=== PATIENT | female | born 1960 | race Two or more races ===

== ENCOUNTER 2016-12-15 22:25 | Emergency (ER) | payer MEDICAID ==
[~2016-12-15] VITALS: Ht 167.6 cm; Wt 97.5 kg
[2016-12-15 22:40] VITALS: BP 163/60
[2016-12-15] MEDS ORDERED: LORazepam Inj 2mg/ml 1ml IV ONE (22:45)
[2016-12-15] MEDS ORDERED: Albuterol ud Inhalation HHN ONE (22:45)
--- NOTE | 2016-12-15 22:46 | Emergency Room Report ---
History of Present Illness General Chief Complaint: General Complaint Source: Patient, Family Member Present Illness HPI The patient presents with 2 weeks of illness. It began when she was returning from [facility]. She had an episode of hypoglycemia when her blood sugar was 35. She ate some food that was not tasting proper on the plane. She's not felt well since that episode. Most recently though she has a cough. She denies asthma. She has been wheezing. The cough is not productive. There is no sore throat. She has a headache which she rates 8/10, worsened with coughing , pounding, frontal and top of head. Not worst ETIENNE and not sudden onset. No fevers or chills. Family state she suffers from anemia. She denies chest pain, NVD, dysuria. She complains of dizziness. She has continued to take her diabetes medicine and glucose has been better controlled. Allergies: Coded Allergies: No Known Allergies (Unverified , 12/15/16) Patient History Past Medical History: see triage record Social History: Denies: smoking Social History Narrative from [facility] Now: No Reviewed Nursing Documentation: PMH: Agreed, PSxH: Agreed Nursing Documentation-PMH Hx Hypertension: Yes Hx Diabetes: Yes Review of Systems All Other Systems: negative except mentioned in HPI Physical Exam Vital Signs Date Time Temp Pulse Resp B/P Pulse Ox O2 Delivery O2 Flow Rate FiO2 12/15/16 22:29 99.3 82 36 163/60 98 Room Air Sp02 EP Interpretation: reviewed, normal General Appearance: well appearing, no apparent distress, GCS 15 Head: normocephalic Eyes: bilateral eye EOMI, bilateral eye PERRL, bilateral eye normal inspection ENT: moist mucus membranes Neck: supple Respiratory: chest non-tender, lungs clear, normal breath sounds, wheezing - post tussive Cardiovascular #1: regular rate, rhythm Cardiovascular #2: 2+ radial (R) Gastrointestinal: normal inspection, normal bowel sounds, non tender, no mass, non-distended Musculoskeletal: back normal, gait/station normal, normal range of motion Neurologic: alert, oriented x3, 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, motor strength/tone normal, DTRs symmetric, sensory intact, cerebellar normal, normal gait, speech normal, grossly normal Psychiatric: anxious Skin: normal inspection, warm/dry Medical Decision Making Diagnostic Impression: Primary Impression: Upper respiratory infection Qualified Codes: J06.9 - Acute upper respiratory infection, unspecified; B97.89 - Other viral agents as the cause of diseases classified elsewhere Additional Impressions: Diabetes Qualified Codes: E11.8 - Type 2 diabetes mellitus with unspecified complications Bronchospasm ER Course Patient presents with 2 weeks of illness with cough and headache after return from [facility]. Ddx: pneumonia, viral syndrome, bronchitis, asthma, anxiety amongst others. No red flag sy or findings for the headache. Evidence of bronchospasm. Glucose and renal function needs to be assessed as well as excluding cardiac cause. Labs, CXR and EKG ordered. Breathing treatments ordered. Ativan also ordered as anxiety also significant component. Labs remarkable for normal WBC, minimal anemia. Glucose slightly elevated. ( Potassium felt to be more hemolysis as renal function upper limits of normal.) No peaked T waves on EKG. CXR without infiltrate. Patient improved with treatment. Resting in NAD. Lungs clear. Patient stable for outpatient observation and treatment. Labs Test 12/15/16 23:00 White Blood Count 8.1 K/UL (4.8-10.8) Red Blood Count 4.05 M/UL (4.20-5.40) Hemoglobin 11.6 G/DL (12.0-16.0) Hematocrit 35.6 % (37.0-47.0) Mean Corpuscular Volume 88 FL (80-99) Mean Corpuscular Hemoglobin 28.6 PG (27.0-31.0) Mean Corpuscular Hemoglobin Concent 32.5 G/DL (32.0-36.0) Red Cell Distribution Width 13.3 % (11.6-14.8) Platelet Count 271 K/UL (150-450) Mean Platelet Volume 8.9 FL (6.5-10.1) Neutrophils (%) (Auto) 71.5 % (45.0-75.0) Lymphocytes (%) (Auto) 18.2 % (20.0-45.0) Monocytes (%) (Auto) 6.9 % (1.0-10.0) Eosinophils (%) (Auto) 2.0 % (0.0-3.0) Basophils (%) (Auto) 1.4 % (0.0-2.0) Prothrombin Time 9.4 SEC (9.30-11.50) Prothromb Time International Ratio 0.9 (0.9-1.1) Activated Partial Thromboplast Time 26 SEC (23-33) Urine Color Pale yellow Urine Appearance Clear Urine pH 6 (4.5-8.0) Urine Specific Shepherd 1.005 (1.005-1.035) Urine Protein Negative (NEGATIVE) Urine Glucose (UA) 2+ (NEGATIVE) Urine Ketones Negative (NEGATIVE) Urine Occult Blood Negative (NEGATIVE) Urine Nitrite Negative (NEGATIVE) Urine Bilirubin Negative (NEGATIVE) Urine Urobilinogen Normal MG/DL (0.0-1.0) Urine Leukocyte Esterase 1+ (NEGATIVE) Urine RBC 0-2 /HPF (0 - 2) Urine WBC 0-2 /HPF (0 - 2) Urine Squamous Epithelial Cells Few /LPF (NONE/OCC) Urine Bacteria None /HPF (NONE) Sodium Level 136 mEQ/L (135-145) Potassium Level 5.5 mEQ/L (3.4-4.9) Chloride Level 100 mEQ/L (98-107) Carbon Dioxide Level 23 mEQ/L (20-30) Anion Gap 13 (5-15) Blood Urea Nitrogen 22 mg/dL (7-23) Creatinine 1.0 mg/dL (0.5-0.9) Estimat Glomerular Filtration Rate 56.9 mL/min (>60) Glucose Level 233 mg/dL (74-106) Lactic Acid Level 1.50 mmol/L (0.66-2.22) Calcium Level 9.3 mg/dL (8.6-10.2) Total Bilirubin 0.2 mg/dL (0.0-1.2) Aspartate Amino Transf (AST/SGOT) 34 U/L (5-40) Alanine Aminotransferase (ALT/SGPT) 18 U/L (3-33) Alkaline Phosphatase 70 U/L (35-104) Total Creatine Kinase 112 U/L (26-140) Troponin I < 0.30 ng/mL (<=0.30) Pro-B-Type Natriuretic Peptide 45 pg/mL (0-125) Total Protein 8.0 g/dL (6.6-8.7) Albumin 4.0 g/dL (3.5-5.2) Globulin 4.0 g/dL Albumin/Globulin Ratio 1.0 (1.0-2.7) Thyroid Stimulating Hormone (TSH) 1.690 uIU/mL (0.300-4.500) Salicylates Level < 1 mg/dL (10-30) Urine Opiates Screen Negative (NEGATIVE) Acetaminophen Level < 10 ug/mL (10-30) Urine Barbiturates Screen Negative (NEGATIVE) Phencyclidine (PCP) Screen Negative (NEGATIVE) Urine Amphetamines Screen Negative (NEGATIVE) Urine Benzodiazepines Screen Negative (NEGATIVE) Urine Cocaine Screen Negative (NEGATIVE) Urine Marijuana (THC) Screen Negative (NEGATIVE) Serum Alcohol < 10 mg/dL EKG Diagnostic Results Rate: normal Rhythm: NSR ST Segments: no acute changes Rhythm Strip Diag. Results EP Interpretation: yes Rhythm: NSR, no PVC's, no ectopy Chest X-Ray Diagnostic Results Chest X-Ray Diagnostic Results : Chest X-Ray Ordered: Yes # of Views/Limited/Complete: 1 View Indication: Other EP Interpretation: Yes Interpretation: no consolidation, no effusion, no pneumothorax, no acute cardiopulmonary disease Impression: No acute disease Interpreting ER Provider: Electronically signed by Sudeep Bautista MD Last Vital Signs Date Time Temp Pulse Resp B/P Pulse Ox O2 Delivery O2 Flow Rate FiO2 12/16/16 03:15 99.1 79 19 159/65 98 Room Air Status: improved Disposition: HOME, SELF-CARE Condition: Improved Scripts Acetaminophen (Tylenol) 325 Mg Tablet 650 MG ORAL Q6H Y for Prn Pain/Headache/Temp > 101, #30 TAB 0 Refills Prov: Sudeep Bautista M.D. 12/16/16 Codeine/Promethazine Hcl* (PROMETHAZINE-CODEINE SYRUP*) 118 Ml Syrup 5 ML ORAL Q6H Y for For Cough, #60 ML 0 Refills Prov: Sudeep Bautista M.D. 12/16/16 Albuterol Sulfate* (ALBUTEROL SULFATE MDI*) 8.5 Gm Hfa.aer.ad 2 PUFF INH Q6H, #1 EA 0 Refills Prov: Sudeep Bautista M.D. 12/16/16 Sudeep Bautista M.D. Dec 15, 2016 22:46
[2016-12-15 23:24] LABS: BASOPHILS % (AUTO) 1.4 % (0.0-2.0); LYMPHOCYTES % (AUTO) 18.2 % (20.0-45.0); MEAN CORPUSCULAR HEMOGLOBIN 28.6 PG (27.0-31.0); MEAN CORPUSCULAR HGB CONC 32.5 G/DL (32.0-36.0); MEAN CORPUSCULAR VOLUME 88 FL (80-99); MEAN PLATELET VOLUME 8.9 FL (6.5-10.1); MONOCYTES % (AUTO) 6.9 % (1.0-10.0); NEUTROPHILS % (AUTO) 71.5 % (45.0-75.0); PLATELET COUNT 271 K/UL (150-450); RED BLOOD COUNT 4.05 M/UL (4.20-5.40); RED CELL DISTRIBUTION WIDTH 13.3 % (11.6-14.8); WHITE BLOOD COUNT 8.1 K/UL (4.8-10.8)
[2016-12-15 23:27] LABS: APPEARANCE,URINE CLEAR; KETONES,URINE NEGATIVE (NEGATIVE); LEUKOCYTE ESTERASE ,URINE 1+ (NEGATIVE); NITRITE,URINE NEGATIVE (NEGATIVE); PH,URINE 6 (4.5-8.0); PROTEIN,URINE NEGATIVE (NEGATIVE); UROBILINOGEN,URINE NORMAL MG/DL (0.0-1.0)
[2016-12-15 23:31] LABS: INR 0.9 (0.9-1.1); PROTHROMBIN TIME 9.4 SEC (9.30-11.50); RBC,URINE 0-2 /HPF (0 - 2); SQUAMOUS EPITHELIAL CELL,UR FEW /LPF (NONE/OCC); WBC,URINE 0-2 /HPF (0 - 2)
[2016-12-15 23:35] LABS: TROPONIN I < 0.30 ng/mL (<=0.30)
[2016-12-15 23:38] LABS: ACETAMINOPHEN < 10 ug/mL (10-30); ALANINE AMINOTRANSFERASE 18 U/L (3-33); ALCOHOL < 10 mg/dL; ANION GAP 13 (5-15); ASPARTATE AMINO TRANSFERASE 34 U/L (5-40); CALCIUM 9.3 mg/dL (8.6-10.2); CARBON DIOXIDE 23 mEQ/L (20-30); CHLORIDE 100 mEQ/L (98-107); GLOMERULAR FILTRATION RATE 56.9 mL/min (>60); HEMOLYSIS 170; POTASSIUM 5.5 mEQ/L (3.4-4.9); SODIUM 136 mEQ/L (135-145)
[2016-12-16 00:40] VITALS: BP 155/61
[2016-12-16 02:40] VITALS: BP 149/69
[2016-12-16] MEDS ORDERED: PROMETHAZINE-C118 M1 ORAL (02:51)
[2016-12-16] MEDS ORDERED: TYLENOL325 MG ORAL (02:51)
[2016-12-16] MEDS ORDERED: ALBUTEROL SULF8.5 GM INH (02:51)
[2016-12-16 03:15] VITALS: BP 159/65
--- NOTE | 2016-12-16 09:29 | Diagnostic Imaging Report ---
Indication: Chest pain Technique: XRAY CHEST 1 V Comparison:None Findings: The patient has taken a poor inspiration. The heart is at the upper limits of normal size. Lungs are grossly clear. No pleural fluid. Bones are unremarkable. Study is underpenetrated due to patient body habitus. Impression: Poor inspiration with some underpenetration due to patient body habitus. Heart the upper limits of normal size. No gross acute abnormality.
== END 2016-12-16 03:15 | disposition home or self-care (01) ==
LOC: EMR 22:44
DX: J06.9 Acute upper respiratory infection, unspecified (principal); J98.01 Acute bronchospasm; E11.8 Type 2 diabetes mellitus with unspecified complications; I10 Essential (primary) hypertension; R42 Dizziness and giddiness
CPT/HCPCS: 36415; 71010; 80053; 80300; 80329; 81003; 82550; 82962; 83605; 83880; 84443; 84484; 85025; 85610; 85730; 93005; 94640; 96360; 96374

== ENCOUNTER 2017-05-29 23:09 | Emergency (ER) | payer MEDICAID ==
[~2017-05-29] VITALS: Ht 160 cm; Wt 95.3 kg
[~2017-05-29 23:09] MED LIST: ALBUTEROL SULF8.5 GM INH; PROMETHAZINE-C118 M1 ORAL; TYLENOL325 MG ORAL
[2017-05-29] MEDS ORDERED: DOXYCYCLINE MO100 MG ORAL (23:52)
[2017-05-29] MEDS ORDERED: MUPIROCIN22 GM TOPIC (23:52)
--- NOTE | 2017-05-29 23:52 | Emergency Room Report ---
History of Present Illness General Chief Complaint: Wound Recheck/Suture Removal Source: Patient Present Illness HPI This is a 56-year-old female with a history of diabetes. She presents with chief complaint of pain to her left foot. She said she noticed some pain in the sole of the left foot. She thought it may be a foreign body there. She remove her socks and said that there was a crack in the skin. Is very painful. Pain radiates to her leg. No fever chills no nausea vomiting. No discharge. No redness. Onset for 2-3 days now. Allergies: Coded Allergies: No Known Allergies (Unverified , 12/15/16) Patient History Past Medical History: see triage record, old chart reviewed, DM Past Surgical History: other Pertinent Family History: none Social History: Denies: smoking Now: No Immunizations: other Reviewed Nursing Documentation: PMH: Agreed, PSxH: Agreed Nursing Documentation-PMH Hx Hypertension: Yes Hx Diabetes: Yes Review of Systems Eye: Denies: eye pain, blurred vision ENT: Denies: ear pain, nose congestion, throat swelling Respiratory: Denies: cough, shortness of breath Cardiovascular: Denies: chest pain, palpitations Gastrointestinal: Denies: abdominal pain, diarrhea, nausea, vomiting Musculoskeletal: Denies: back pain, joint pain Skin: Denies: rash Neurological: Denies: headache, numbness Endocrine: Denies: increased thirst, increased urine Hematologic/Lymphatic: Denies: easy bruising All Other Systems: negative except mentioned in HPI Physical Exam Vital Signs Date Time Temp Pulse Resp B/P (MAP) Pulse Ox O2 Delivery O2 Flow Rate FiO2 05/29/17 23:19 97.9 67 16 148/74 96 Room Air vitals normal Sp02 EP Interpretation: reviewed, normal General Appearance: well appearing, no apparent distress, alert, obese Head: normocephalic, atraumatic Eyes: bilateral eye PERRL, bilateral eye EOMI ENT: hearing grossly normal, normal pharynx Neck: full range of motion, supple, no meningismus Respiratory: chest non-tender, lungs clear, normal breath sounds Cardiovascular #1: regular rate, rhythm, no murmur Gastrointestinal: normal bowel sounds, non tender, no mass, no organomegaly, no bruit, non-distended Musculoskeletal: back normal, gait/station normal, normal range of motion, other - Left foot: On the sole of the foot, she has dry skin and calluses. There is a 3 cm crack in the callus with underlying skin exposed. No evidence of infection. No drainage. Psychiatric: mood/affect normal Skin: warm/dry Medical Decision Making Diagnostic Impression: Primary Impression: Diabetic foot ulcer Qualified Codes: E11.621 - Type 2 diabetes mellitus with foot ulcer; L97.511 - Non-pressure chronic ulcer of other part of right foot limited to breakdown of skin ER Course Patient with a break in his skin, or ulcers last callus of her foot. Increased risk for infection. Right now I see no evidence of infection or foreign body. No evidence of abscess or necrotizing fasciitis. We'll discharge home prescription for antibiotics. Last Vital Signs Date Time Temp Pulse Resp B/P (MAP) Pulse Ox O2 Delivery O2 Flow Rate FiO2 05/29/17 23:24 97.9 88 16 148/74 96 Room Air Status: unchanged Disposition: HOME, SELF-CARE Condition: Stable Scripts Mupirocin* (MUPIROCIN*) 22 Gm Oint...g. 1 APPLIC TOPIC THREE TIMES A DAY, #22 GM Prov: BANDAR RAMIREZ M.D. 05/29/17 Doxycycline Monohydrate* (DOXYCYCLINE MONOHYDRATE*) 100 Mg Capsule 100 MG ORAL Q12H, #14 CAP 0 Refills Prov: BANDAR RAMIREZ M.D. 05/29/17 Referrals: [facility],REFERRING (PCP) Additional Instructions: Keep wound clean. Followup with your DrMery in 7 days. Return for evidence of infection. BANDAR RAMIREZ M.D. May 29, 2017 23:52
[2017-05-29 23:53] VITALS: BP 148/74
[2017-05-30] MEDS ORDERED: Bacitracin Oint UD TOPIC ONE
== END 2017-05-30 00:01 | disposition home or self-care (01) ==
LOC: EMR 23:38
DX: E11.621 Type 2 diabetes mellitus with foot ulcer (principal); L97.511 Non-pressure chronic ulcer of other part of right foot limited to breakdown of skin; I10 Essential (primary) hypertension
CPT/HCPCS: 99284

== ENCOUNTER 2018-02-06 04:11 | Emergency (ER) | payer MEDICAID ==
[~2018-02-06] VITALS: Ht 160 cm; Wt 95.3 kg
[~2018-02-06 04:11] MED LIST changes: +DOXYCYCLINE MO100 MG ORAL; +MUPIROCIN22 GM TOPIC
[2018-02-06 04:20] VITALS: BP 151/73
--- NOTE | 2018-02-06 04:41 | Emergency Room Report ---
History of Present Illness General Chief Complaint: Headache Source: Patient, Medical Record Present Illness HPI Is a 57-year-old female with history of high blood pressure and diabetes. She presents with chief complaint of body pain and headache and forgetfulness. Has been ongoing for over a month. Saw yesterday and x-rays ordered for her shoulder. She said that pain usually worse at night. Has nausea but no vomiting. Also complaining of increasing forgetfulness. No focal deficit. No fever chills. Pain is throbbing in nature. Nothing made it better. Nothing made it worse. No incontinence of bowel or urine. Allergies: Coded Allergies: No Known Allergies (Unverified , 12/15/16) Patient History Past Medical History: see triage record, old chart reviewed, DM, HTN Past Surgical History: other Pertinent Family History: none Social History: Denies: smoking Now: No Immunizations: other Reviewed Nursing Documentation: PMH: Agreed; PSxH: Agreed Nursing Documentation-PMH Hx Hypertension: Yes Hx Diabetes: Yes Review of Systems Eye: Denies: eye pain, blurred vision ENT: Denies: ear pain, nose congestion, throat swelling Respiratory: Denies: cough, shortness of breath Cardiovascular: Denies: chest pain, palpitations Gastrointestinal: Denies: abdominal pain, diarrhea, nausea, vomiting Musculoskeletal: Denies: back pain, joint pain Skin: Denies: rash Neurological: Denies: headache, numbness Endocrine: Denies: increased thirst, increased urine Hematologic/Lymphatic: Denies: easy bruising All Other Systems: negative except mentioned in HPI Physical Exam Vital Signs Date Time Temp Pulse Resp B/P (MAP) Pulse Ox O2 Delivery O2 Flow Rate FiO2 02/06/18 04:14 98.5 70 16 151/73 97 Room Air 98.4 vitals with high blood pressure Sp02 EP Interpretation: reviewed, normal General Appearance: well appearing, no apparent distress, alert, obese Head: normocephalic, atraumatic Eyes: bilateral eye PERRL, bilateral eye EOMI ENT: hearing grossly normal, normal pharynx Neck: full range of motion, supple, no meningismus Respiratory: chest non-tender, lungs clear, normal breath sounds Cardiovascular #1: regular rate, rhythm, no murmur Gastrointestinal: normal bowel sounds, non tender, no mass, no organomegaly, no bruit, non-distended Musculoskeletal: back normal, gait/station normal, normal range of motion Psychiatric: mood/affect normal Skin: warm/dry Medical Decision Making Diagnostic Impression: Primary Impression: Headache Qualified Codes: R51 - Headache Additional Impression: Arthralgia Qualified Codes: M25.50 - Pain in unspecified joint ER Course Patient presents with headache, body pain and forgetfulness. Labs unremarkable. No evidence of infection. No evidence of TIA or CVA. No acute process going on. We'll discharge home with outpatient follow-up. Lab Results Impression labs unremarkable CT/MRI/US Diagnostic Results CT/MRI/US Diagnostic Results : Imaging Test Ordered: CT head Impression negative per radiologist Last Vital Signs Date Time Temp Pulse Resp B/P (MAP) Pulse Ox O2 Delivery O2 Flow Rate FiO2 02/06/18 04:14 98.5 70 16 151/73 97 Room Air 98.4 Status: improved Disposition: HOME, SELF-CARE Condition: Stable Scripts Meloxicam* (MOBIC*) 7.5 Mg Tablet 7.5 MG ORAL DAILY, #30 TAB 0 Refills Prov: BANDAR RAMIREZ M.D. 02/06/18 Referrals: NON PHYSICIAN (PCP) Patient Instructions: General Headache Without Cause Additional Instructions: Follow-up with your doctor in 7 days. Return if worse. BANDAR RAMIREZ M.D. Feb 06, 2018 04:40
[2018-02-06] MEDS ORDERED: Ketorolac 30mg Inj IV ONE (04:45)
[2018-02-06 04:52] LABS: APPEARANCE,URINE CLEAR; BILIRUBIN, URINE NEGATIVE (NEGATIVE); COLOR,URINE PALE YELLOW; GLUCOSE, URINE (UA) 1+ (NEGATIVE); KETONES,URINE NEGATIVE (NEGATIVE); LEUKOCYTE ESTERASE ,URINE 1+ (NEGATIVE); NITRITE,URINE NEGATIVE (NEGATIVE); PH,URINE 7 (4.5-8.0); PROTEIN,URINE NEGATIVE (NEGATIVE); UROBILINOGEN,URINE NORMAL MG/DL (0.0-1.0)
[2018-02-06 05:17] LABS: BASOPHILS % (AUTO) 0.7 % (0.0-2.0); HEMATOCRIT 35.6 % (37.0-47.0); HEMOGLOBIN 11.3 G/DL (12.0-16.0); LYMPHOCYTES % (AUTO) 17.2 % (20.0-45.0); MEAN CORPUSCULAR VOLUME 85 FL (80-99); MONOCYTES % (AUTO) 6.2 % (1.0-10.0); NEUTROPHILS % (AUTO) 73.9 % (45.0-75.0); PLATELET COUNT 236 K/UL (150-450); RED CELL DISTRIBUTION WIDTH 12.7 % (11.6-14.8); WHITE BLOOD COUNT 7.6 K/UL (4.8-10.8)
[2018-02-06 05:25] LABS: ANION GAP 8 mmol/L (5-15); BLOOD UREA NITROGEN 26 mg/dL (7-18); CALCIUM 8.9 MG/DL (8.5-10.1); CARBON DIOXIDE 27 MMOL/L (21-32); CHLORIDE 106 MMOL/L (98-107); SODIUM 141 MMOL/L (136-145)
[2018-02-06 05:36] VITALS: BP 138/50
--- NOTE | 2018-02-06 05:46 | Diagnostic Imaging Report ---
EXAM: CT Head Without Intravenous Contrast CLINICAL HISTORY: AMS TECHNIQUE: Axial computed tomography images of the head/brain without intravenous contrast. CTDI is 70.43 mGy and DLP is 1397 mGy-cm. One or more of the following dose reduction techniques were used: automated exposure control, adjustment of the mA and/or kV according to patient size, use of iterative reconstruction technique. COMPARISON: No relevant prior studies available. FINDINGS: Artifacts: Motion artifact degrade image quality. Brain: Unremarkable. No hemorrhage. No significant white matter disease. No edema. Ventricles: Unremarkable. No ventriculomegaly. Bones/joints: Unremarkable. No acute fracture. Soft tissues: Unremarkable. Sinuses: Mild mucosal thickening in the ethmoid sinuses. Mastoid air cells: Unremarkable as visualized. No mastoid effusion. IMPRESSION: Motion artifact. No acute intracranial abnormality. As indicated, consider further evaluation with MR to exclude hyperacute infarct
[2018-02-06] MEDS ORDERED: MOBIC7.5 MG ORAL (06:02)
[2018-02-06 06:07] VITALS: BP 138/50
== END 2018-02-06 06:19 | disposition home or self-care (01) ==
LOC: EMR 04:32
DX: R51 Headache (principal); M25.50 Pain in unspecified joint; E11.9 Type 2 diabetes mellitus without complications; I10 Essential (primary) hypertension; R11.0 Nausea
CPT/HCPCS: 36415; 70450; 80048; 81001; 85025; 96361; 96374; 99284; J1885

== ENCOUNTER 2018-09-11 20:42 | Inpatient (IN) | payer MEDICAID ==
[~2018-09-11] VITALS: Ht 157.5 cm; Wt 97.5 kg
[~2018-09-11 20:42] MED LIST changes: +MOBIC7.5 MG ORAL
[2018-09-11] MEDS ORDERED: GLUCOTROL XL10 MG ORAL (21:08)
[2018-09-11] MEDS ORDERED: ASPIR 8181 MG ORAL (21:08)
[2018-09-11] MEDS ORDERED: BENAZEPRIL HCL20 MG ORAL (21:08)
[2018-09-11] MEDS ORDERED: METFORMIN HCL1000 M1 ORAL (21:08)
[2018-09-11 21:10] VITALS: BP 110/54
--- NOTE | 2018-09-11 21:10 | NUR ---
ED Nurse Note: pt walked in c/o abd pain, ETIENNE, and dizziness x 1 day, pt denies n/v/d, denies fever. pt AA&ox4, gcs=15, skin warm and dry, afebrile, resp even and unlabored on RA, +tenderness on abd, -n/v/d at this time, active BS, ambulates w/ steady gait, will cont monitor. VSS.
[2018-09-11] MEDS ORDERED: Isovue-300 100ml vial INJ PRN (21:30)
[2018-09-11] MEDS ORDERED: Morphine Sulfate 4mg/ml Inj (IV USE ONLY) IVP ONE (21:30)
[2018-09-11] MEDS ORDERED: Metoclopramide 10mg/2ml Inj IVP ONE (21:30)
[2018-09-11 22:02] LABS: APPEARANCE,URINE SLIGHTLY CLOUDY; BILIRUBIN, URINE NEGATIVE (NEGATIVE); COLOR,URINE YELLOW; GLUCOSE, URINE (UA) NEGATIVE (NEGATIVE); KETONES,URINE 1+ (NEGATIVE); LEUKOCYTE ESTERASE ,URINE 2+ (NEGATIVE); NITRITE,URINE NEGATIVE (NEGATIVE); PH,URINE 5 (4.5-8.0); PROTEIN,URINE 3+ (NEGATIVE); UROBILINOGEN,URINE 1 MG/DL (0.0-1.0)
[2018-09-11 22:03] LABS: HEMATOCRIT 33.9 % (37.0-47.0); HEMOGLOBIN 10.8 G/DL (12.0-16.0); MEAN CORPUSCULAR VOLUME 83 FL (80-99); PLATELET COUNT 231 K/UL (150-450); RED BLOOD COUNT 4.09 M/UL (4.20-5.40); RED CELL DISTRIBUTION WIDTH 13.9 % (11.6-14.8); WHITE BLOOD COUNT 13.3 K/UL (4.8-10.8)
[2018-09-11 22:10] VITALS: BP 112/51
[2018-09-11 22:19] LABS: ANION GAP 12 mmol/L (5-15); BLOOD UREA NITROGEN 24 mg/dL (7-18); CALCIUM 9.1 MG/DL (8.5-10.1); CARBON DIOXIDE 25 MMOL/L (21-32); CHLORIDE 102 MMOL/L (98-107); CREATININE 1.2 MG/DL (0.55-1.30); POTASSIUM 4.3 MMOL/L (3.5-5.1); SODIUM 139 MMOL/L (136-145)
[2018-09-11 22:25] LABS: ALANINE AMINOTRANSFERASE 32 U/L (12-78); ALBUMIN 3.8 G/DL (3.4-5.0); ALBUMIN/GLOBULIN RATIO 0.8 (1.0-2.7); ALKALINE PHOSPHATASE 76 U/L (46-116); ASPARTATE AMINO TRANSFERASE 15 U/L (15-37); BILIRUBIN,TOTAL 0.3 MG/DL (0.2-1.0)
--- NOTE | 2018-09-11 22:30 | NUR ---
ED Nurse Note: pt provided with warm blanket for comfort. VSS. will cont monitor.
--- NOTE | 2018-09-11 22:36 | NUR ---
ED Nurse Note: pt off to CT.
[2018-09-11 23:10] VITALS: BP 108/54
--- NOTE | 2018-09-11 23:15 | Diagnostic Imaging Report ---
EXAM: CT Abdomen and Pelvis With Intravenous Contrast CLINICAL HISTORY: ABD PAIN TECHNIQUE: Axial computed tomography images of the abdomen and pelvis with intravenous contrast. CTDI is 19.66 mGy and DLP is 1035 mGy-cm. One or more of the following dose reduction techniques were used: automated exposure control, adjustment of the mA and/or kV according to patient size, use of iterative reconstruction technique. COMPARISON: none FINDINGS: Lung bases: Unremarkable. No mass. No consolidation. ABDOMEN: Liver: Unremarkable. No mass. Gallbladder and bile ducts: Unremarkable. No calcified stones. No ductal dilation. Pancreas: Unremarkable. No mass. No ductal dilation. Spleen: Unremarkable. No splenomegaly. Adrenals: Unremarkable. No mass. Kidneys and ureters: Unremarkable. No solid mass. No hydronephrosis. Stomach and bowel: Unremarkable. No obstruction. No mucosal thickening. PELVIS: Appendix: An appendicolith is present at the appendiceal orifice and the appendix is mildly dilated to 9 mm diameter no significant periappendiceal inflammatory stranding is present. Bladder: Unremarkable. No mass. Reproductive: Hysterectomy. ABDOMEN and PELVIS: Intraperitoneal space: Unremarkable. No free air. No significant fluid collection. Bones/joints: No acute fracture. No dislocation. Soft tissues: Unremarkable. Vasculature: Unremarkable. No abdominal aortic aneurysm. Lymph nodes: Unremarkable. No enlarged lymph nodes. IMPRESSION: No definite acute pathology in the abdomen or pelvis. Note that patient has an appendicolith in the proximal appendix and the more distal appendix is slightly distended. Correlate for any clinical findings of inflammation as early acute appendicitis can appear similar.
[2018-09-12] VITALS (11 sets, daily range): BP systolic 116–148; BP diastolic 48–82
--- NOTE | 2018-09-12 00:52 | Consultation ---
History of Present Illness General Date patient seen: Sep 12, 2018 Reason for Hospitalization: Abdominal Pain Present Illness HPI 58F hx of DM, HTN, prior c section presented to ED with complaints of abdominal pain which is generalized mid abdominal cramping with radiation to RLQ. states pain started last night / this morning. No associated nausea or emesis. BM today which was a bit more loose than usual. Pain cramping 8/10 worse with movement and palpation. CT with appendicolith and dilated appendix. leukocytosis. surgery called to evaluate. patient seen, chart reviewed, patient examined. Allergies: Coded Allergies: No Known Allergies (Unverified , 12/15/16) Medication History Scheduled Aspirin* (Aspir 81*), 81 MG ORAL DAILY, (Reported) Benazepril Hcl* (Benazepril Hcl*), 20 MG ORAL EVERY 12 HOURS, (Reported) Glipizide* (Glucotrol Xl*), 10 MG ORAL ACBREAKFAST, (Reported) Meloxicam* (Mobic*), 7.5 MG ORAL DAILY Metformin Hcl* (Metformin Hcl*), 1,000 MG ORAL DAILY, (Reported) Patient History History Provided By: Patient, Medical Record, PMD Healthcare decision maker Resuscitation status Advanced Directive on File Review of Systems Review of Symptoms General ROS: no weight loss or fever Psychological ROS: no depression or mood changes, no memory loss Ophthalmic ROS: no visual changes or eye irritation ENT ROS: no nasal congestion, hearing loss, dizziness Allergy and Immunology ROS: no allergic symptoms or urticaria Hematological and Lymphatic ROS: no swollen glands, unusual bleeding or bruising Endocrine ROS: no polyuria, polydipsia, weight changes, temperature intolerance Respiratory ROS: no cough, shortness of breath, or wheezing Cardiovascular ROS: no chest pain or dyspnea on exertion Gastrointestinal ROS: abdominal pain, no bright red blood in stool. Musculoskeletal ROS: no myalgias or arthralgias Neurological ROS: no TIA or stroke symptoms Dermatological ROS: no new or changing skin lesions, rashes or pruritis Physical Exam Physical Exam General appearance: alert, cooperative, no distress, appears stated age Head: Normocephalic, without obvious abnormality, atraumatic Eyes: conjunctivae/corneas clear. PERRL, EOM's intact. Fundi benign Throat: Lips, mucosa, and tongue normal. Teeth and gums normal Neck: supple, symmetrical, trachea midline, no adenopathy, thyroid: not enlarged, symmetric, no tenderness/mass/nodules, no carotid bruit and no JVD Lungs: clear to auscultation bilaterally Heart: regular rate and rhythm, S1, S2 normal, no murmur, click, rub or gallop Abdomen: soft, tender on right side and mid abdomen. Bowel sounds normal. No masses, no organomegaly Extremities: extremities normal, atraumatic, no cyanosis or edema Pulses: 2+ and symmetric Skin: Skin color, texture, turgor normal. No rashes or lesions Neurologic: Grossly normal Last 24 Hour Vital Signs Date Time Temp Pulse Resp B/P (MAP) Pulse Ox O2 Delivery O2 Flow Rate FiO2 09/11/18 23:10 97.7 71 18 108/54 100 Room Air 09/11/18 22:10 97.7 73 18 112/51 100 Room Air 09/11/18 21:10 98.8 84 16 110/54 96 Room Air 09/11/18 21:10 84 16 Room Air 09/11/18 21:03 98.8 84 26 117/60 96 Room Air Laboratory Tests Test 09/11/18 21:40 09/11/18 21:42 Urine Color Yellow Urine Appearance Slightly cloudy Urine pH 5 (4.5-8.0) Urine Specific [place] 1.020 (1.005-1.035) Urine Protein 3+ (NEGATIVE) H Urine Glucose (UA) Negative (NEGATIVE) Urine Ketones 1+ (NEGATIVE) H Urine Blood Negative (NEGATIVE) Urine Nitrite Negative (NEGATIVE) Urine Bilirubin Negative (NEGATIVE) Urine Urobilinogen 1 MG/DL (0.0-1.0) H Urine Leukocyte Esterase 2+ (NEGATIVE) H Urine RBC 0-2 /HPF (0 - 2) Urine WBC 5-10 /HPF (0 - 2) H Urine Squamous Epithelial Cells Moderate /LPF (NONE/OCC) H Urine Bacteria Few /HPF (NONE) Urine Mucus Many /LPF (NONE/OCC) H White Blood Count 13.3 K/UL (4.8-10.8) H Red Blood Count 4.09 M/UL (4.20-5.40) L Hemoglobin 10.8 G/DL (12.0-16.0) L Hematocrit 33.9 % (37.0-47.0) L Mean Corpuscular Volume 83 FL (80-99) Mean Corpuscular Hemoglobin 26.3 PG (27.0-31.0) L Mean Corpuscular Hemoglobin Concent 31.7 G/DL (32.0-36.0) L Red Cell Distribution Width 13.9 % (11.6-14.8) Platelet Count 231 K/UL (150-450) Mean Platelet Volume 7.1 FL (6.5-10.1) Neutrophils (%) (Auto) % (45.0-75.0) Lymphocytes (%) (Auto) % (20.0-45.0) Monocytes (%) (Auto) % (1.0-10.0) Eosinophils (%) (Auto) % (0.0-3.0) Basophils (%) (Auto) % (0.0-2.0) Sodium Level 139 MMOL/L (136-145) Potassium Level 4.3 MMOL/L (3.5-5.1) Chloride Level 102 MMOL/L (98-107) Carbon Dioxide Level 25 MMOL/L (21-32) Anion Gap 12 mmol/L (5-15) Blood Urea Nitrogen 24 mg/dL (7-18) H Creatinine 1.2 MG/DL (0.55-1.30) Estimat Glomerular Filtration Rate 45.9 mL/min (>60) Glucose Level 116 MG/DL (74-106) H Calcium Level 9.1 MG/DL (8.5-10.1) Total Bilirubin 0.3 MG/DL (0.2-1.0) Aspartate Amino Transf (AST/SGOT) 15 U/L (15-37) Alanine Aminotransferase (ALT/SGPT) 32 U/L (12-78) Alkaline Phosphatase 76 U/L (46-116) Total Protein 8.4 G/DL (6.4-8.2) H Albumin 3.8 G/DL (3.4-5.0) Globulin 4.6 g/dL Albumin/Globulin Ratio 0.8 (1.0-2.7) L Lipase 132 U/L (73-393) Height (Feet): 5 Height (Inches): 3.00 Weight (Pounds): 215 Medications Current Medications Medications (Trade) Dose Ordered Sig/Nguyen Route PRN Reason Start Time Stop Time Status Last Admin Dose Admin Iopamidol (Isovue-300 100ml) 100 ml NOW PRN INJ Radiology Procedure 09/11/18 21:30 Assessment/Plan Problem List: (1) Abdominal pain Assessment & Plan: Abdominal pain x 1 day. no n/v/f/c. leukocytosis. CT with appendicolith and dilated appendix. exam as above possible appendicitis but exam and CT not completely consistent with appy. possible early appy given duration. discussed findings with patient. discussed surgery and care plan patient expressed [facility] and Narcotics for now. AM labs if pain worsening, start IV Abx and given narcotics. will then plan for appendectomy if pain improved without intervention will plan for d/c tomorrow after trial diet. will examine in AM thank you ICD Codes: R10.9 - Unspecified abdominal pain SNOMED: [id number] [facility] Hospital declaration INPATIENT level of care is warranted for this patient because patient is a 89 year old with who presents with suspicion of . I have a high level of concern because . Patient is at high risk for . Plan of care/treatment include . Patient care is expected to be greater than 2 midnights. OBSERVATION level of care is warranted for this patient. Patient is a 89 year old with who presents with . Patient will be admitted for 1 midnight, but if additional night(s) is/are necessary, patient will be converted to inpatient status for the entire hospitalization Disposition: Once the patient is stable to leave the hospital, I anticipate the patient will likely be discharged to the following environment: Estimated discharge date: I spent 70 minutes on this patient's case, and minutes was dedicated to counseling and/or care coordination. MIPS (Merit-based Incentive Payment System) Applicable CPT: 79430, 35342 CHECK ALL THAT ARE MET: Measure #5 (CHF): All ages. Prescribe CALVIN/ARB upon discharge for patients with left ventricular systolic dysfunction. If not, the reason is clearly documented in the medical chart. Measure #8 (CHF): All ages. Prescribe a beta luly upon discharge for patients with left ventricular systolic dysfunction. If not, the reason is clearly documented in the medical chart. Measure #47 Advance care plan or surrogate decision maker documented in the medical record. Measure #130 The provider has documented, updated, or reviewed the patients current medication list and has documented it in the patients note. Measure #374 (All): Send report to referring provider. Measure #407(Sepsis due to MSSA bacteremia): Age 18+ Patient treated with a beta-lactam antibiotic (Nafcillin, Oxacillin or Cefazolin) as definitive therapy. MEDICAL COMPLEXITY High complexity medical decision making (need 2/3 categories) Problem - need 4 points Acute/new problem with new plan for workup (4 points, 1 max) Acute/new problem without additional workup (3 points, 1 max) Unstable chronic problem actively being managed (2 point each, 2 max) Stable chronic problem actively being managed (1 point each, 2 max) Self-limited/transient process (constipation, muscle ache, etc) (1 point each , 2 max) Data - need 4 points Reviewed labs/imaging studies (1 points, 2 max) Independent review of imaging (EKG, xrays, etc) (2 points, 2 max) Discussed case with consult/other MD/RN (2 points, 2 max) High Risk - qualify if have one of the following: Severe exacerbation of acute problem, acute mental status change, IV narcotics , monitoring drug levels (vancomycin, INR, tacrolimus etc) Primitivo Hart Sep 12, 2018 00:52
--- NOTE | 2018-09-12 01:14 | Emergency Room Report ---
History of Present Illness General Chief Complaint: Abdominal Pain Source: Patient, Medical Record, PMD Present Illness HPI 58-year-old female presents ED for evaluation. Patient brought in by family complaining of dizziness, abdominal pain, vomiting 1 day. Pain is sharp, 10 out of 10, nonradiating. Denies fevers chills. Denies chest pain or shortness of breath. Denies any diarrhea. Denies any headache or blurry vision. No other aggravating relieving factors. Denies any other associated symptoms Allergies: Coded Allergies: No Known Allergies (Unverified , 12/15/16) Patient History Past Medical History: DM, HTN Past Surgical History: none Pertinent Family History: none Social History: Denies: smoking, alcohol use, drug use Now: No Immunizations: UTD Reviewed Nursing Documentation: PMH: Agreed; PSxH: Agreed Nursing Documentation-PMH Past Medical History: No History, Except For Hx Hypertension: Yes Hx Diabetes: Yes Review of Systems All Other Systems: negative except mentioned in HPI Physical Exam Vital Signs Date Time Temp Pulse Resp B/P (MAP) Pulse Ox O2 Delivery O2 Flow Rate FiO2 09/11/18 21:03 98.8 84 26 117/60 96 Room Air Sp02 EP Interpretation: reviewed, normal General Appearance: no apparent distress, alert, GCS 15, non-toxic, obese Head: normocephalic, atraumatic Eyes: bilateral eye normal inspection, bilateral eye PERRL ENT: hearing grossly normal, normal pharynx, no angioedema, normal voice Neck: full range of motion, supple/symm/no masses Respiratory: chest non-tender, lungs clear, normal breath sounds, speaking full sentences Cardiovascular #1: regular rate, rhythm, no edema Cardiovascular #2: 2+ carotid (R), 2+ carotid (L), 2+ radial (R), 2+ radial (L) , 2+ dorsalis pedis (R), 2+ dorsalis pedis (L) Gastrointestinal: normal bowel sounds, soft, non-distended, no guarding, no rebound, tenderness Rectal: deferred Genitourinary: normal inspection, no CVA tenderness Musculoskeletal: back normal, gait/station normal, normal range of motion, non- tender Neurologic: alert, oriented x3, responsive, motor strength/tone normal, sensory intact, speech normal Psychiatric: judgement/insight normal, memory normal, mood/affect normal, no suicidal/homicidal ideation Reflexes: 3+ bicep (R), 3+ bicep (L), 3+ tricep (R), 3+ tricep (L), 3+ knee (R) , 3+ knee (L) Skin: normal color, no rash, warm/dry, well hydrated Lymphatic: no adenopathy Medical Decision Making Diagnostic Impression: Primary Impression: Abdominal pain Qualified Codes: R10.31 - Right lower quadrant pain Additional Impression: Appendicitis Qualified Codes: K37 - Unspecified appendicitis ER Course Hospital Course 58-year-old F presents to ED with abd pain with vomiting Differential diagnoses include: Appendicitis, cholecystitis, small bowel obstruction Clinical course Patient placed on stretcher. playground monitor. After initial history and physical I ordered labs, IV fluids, UA, pain medication and CT scan Labs - leukocytosis noted, Hb/Hct stable. electrolytes ok. UA unremarkable CT abdomen and pelvis - enlarged appendix, ? appendicitis Dr Hart (surgery) at bedside to evaluate patient. Agrees that appendicitis is a possibility. Recommends no antibiotics and serial abdominal exams Case discussed with Dr. Nguyen and he agreed to accept the patient to his service for further care and support I feel this is a highly complex case requiring extensive working including EKG/ Rhythm strip, Xray/CT/US, Blood/urine lab work, repeat exams while in ED, and administration of strong opiates/narcotics for pain control, admission to hospital or close patient follow up. Diagnosis - abdominal pain, appendicitis Patient admitted to floor in serious condition Labs Test 09/11/18 21:40 09/11/18 21:42 Urine Color Yellow Urine Appearance Slightly cloudy Urine pH 5 (4.5-8.0) Urine Specific [place] 1.020 (1.005-1.035) Urine Protein 3+ (NEGATIVE) Urine Glucose (UA) Negative (NEGATIVE) Urine Ketones 1+ (NEGATIVE) Urine Blood Negative (NEGATIVE) Urine Nitrite Negative (NEGATIVE) Urine Bilirubin Negative (NEGATIVE) Urine Urobilinogen 1 MG/DL (0.0-1.0) Urine Leukocyte Esterase 2+ (NEGATIVE) Urine RBC 0-2 /HPF (0 - 2) Urine WBC 5-10 /HPF (0 - 2) Urine Squamous Epithelial Cells Moderate /LPF (NONE/OCC) Urine Bacteria Few /HPF (NONE) Urine Mucus Many /LPF (NONE/OCC) White Blood Count 13.3 K/UL (4.8-10.8) Red Blood Count 4.09 M/UL (4.20-5.40) Hemoglobin 10.8 G/DL (12.0-16.0) Hematocrit 33.9 % (37.0-47.0) Mean Corpuscular Volume 83 FL (80-99) Mean Corpuscular Hemoglobin 26.3 PG (27.0-31.0) Mean Corpuscular Hemoglobin Concent 31.7 G/DL (32.0-36.0) Red Cell Distribution Width 13.9 % (11.6-14.8) Platelet Count 231 K/UL (150-450) Mean Platelet Volume 7.1 FL (6.5-10.1) Neutrophils (%) (Auto) % (45.0-75.0) Lymphocytes (%) (Auto) % (20.0-45.0) Monocytes (%) (Auto) % (1.0-10.0) Eosinophils (%) (Auto) % (0.0-3.0) Basophils (%) (Auto) % (0.0-2.0) Sodium Level 139 MMOL/L (136-145) Potassium Level 4.3 MMOL/L (3.5-5.1) Chloride Level 102 MMOL/L (98-107) Carbon Dioxide Level 25 MMOL/L (21-32) Anion Gap 12 mmol/L (5-15) Blood Urea Nitrogen 24 mg/dL (7-18) Creatinine 1.2 MG/DL (0.55-1.30) Estimat Glomerular Filtration Rate 45.9 mL/min (>60) Glucose Level 116 MG/DL (74-106) Calcium Level 9.1 MG/DL (8.5-10.1) Total Bilirubin 0.3 MG/DL (0.2-1.0) Aspartate Amino Transf (AST/SGOT) 15 U/L (15-37) Alanine Aminotransferase (ALT/SGPT) 32 U/L (12-78) Alkaline Phosphatase 76 U/L (46-116) Total Protein 8.4 G/DL (6.4-8.2) Albumin 3.8 G/DL (3.4-5.0) Globulin 4.6 g/dL Albumin/Globulin Ratio 0.8 (1.0-2.7) Lipase 132 U/L (73-393) CT/MRI/US Diagnostic Results CT/MRI/US Diagnostic Results : Imaging Test Ordered: CT A/P Impression No definite acute pathology in the abdomen or pelvis. Note that patient has an appendicolith in the proximal appendix and the more distal appendix is slightly distended. Correlate for any clinical findings of inflammation as early acute appendicitis can appear similar. Last Vital Signs Date Time Temp Pulse Resp B/P (MAP) Pulse Ox O2 Delivery O2 Flow Rate FiO2 09/11/18 23:10 97.7 71 18 108/54 100 Room Air Status: improved Disposition: ADMITTED INPATIENT Condition: Serious Referrals: [facility],REFERRING (PCP) Arnav Tay MD Sep 12, 2018 01:14
--- NOTE | 2018-09-12 01:58 | NUR ---
ED Nurse Note: Pt report given to Niles SEBASTIAN from [facility].
--- NOTE | 2018-09-12 02:17 | NUR ---
ED Nurse Note: pt transferred to [facility], all belongings sent w/ pt, vss, resp even and unlabored on RA, reports pain but states she doesn't need pain medication, pt advised to notify receiving RN Niles if pt has pain. pt verbalized understanding and agrees with plan.
--- NOTE | 2018-09-12 02:20 | NUR ---
NURSE NOTES: Received patient awake,alert,verbal,ambulatory,with stable vital signs.
[2018-09-12] MEDS: D5 1/2NS 1,000 ML IV SCH ×3 (02:30→18:35)
--- NOTE | 2018-09-12 07:07 | NUR ---
HAND-OFF: Report given to Gagandeep Stauffer RN.Endorsed also the standing order of Dr Hart. Patient slept comfortably without complaints until this time.
--- NOTE | 2018-09-12 07:25 | NUR ---
NURSE NOTES: Received patient in bed, asleep @ this time. Breathing is even and unlabored. IVF running. Call light iwthin reach, bed is in low position and locked. Will continue to monitor.
--- NOTE | 2018-09-12 08:10 | NUR ---
NURSE NOTES: Patient is awake, alert and oriented x4. Not in respiratory/cardiac distress. Patient is able to ambulate to restroom without pain @ this time. Will continue to monitor. Denies nausea/vomiting.Will continue to monitor.
--- NOTE | 2018-09-12 11:53 | Pre-Procedure Note/Attestation ---
Pre-Procedure Note/Attestation Complete Prior to Procedure Planned Procedure: not applicable Procedure Narrative: laparoscopic appendectomy possible open Indications for Procedure Pre-Operative Diagnosis: acute appendicitis Attestation I attest that I discussed the nature of the procedure; its benefits; risks and complications; and alternatives (and the risks and benefits of such alternatives ), prior to the procedure, with the patient (or the patient's legal jewelry sales representative). I attest that, if there was a reasonable possibility of needing a blood transfusion, the patient (or the patient's legal jewelry sales representative) was given the [facility] standardized written summary, pursuant to the [facility] Blood Safety Act ([place] Health and Safety Code # 1645, as amended). I attest that I re-evaluated the patient just prior to the surgery and that there has been no change in the patient's H&P, except as documented below: Primitivo Hart Sep 12, 2018 11:53
[2018-09-12 12:00] LABS: BASOPHILS % (AUTO) 0.4 % (0.0-2.0); HEMATOCRIT 33.7 % (37.0-47.0); LYMPHOCYTES % (AUTO) 18.3 % (20.0-45.0); MEAN CORPUSCULAR VOLUME 81 FL (80-99); MONOCYTES % (AUTO) 5.8 % (1.0-10.0); NEUTROPHILS % (AUTO) 74.5 % (45.0-75.0); PLATELET COUNT 209 K/UL (150-450); RED BLOOD COUNT 4.15 M/UL (4.20-5.40); RED CELL DISTRIBUTION WIDTH 14.2 % (11.6-14.8); WHITE BLOOD COUNT 8.8 K/UL (4.8-10.8)
--- NOTE | 2018-09-12 12:00 | History & Physical ---
History and Physical History & Physicial HP dictated # [id number] Mark Nguyen MD Sep 12, 2018 12:00
[2018-09-12] MEDS ORDERED: Bacitracin 50000 Units Vial ONE (12:28)
[2018-09-12] MEDS ORDERED: Bupivacaine w/Epi 0.5% 30ml Vial INJ ONE (12:28)
[2018-09-12] MEDS ORDERED: Zemuron 50mg/5ml Inj IV ONE (12:52)
[2018-09-12] MEDS: Piperacillin/Tazobactam 3.375 GM in D5W 110 ML IVPB SCH ×2 (12:54→21:52)
[2018-09-12] MEDS ORDERED: LR 1000ml ONE (13:00)
[2018-09-12] MEDS ORDERED: NS Irrig 1000ml ONE (13:00)
[2018-09-12] MEDS ORDERED: Sterile Water Irrig 1000ml IRRIG ONE (13:00)
[2018-09-12] MEDS ORDERED: fentaNYL 100 mcg/2 mL IV ONE (13:07)
--- NOTE | 2018-09-12 13:15 | NUR ---
NURSE NOTES: Patient is off the unit for the surgery in stable condition. V/S stable. Not in respiratory/cardiac distress. Patient took out her earrings and kept them in her bag and left her phone in the room. Patient refused to keep them in a safe. IV intact, no s/s of infiltration, pre-op check list done.
[2018-09-12] MEDS ORDERED: Cefepime HCl 2 GM in D5W 55 ML IV SCH (13:30)
[2018-09-12] MEDS ORDERED: NS Irrig 1000ml IRRIG ONE (13:40)
[2018-09-12] MEDS ORDERED: ePHEDrine 50mg/ml Inj ONE (14:01)
[2018-09-12] MEDS ORDERED: Neostigmine 1mg/ml 10ml Inj ONE (14:01)
[2018-09-12] MEDS ORDERED: Lidocaine 1% MPF 10mg/ml 5ml ONE (14:01)
[2018-09-12] MEDS ORDERED: Metoclopramide 10mg/2ml Inj ONE (14:01)
[2018-09-12] MEDS ORDERED: Glycopyrrolate 0.2mg/ml 1ml Vial ONE (14:01)
[2018-09-12] MEDS ORDERED: Propofol 200mg/20ml IV ONE (14:01)
--- NOTE | 2018-09-12 14:25 | Brief Operative Note ---
Immediate Post Operative Note Operative Note Pre-op Diagnosis: acute appendicitis Procedure: lap appy Post-op Diagnosis: same as pre-op Surgeon: gabriela Anesthesiologist: angelica Anesthesia: general Specimen: yes Complications: none Condition: stable Fluids: see records Estimated Blood Loss: minimal Drains: none Implant(s) used?: No Primitivo Hart Sep 12, 2018 14:25
[2018-09-12] MEDS ORDERED: Morphine Sulfate 2mg/ml Inj(IV/IM USE ONLY) IVP PRN ×2 (14:30)
[2018-09-12] MEDS ORDERED: Morphine Sulfate 4mg/ml Inj (IV USE ONLY) IVP PRN (14:30)
[2018-09-12] MEDS ORDERED: HYDROcodone/Acetamin 5/325 tab ORAL PRN (14:30)
[2018-09-12] MEDS ORDERED: Milk of Magnesia 30ml Ud ORAL PRN (14:30)
--- NOTE | 2018-09-12 14:32 | Immediate Post-Op Evaluation ---
Immediate Post-Op Evalulation Immediate Post-Op Evalulation Procedure: lap appy Date of Evaluation: Sep 12, 2018 Time of Evaluation: 14:32 IV Fluids: 500 Blood Products: 0 Blood Pressure Systolic: 130 Blood Pressure Diastolic: 53 Pulse Rate: 63 Respiratory Rate: 14 O2 Sat by Pulse Oximetry: 97 Temperature (Fahrenheit): 97.0 Pain Score (1-10): 0 Nausea: No Vomiting: No Complications none Patient Status: awake, reacts, patent Hydration Status: adequate Drug: zosyn Given Within 1 Hr of Incision: Yes Time Given: 13:00 Carole Cummins CRNA Sep 12, 2018 14:32
--- NOTE | 2018-09-12 14:32 | Anethesia Preoperative Eval ---
Anesthesia Pre-op PMH/ROS General Date of Evaluation: Sep 12, 2018 Time of Evaluation: 13:00 Anesthesiologist: ange ASA Score: ASA 2 Mallampati Score Class I : Soft palate, uvula, fauces, pillars visible Class II: Soft palate, uvula, fauces visible Class III: Soft palate, base of uvula visible Class IV: Only hard plate visible Mallampati Classification: Class II Surgeon: gabriela Diagnosis: appendicitis Surgical Procedure: lap appy Anesthesia History: none Family History: no anesthesia problems Allergies: Coded Allergies: No Known Allergies (Unverified , 12/15/16) Patient NPO?: Yes NPO Date: Sep 12, 2018 NPO Time: 0000 Past Medical History Cardiovascular: Reports: HTN, CAD Pulmonary: Denies: asthma, COPD, DAYAMI, other Gastrointestinal/Genitourinary: Reports: GERD; Denies: CRI, ESRD, other Neurologic/Psychiatric: Denies: dementia, CVA, depression/anxiety, TIA, other Endocrine: Reports: DM; Denies: hypothyroidism, steroids, other HEENT: Denies: cataract (L), cataract (R), glaucoma, KARUK (L), KARUK (R), other Hematology/Immune: Denies: anemia, DVT, bleeding disorder, other Musculoskeletal/Integumentary: Denies: OA, RA, DJD, DDD, edema, other Other: obesity PSxH Narrative: denies Anesthesia Pre-op Phys. Exam Physician Exam Last Vital Signs Date Time Temp Pulse Resp B/P (MAP) Pulse Ox O2 Delivery O2 Flow Rate FiO2 09/12/18 12:00 98.2 82 18 148/82 (104) 96 09/12/18 09:00 Room Air Constitutional: NAD Neurologic: CN 2-12 intact Cardiovascular: RRR Respiratory: CTA Gastrointestinal: S/NT/ND Airway Exam Mallampati Classification 2 Mallampati Score: Class II MO: full ROM: full Teeth: missing Dentures: no upper, no lower Anesthesia Pre-op A/P Labs Hematology Test 09/11/18 21:42 09/12/18 11:54 White Blood Count 13.3 K/UL (4.8-10.8) H 8.8 K/UL (4.8-10.8) Red Blood Count 4.09 M/UL (4.20-5.40) L 4.15 M/UL (4.20-5.40) L Hemoglobin 10.8 G/DL (12.0-16.0) L 11.0 G/DL (12.0-16.0) L Hematocrit 33.9 % (37.0-47.0) L 33.7 % (37.0-47.0) L Mean Corpuscular Volume 83 FL (80-99) 81 FL (80-99) Mean Corpuscular Hemoglobin 26.3 PG (27.0-31.0) L 26.5 PG (27.0-31.0) L Mean Corpuscular Hemoglobin Concent 31.7 G/DL (32.0-36.0) L 32.6 G/DL (32.0-36.0) Red Cell Distribution Width 13.9 % (11.6-14.8) 14.2 % (11.6-14.8) Platelet Count 231 K/UL (150-450) 209 K/UL (150-450) Mean Platelet Volume 7.1 FL (6.5-10.1) 6.8 FL (6.5-10.1) Neutrophils (%) (Auto) % (45.0-75.0) 74.5 % (45.0-75.0) Lymphocytes (%) (Auto) % (20.0-45.0) 18.3 % (20.0-45.0) L Monocytes (%) (Auto) % (1.0-10.0) 5.8 % (1.0-10.0) Eosinophils (%) (Auto) % (0.0-3.0) 1.0 % (0.0-3.0) Basophils (%) (Auto) % (0.0-2.0) 0.4 % (0.0-2.0) Chemistry Test 09/11/18 21:42 Sodium Level 139 MMOL/L (136-145) Potassium Level 4.3 MMOL/L (3.5-5.1) Chloride Level 102 MMOL/L (98-107) Carbon Dioxide Level 25 MMOL/L (21-32) Anion Gap 12 mmol/L (5-15) Blood Urea Nitrogen 24 mg/dL (7-18) H Creatinine 1.2 MG/DL (0.55-1.30) Estimat Glomerular Filtration Rate 45.9 mL/min (>60) Glucose Level 116 MG/DL (74-106) H Calcium Level 9.1 MG/DL (8.5-10.1) Total Bilirubin 0.3 MG/DL (0.2-1.0) Aspartate Amino Transf (AST/SGOT) 15 U/L (15-37) Alanine Aminotransferase (ALT/SGPT) 32 U/L (12-78) Alkaline Phosphatase 76 U/L (46-116) Total Protein 8.4 G/DL (6.4-8.2) H Albumin 3.8 G/DL (3.4-5.0) Globulin 4.6 g/dL Albumin/Globulin Ratio 0.8 (1.0-2.7) L Lipase 132 U/L (73-393) Studies Pre-op Studies: EKG - sr Risk Assessment & Plan Assessment: denies angina Plan: general Status Change Before Surgery: No Pre-Antibiotics Drug: zosyn Given Within 1 Hr of Incision: Yes Time Given: 13:00 Carloe Cummins CRNA Sep 12, 2018 14:32
--- NOTE | 2018-09-12 15:45 | NUR ---
NURSE NOTES: Report given to Swapna in 3E. Dr. Hart agreed to transfer patient to 3E. All belongings accounted for. 2 RN's and patient checked the belongings bedside. Patient gave $85.00 to her grand children who visited her today. Patient's cell phone and [employer] mill with her and 1 pair of earrings were sent home.
[2018-09-12] MEDS: NovoLOG Insulin Flexpen SUBQ SCH ×2 (16:30→21:53)
--- NOTE | 2018-09-12 17:30 | History and Physical Report ---
DATE OF ADMISSION: 09/12/2018 CHIEF COMPLAINT: Abdominal pain. HISTORY OF PRESENT ILLNESS: This is a pleasant 58-year-old female, who started having abdominal pain in the right lower quadrant the day prior to presentation. There was no nausea or vomiting. There are no fevers. The patient was seen in the emergency room. A CT scan showed appendicolith and dilated appendix, however, there is a question if the patient has true appendicitis. The patient was seen by Dr. Hart. Overnight, he wanted to observe the patient off antibiotics and also pain medications to see if the patient improves on her own. This morning, when I saw the patient, she still has some tenderness. PAST MEDICAL HISTORY: Includes history of diabetes and hypertension and history of hyperlipidemia. MEDICATIONS: Reviewed in the EMR. SOCIAL HISTORY: No history of smoking or alcohol abuse. The patient lives at home with her . She works as a product management internship. ALLERGIES: No known drug allergies. REVIEW OF SYSTEMS: As above. PHYSICAL EXAMINATION: GENERAL: The patient is a 58-year-old female, in no acute distress. VITAL SIGNS: Blood pressure is 116/62, pulse 92, respirations 20, and temperature 97.7 HEENT: [place] conjunctivae. Anicteric sclerae. NECK: Supple. LUNGS: Clear to auscultation. HEART: S1, S2 without murmurs or rubs. ABDOMEN: Soft. There is tenderness in left lower quadrant. LABORATORY FINDINGS: [place] [address], hematocrit is 33.9, hemoglobin is 10.8, platelets 231,000. Chemistry panel shows serum sodium 139, potassium 4.3, chloride 102, BUN is 24, creatinine 1.2, and glucose is 116. Albumin is 3.8 AND lipase is 132. UA shows 3+ protein and 5 to 10 wbc's per high-power field. ASSESSMENT: This is a 58-year-old female with history of diabetes, hypertension, and hyperlipidemia who presents with right lower quadrant abdominal pain and possibility of appendicitis. She has also urinary tract infection. PLAN: The patient will be hydrated. She will be on antibiotics at this time. I discussed the case with Dr. Hart who will take the patient to OR today since the patient continues to have abdominal tenderness. Pain medication will be prescribed. The patient will be on sliding scale insulin for diabetes. Mark Nguyen M.D. DR: EMILY JOB#: [id number] CC:
--- NOTE | 2018-09-12 17:54 | NUR ---
NURSE NOTES: Patient is sitting in bed, aaox4. [place] 10 given for pain of 8/10 anterior abdomen. Surgical dressing c/d/i. No n/v. Bed low, call light within reach. Addendum: 09/12/18 at 2305 by RUSSELL ANDERSON RN room air
--- NOTE | 2018-09-12 18:02 | NUR ---
CASE MANAGEMENT: INITIAL REVIEW 58 YO F PRESENTED TO OUR ED FROM HOME CC: ABD PAIN PMHx: DM. HTN. SI:APPENDICITIS. T 98.8 HR 84 RR 26 B/P 117/60 SATS 96% ON RA WBC 13.3 BUN 24 GLU 116 IS: ZOFRAN IV X1 PEPCID IV X1 MORPHINE IV X1 NS BOLUS X1 REGLAN IV X1 PATIENT ADMITTED TO MED/SURG 09/12/2018 @ 0011 DCP: PATIENT TO BE DISCHARGED TO HOME ONCE MEDICALLY CLEARED. PLAN OF CARE: SURGICAL CONSULT >>> LAP APPY
[2018-09-12] MEDS: Docusate 100mg cap ORAL SCH (18:32)
--- NOTE | 2018-09-12 19:19 | NUR ---
HAND-OFF: Report given to JAZ Cantor.
--- NOTE | 2018-09-12 19:31 | NUR ---
NURSE NOTES: Received report from Alden Barcenas.
[2018-09-12] MEDS: HYDROcodone/Acetamin 10/325 tab ORAL PRN (20:08)
--- NOTE | 2018-09-12 20:15 | Operative Note - Dictated ---
DATE OF OPERATION: 09/12/2018 PREOPERATIVE DIAGNOSIS: Acute appendicitis. POSTOPERATIVE DIAGNOSIS: Acute appendicitis. OPERATION PERFORMED: 1. Laparoscopic appendectomy. 2. Extensive intra-abdominal lysis of adhesions. 3. Modifier 22 difficult procedure. ATTENDING SURGEON: Primitivo Hart M.D. POLYSOMNOGRAPHY TECHNICIAN: None. ANESTHESIOLOGIST: Carole Cummins CRNA. ANESTHESIA: General FLIGHT ATTENDANT. ESTIMATED BLOOD LOSS: Minimal. IV FLUIDS: Please see anesthesia records. COMPLICATIONS: None. DRAINS: None. SPECIMENS: Appendix sent to pathology for review. WOUND CLASSIFICATION: Class 3. ANTIBIOTICS: The patient was given IV Zosyn one hour prior to cut time. INDICATIONS FOR PROCEDURE: This is a 58-year-old female who presented to the emergency room at [facility] complaining of acutely worsening abdominal pain with radiation to right lower quadrant over the past 24 hours. As pain progressed, she came for evaluation at which time was noted to have a leukocytosis of 13,000. A CT scan with appendicolith and dilatation at the tip of the appendix. On examination, she had right lower quadrant abdominal tenderness and umbilical tenderness. There was question of equivocal appendicitis and she was admitted for evaluation at which time the pain did not improve and her symptoms became more localized to the right lower quadrant. Therefore, surgery was indicated and recommended. Risks, benefits, and alternatives discussed with the patient and her family in detail who expressed understanding and consented for laparoscopic, possible open appendectomy. OPERATIVE NOTE: The patient was taken to the operating room and placed on the operating table in supine position with left arm tucked. All bony prominences well padded. SCDs were placed. Preoperative time-out was taken, identifying the patient, procedure, operative staff, and surgical staff. No Love catheter was inserted given the patient voided prior to entering the operating room. General anesthesia was induced and the patient was intubated. A local anesthetic was infiltrated throughout the procedure for the patient's comfort, all port sites, and skin incisions. An infraumbilical incision was made using a fresh #11 scalpel and carried down to the fascia, which was elevated and incised. Entry to the abdomen was obtained using open Quincy technique. When manual palpation was performed, there was significant adhesions noted around the area of the umbilicus. These adhesions were slowly slipped away and once there was a opening, the Quincy trocar was inserted and the abdomen insufflated to 12 to 15 mmHg. The patient tolerated the insufflation well. Laparoscope was inserted and the abdomen was inspected. Within the pelvis, right lower quadrant, and left lower quadrant, there was a significant amount of omental adhesions to the anterior abdominal wall from the patient's prior surgery. The right upper quadrant and left upper quadrant otherwise normal without adhesions. The liver had blunt edges, but did not look significantly diseased. Portion of the stomach and small bowel could be identified and were otherwise healthy. In evaluating how to proceed with the remainder of the procedure, it was not possible for me to place my standard left lower quadrant 12 mm port and my 5 mm suprapubic port and therefore I had to begin with placing a 12 mm right upper quadrant port. Once this port was placed, the next half-hour was spent with laparoscopic zane performing lysis adhesions around the right lower quadrant, so the cecum could be identified. Once this was completed, the right pubic region was cleared as well and a secondary 5 mm trocar was placed in the right suprapubic region under direct visualization without complication. Laparoscopic graspers were used and the cecum was identified. Adhesions around the cecum and the small bowel, terminal ileum, and appendix were gently dissected out over the adhesions until the appendix was finally identified in the right lower quadrant underneath multiple adhesions. The tip of the appendix was noted. The appendix was grasped and elevated and the surrounding inflammatory tissues were dissected through until the entirety of the appendix and the base were identified. The base of the appendix was identified and a window was made at the base of the appendix. Following this, a laparoscopic linear stapler was used and healthy base of the appendix was divided. The remaining mesoappendix was slowly dissected out and the mesoappendix was divided using a laparoscopic linear stapler for vascular load. Once this was complete, the appendix was placed in endoscopic retrieval bag and removed from the abdomen using the umbilical port site under direct visualization to ensure no trauma. The abdomen was inspected and hemostasis was identified. The mesoappendix and appendiceal base staple line were inspected and noted to be hemostatic and viable. At this time, we began the conclusion of our procedure. Secondary trocars removed under direct visualization. The umbilical trocar site removed and the abdomen desufflated. The umbilical trocar site fascia was closed using a [id number] #0 Vicryl suture followed by reapproximated all skin incisions using 4-0 Monocryl subcuticular interrupted sutures. Steri-Strips were applied. The patient tolerated procedure well, was extubated and taken to postanesthetic care unit in stable condition. Please note, modifier 22 for difficult procedure requiring extensive lysis of adhesions and significant more time than a standard appendectomy. Primitivo Hart M.D. DR: Mary JOB#: [id number] CC: JES
--- NOTE | 2018-09-12 21:54 | NUR ---
NURSE NOTES: Patient tolerated full liquid diet. Says she is hungry and wants to eat a salad. Diet advanced.
[2018-09-13] VITALS: BP 138/61
[2018-09-13] MEDS: HYDROcodone/Acetamin 10/325 tab ORAL PRN ×2 (00:41→08:09)
[2018-09-13 04:00] VITALS: BP 124/61
[2018-09-13 06:33] LABS: BASOPHILS % (AUTO) 0.4 % (0.0-2.0); EOSINOPHILS % (AUTO) 1.5 % (0.0-3.0); HEMATOCRIT 28.5 % (37.0-47.0); HEMOGLOBIN 9.3 G/DL (12.0-16.0); LYMPHOCYTES % (AUTO) 18.8 % (20.0-45.0); MEAN CORPUSCULAR VOLUME 82 FL (80-99); MONOCYTES % (AUTO) 6.8 % (1.0-10.0); NEUTROPHILS % (AUTO) 72.7 % (45.0-75.0); PLATELET COUNT 188 K/UL (150-450); RED BLOOD COUNT 3.47 M/UL (4.20-5.40); RED CELL DISTRIBUTION WIDTH 14.3 % (11.6-14.8); WHITE BLOOD COUNT 8.7 K/UL (4.8-10.8)
[2018-09-13] MEDS: Piperacillin/Tazobactam 3.375 GM in D5W 110 ML IVPB SCH ×2 (06:37→14:00)
[2018-09-13] MEDS: NovoLOG Insulin Flexpen SUBQ SCH ×2 (06:40→12:25)
[2018-09-13] MEDS: D5 1/2NS 1,000 ML IV SCH (06:42)
[2018-09-13 06:58] LABS: ANION GAP 9 mmol/L (5-15); BLOOD UREA NITROGEN 14 mg/dL (7-18); CALCIUM 8.4 MG/DL (8.5-10.1); CARBON DIOXIDE 26 MMOL/L (21-32); CHLORIDE 105 MMOL/L (98-107); CHOLESTEROL 97 MG/DL (< 200); HDL CHOLESTEROL 52 MG/DL (40-60); POTASSIUM 3.8 MMOL/L (3.5-5.1); SODIUM 140 MMOL/L (136-145); TRIGLYCERIDES 55 MG/DL (30-150)
--- NOTE | 2018-09-13 07:15 | 48 Hour Post Anesthesia Eval ---
Post Anesthesia Evaluation Procedure: lap appy Date of Evaluation: Sep 13, 2018 Time of Evaluation: 07:14 Blood Pressure Systolic: 124 0: 61 Pulse Rate: 71 Respiratory Rate: 14 O2 Sat by Pulse Oximetry: 98 Airway: patent Nausea: No Vomiting: No Hydration Status: adequate Cardiopulmonary Status: stable Mental Status/LOC: patient returned to baseline Post-Anesthesia Complications: none Follow-up care needed: N/A Carole Cummins CRNA Sep 13, 2018 07:15
--- NOTE | 2018-09-13 07:56 | NUR ---
HAND-OFF: Report given to JAZ Ballard. Patient stable.
[2018-09-13 08:00] VITALS: BP 137/62
[2018-09-13] MEDS: Docusate 100mg cap ORAL SCH (08:08)
--- NOTE | 2018-09-13 08:19 | NUR ---
NURSE NOTES: Received report from Juanita SEBASTIAN. Patient is awake alert and oriented x4, reporting pain rated 10/10 in surgical site. Medicated per order and will reassess. IV antibiotic running per order, IV intact and asymptomatic. Patient is sitting at bedside. Call light in reach. Will continue to monitor.
--- NOTE | 2018-09-13 11:09 | NUR ---
CASE MANAGEMENT:REVIEW 09/13/18 SI:POD #1 S/P LAPAROSCOPIC APPENDECTOMY 98.2 81 17 137/62 93% ON RA H/H-9.3/28.5 IS: IV ZOSYN Q8HRS IV MORPHINE Q4HRS PRN : MED/SURG STATUS 3 EAST DCP: HOME PLAN: ADVANCE DIET
[2018-09-13 12:00] VITALS: BP 138/73
--- NOTE | 2018-09-13 13:16 | General Progress Note ---
Assessment/Plan Problem List: (1) Appendicitis ICD Codes: K37 - Unspecified appendicitis SNOMED: 65047703 Qualifiers: Qualified Codes: K37 - Unspecified appendicitis (2) Abdominal pain ICD Codes: R10.9 - Unspecified abdominal pain SNOMED: 99549797 Qualifiers: Qualified Codes: R10.31 - Right lower quadrant pain (3) Diabetes ICD Codes: E11.9 - Type 2 diabetes mellitus without complications SNOMED: 08422870 Assessment/Plan Discussed the case with Dr. Hailey pressley To DC patient Subjective Allergies: Coded Allergies: No Known Allergies (Unverified , 12/15/16) Subjective Patient feels better Objective Last 24 Hour Vital Signs Date Time Temp Pulse Resp B/P (MAP) Pulse Ox O2 Delivery O2 Flow Rate FiO2 09/13/18 09:00 Room Air 09/13/18 08:39 98.2 09/13/18 08:00 98.2 81 17 137/62 (87) 93 09/13/18 07:15 71 14 98 09/13/18 04:00 98.6 71 18 124/61 (82) 96 09/13/18 00:00 97.7 74 20 138/61 (86) 93 09/12/18 21:00 Room Air 09/12/18 20:00 99.1 88 20 120/64 (82) 95 09/12/18 15:10 97.2 75 16 139/48 97 Nasal Cannula 3 09/12/18 15:00 70 16 129/51 97 Nasal Cannula 3 09/12/18 14:45 69 16 138/53 97 Nasal Cannula 3 09/12/18 14:32 63 14 97 09/12/18 14:30 63 16 131/64 97 Simple Mask 8 09/12/18 14:25 65 16 130/53 97 Simple Mask 8 09/12/18 14:20 97.0 56 16 138/54 97 Simple Mask 8 Intake and Output 09/12/18 09/13/18 19:00 07:00 Intake Total 1580 ml Balance 1580 ml Intake Oral 480 ml IV Total 1100 ml # Voids 2 2 Laboratory Tests 09/13/18 05:00: White Blood Count 8.7, Red Blood Count 3.47L, Hemoglobin 9.3L, Hematocrit 28.5L , Mean Corpuscular Volume 82, Mean Corpuscular Hemoglobin 26.8L, Mean Corpuscular Hemoglobin Concent 32.8, Red Cell Distribution Width 14.3, Platelet Count 188, Mean Platelet Volume 8.1, Neutrophils (%) (Auto) 72.7, Lymphocytes (% ) (Auto) 18.8L, Monocytes (%) (Auto) 6.8, Eosinophils (%) (Auto) 1.5, Basophils (%) (Auto) 0.4, Differential Total Cells Counted 100, Neutrophils % (Manual) 78H , Lymphocytes % (Manual) 17L, Monocytes % (Manual) 5, Eosinophils % (Manual) 0, Basophils % (Manual) 0, Band Neutrophils 0, Platelet Estimate Adequate, Platelet Morphology Normal, Microcytosis 1+, Erythrocyte Sedimentation Rate 76H , Prothrombin Time 10.6, Prothromb Time International Ratio 1.0, Activated Partial Thromboplast Time 30, Sodium Level 140, Potassium Level 3.8, Chloride Level 105, Carbon Dioxide Level 26, Anion Gap 9, Blood Urea Nitrogen 14, Creatinine 1.0, Estimat Glomerular Filtration Rate 56.5, Glucose Level 121H, Hemoglobin A1c 8.4H, Calcium Level 8.4L, C-Reactive Protein, Quantitative 11.6H , Triglycerides Level 55, Cholesterol Level 97, LDL Cholesterol 40, HDL Cholesterol 52, Cholesterol/HDL Ratio 1.9L Height (Feet): 5 Height (Inches): 2.00 Weight (Pounds): 215 Cardiovascular: normal rate Respiratory/Chest: lungs clear Abdomen: tender Mark Nguyen MD Sep 13, 2018 13:16
[2018-09-13] MEDS ORDERED: COLACE100 MG ORAL (13:38)
[2018-09-13] MEDS ORDERED: ACETAMINOPHEN-1 EAC1 ORAL (13:39)
--- NOTE | 2018-09-13 13:59 | General Progress Note ---
Progress Note Progress Note surgery doing great post op pain controlled tolerating diet no complaints wounds c/d/i d/c home rx written f/u given care instructions given Primitivo Hart Sep 13, 2018 13:59
--- NOTE | 2018-09-13 15:13 | NUR ---
NURSE NOTES: Patient discharged. No acute distress on discharge. Patient given discharge instructions, reviewed discharge education handouts with patient, patient reports understanding of all provided education. Patient given Rx and medication education, patient reports understanding of Rx education. All belongings reviewed and given to patient. IV removed intact. Patient escorted off unit via wheelchair by ACID PAINTER, accompanied by patient's nephew who will drive patient home.
--- NOTE | 2018-09-15 10:21 | Discharge Summary ---
Discharge Summary Discharge Summary _ DATE OF ADMISSION: 09/12/2018 DATE OF DISCHARGE: 09/13/2018 DISCHARGED BY: Dr. Nguyen REASON FOR ADMISSION: 58 years old female with past medical history of hypertension, hyperlipidemia, diabetes mellitus, presented to emergency room for evaluation due to abdominal pain in the right lower quadrant for 1 day. She denied nausea and vomiting. She denied fever and chills. Patient was seen and examined in the emergency department CT scan of abdomen and pelvis revealed no definite acute pathology in the abdomen and pelvis. Appendicolith in the proximal appendix and the more distal appendix but slightly distended. Laboratory workup revealed leukocytosis 13.3 WBC 13.3, hemoglobin 10.8, hematocrit 33.9. BUN 24 creatinine 1.2 otherwise stable electrolytes albumin 3.8 urinalysis revealed pyuria and few bacteria. Vital signs were stable. Patient admitted with the appendicitis and possible UTI. CONSULTANTS: surgery Dr. Hart Follow up with primary care provider in one week. After trial of diet. Bowel regimen instituted. Blood sugar was managed with sliding scale of insulin remained stable. Patient clinically stabilized and was ready for discharge home HOSPITAL COURSE: Patient admitted to medical surgical floor. Patient started on the IV fluids and empiric antibiotic. Surgeon seen and evaluated patient. CT results were not completely consistent with appendicitis, possible early appendicitis , given duration. Findings were discussed with the patient. Patient continued to have abdominal pain and tenderness on examination. Patient subsequently undergone laparoscopic appendectomy with extensive intra- abdominal lysis of adhesions. Patient received preoperative antibiotic. Course of recovery was uneventful. Pain management was addressed. Bowel regimen instituted. Patient slowly started on liquid diet and was advanced as tolerated. Patient was able to tolerate diet. Blood sugar was managed with sliding scale of insulin as needed, remained stable. Blood pressure was closely monitored, remained stable. Laparoscopic incisions clean, dry and intact. Patient ambulated in the hallway. Patient voided freely. Pain was controlled. Surgeon cleared patient for discharge. Prescription provided. Follow-up with surgeon as outpatient as instructed by surgeon. Due to rapid and unexpected improvement in patient condition, patient was discharged in 1 day. FINAL DIAGNOSES: Appendicitis Status post laparoscopic appendectomy Diabetes mellitus Abdominal pain likely due to appendicitis DISCHARGE MEDICATIONS: See Medication Reconciliation list. DISCHARGE INSTRUCTIONS: Patient was discharged home . Follow-up as outpatient with surgeon as advised by surgeon. I have been assigned to dictate discharge summary for this account. I was not involved in the patient's management. Mariah James FOSTER WINDER Sep 15, 2018 10:21
--- NOTE | 2018-09-15 12:03 | NUR ---
*-* INSURANCE *-* ALL CLINICALS HAVE BEEN FAXED TO: ANT Riddle:[phone]
== END 2018-09-13 15:07 | disposition home or self-care (01) | DRG 224 ==
LOC: EMR 21:45 → 4E 09-12 00:11 → EDBEDREQ 09-12 01:44 → 3E 09-12 15:14
PROC: 0DNW4ZZ Release Peritoneum, Percutaneous Endoscopic Approach (ICD-10-PCS; 2018-09-12)
PROC: 0DTJ4ZZ Resection of Appendix, Percutaneous Endoscopic Approach (ICD-10-PCS; principal; 2018-09-12 13:00)
DX: K35.80 Unspecified acute appendicitis (principal); E11.9 Type 2 diabetes mellitus without complications; I10 Essential (primary) hypertension; E78.5 Hyperlipidemia, unspecified; N39.0 Urinary tract infection, site not specified; K66.0 Peritoneal adhesions (postprocedural) (postinfection)
CPT/HCPCS: 36415; 74177; 80048; 80053; 80061; 81003; 82962; 83036; 83690; 85007; 85025; 85610; 85651; 85730; 86140; 94003; 94150; 96361; 96374; 96375; 99285; J1815; J2405; J2710; J2765

== ENCOUNTER 2018-09-20 02:26 | Inpatient (IN) | payer MEDICAID ==
[~2018-09-20] VITALS: Ht 160 cm; Wt 95.3 kg
[~2018-09-20 02:26] MED LIST changes: +ACETAMINOPHEN-1 EAC1 ORAL; +ASPIR 8181 MG ORAL; +BENAZEPRIL HCL20 MG ORAL; +COLACE100 MG ORAL; +GLUCOTROL XL10 MG ORAL; +METFORMIN HCL1000 M1 ORAL
[2018-09-20] MEDS ORDERED: Morphine Sulfate 4mg/ml Inj (IV USE ONLY) IVP ONE (02:45)
[2018-09-20] MEDS ORDERED: Isovue-300 100ml vial INJ PRN (02:45)
[2018-09-20 02:50] VITALS: BP 155/79
--- NOTE | 2018-09-20 02:50 | NUR ---
ER Nurse Note: Pt came from home c/o abd pain 10/10 throbbing and "contraction like" pain that radiates to back. Pt stated the pain got worse in the morning after she defecated. Pt states she had an appendectomy last week and had abd pain post surgery. On assessment, pt has three surgical incision in the mid to lower abd; with gauze and transparent dressing. Pt a&ox4, VSS, pt moaning, crying. ERMD at pt side; will continue to monitor.
[2018-09-20 03:09] LABS: BASOPHILS % (AUTO) 1.2 % (0.0-2.0); EOSINOPHILS % (AUTO) 2.3 % (0.0-3.0); HEMATOCRIT 33.2 % (37.0-47.0); HEMOGLOBIN 10.9 G/DL (12.0-16.0); LYMPHOCYTES % (AUTO) 14.7 % (20.0-45.0); MEAN CORPUSCULAR VOLUME 81 FL (80-99); MONOCYTES % (AUTO) 7.3 % (1.0-10.0); NEUTROPHILS % (AUTO) 74.6 % (45.0-75.0); PLATELET COUNT 246 K/UL (150-450); RED BLOOD COUNT 4.11 M/UL (4.20-5.40); RED CELL DISTRIBUTION WIDTH 13.8 % (11.6-14.8); WHITE BLOOD COUNT 8.2 K/UL (4.8-10.8)
[2018-09-20 03:18] LABS: ANION GAP 9 mmol/L (5-15); BLOOD UREA NITROGEN 24 mg/dL (7-18); CALCIUM 9.2 MG/DL (8.5-10.1); CARBON DIOXIDE 28 MMOL/L (21-32); CHLORIDE 102 MMOL/L (98-107); POTASSIUM 4.4 MMOL/L (3.5-5.1); SODIUM 139 MMOL/L (136-145)
[2018-09-20 03:22] LABS: ALANINE AMINOTRANSFERASE 28 U/L (12-78); ALBUMIN 3.4 G/DL (3.4-5.0); ALBUMIN/GLOBULIN RATIO 0.7 (1.0-2.7); ALKALINE PHOSPHATASE 73 U/L (46-116); ASPARTATE AMINO TRANSFERASE 15 U/L (15-37); BILIRUBIN,TOTAL 0.2 MG/DL (0.2-1.0)
[2018-09-20 03:39] LABS: APPEARANCE,URINE CLEAR; BILIRUBIN, URINE NEGATIVE (NEGATIVE); COLOR,URINE PALE YELLOW; GLUCOSE, URINE (UA) NEGATIVE (NEGATIVE); KETONES,URINE NEGATIVE (NEGATIVE); LEUKOCYTE ESTERASE ,URINE 1+ (NEGATIVE); NITRITE,URINE NEGATIVE (NEGATIVE); PH,URINE 7 (4.5-8.0); PROTEIN,URINE NEGATIVE (NEGATIVE); UROBILINOGEN,URINE NORMAL MG/DL (0.0-1.0)
--- NOTE | 2018-09-20 03:42 | Emergency Room Report ---
History of Present Illness General Chief Complaint: Abdominal Pain Source: Patient Present Illness HPI Patient presents with complaints of epigastric abdominal pain Reports that she is the restroom and had bowel movement this evening Denies any chest pain or shortness of breath Denies any back or flank pain is mainly epigastric 10 out of 10 Reports that this is different than her recent pain Patient had appendectomy laparoscopic 7 days ago at this facility And the report patient also had significant adhesions Allergies: Coded Allergies: No Known Allergies (Unverified , 12/15/16) Patient History Past Medical History: see triage record Pertinent Family History: none Now: No Reviewed Nursing Documentation: PMH: Agreed; PSxH: Agreed Nursing Documentation-PMH Past Medical History: No History, Except For Hx Hypertension: Yes Hx Diabetes: Yes Review of Systems All Other Systems: negative except mentioned in HPI Physical Exam Vital Signs Date Time Temp Pulse Resp B/P (MAP) Pulse Ox O2 Delivery O2 Flow Rate FiO2 09/20/18 02:32 98.8 70 25 155/79 95 Room Air Sp02 EP Interpretation: reviewed, normal General Appearance: mild distress - In pain Head: normocephalic, atraumatic Eyes: bilateral eye PERRL, bilateral eye EOMI ENT: hearing grossly normal, normal pharynx, TMs + canals normal, uvula midline Neck: full range of motion, supple, no meningismus, no bony tend Respiratory: lungs clear, normal breath sounds, no rhonchi, no respiratory distress, no retraction, no accessory muscle use Cardiovascular #1: normal peripheral pulses, regular rate, rhythm, no edema, no gallop, no JVD, no murmur Gastrointestinal: normal bowel sounds, soft, no mass, no organomegaly, non- distended, no guarding, no hernia, no pulsatile mass, no rebound, tenderness - Mainly epigastric Genitourinary: no CVA tenderness Musculoskeletal: normal inspection Neurologic: oriented x3, responsive, mold making supervisor III-XII nml as tested, motor strength/ tone normal, sensory intact Psychiatric: mood/affect normal Skin: normal color, no rash, warm/dry, palpation normal Lymphatic: normal inspection, no adenopathy Medical Decision Making Diagnostic Impression: Primary Impression: Abdominal pain Additional Impression: Ileus ER Course With the patient's history and examination, multiple differentials considered, including but not limited to , ectopic , ovarian torsion, gastritis, cholecystitis, pancreatitis, appendicitis Given the patient's recent procedures possible bowel obstruction and versus ileus also considered Patient's blood work is appropriate CT imaging does show some findings consistent with ileus patient admitted for further surgical consultation and reevaluation Labs Test 09/20/18 02:50 09/20/18 03:33 White Blood Count 8.2 K/UL (4.8-10.8) Red Blood Count 4.11 M/UL (4.20-5.40) Hemoglobin 10.9 G/DL (12.0-16.0) Hematocrit 33.2 % (37.0-47.0) Mean Corpuscular Volume 81 FL (80-99) Mean Corpuscular Hemoglobin 26.5 PG (27.0-31.0) Mean Corpuscular Hemoglobin Concent 32.8 G/DL (32.0-36.0) Red Cell Distribution Width 13.8 % (11.6-14.8) Platelet Count 246 K/UL (150-450) Mean Platelet Volume 8.0 FL (6.5-10.1) Neutrophils (%) (Auto) 74.6 % (45.0-75.0) Lymphocytes (%) (Auto) 14.7 % (20.0-45.0) Monocytes (%) (Auto) 7.3 % (1.0-10.0) Eosinophils (%) (Auto) 2.3 % (0.0-3.0) Basophils (%) (Auto) 1.2 % (0.0-2.0) Sodium Level 139 MMOL/L (136-145) Potassium Level 4.4 MMOL/L (3.5-5.1) Chloride Level 102 MMOL/L (98-107) Carbon Dioxide Level 28 MMOL/L (21-32) Anion Gap 9 mmol/L (5-15) Blood Urea Nitrogen 24 mg/dL (7-18) Creatinine 1.0 MG/DL (0.55-1.30) Estimat Glomerular Filtration Rate 56.5 mL/min (>60) Glucose Level 166 MG/DL (74-106) Calcium Level 9.2 MG/DL (8.5-10.1) Total Bilirubin 0.2 MG/DL (0.2-1.0) Aspartate Amino Transf (AST/SGOT) 15 U/L (15-37) Alanine Aminotransferase (ALT/SGPT) 28 U/L (12-78) Alkaline Phosphatase 73 U/L (46-116) Total Protein 8.3 G/DL (6.4-8.2) Albumin 3.4 G/DL (3.4-5.0) Globulin 4.9 g/dL Albumin/Globulin Ratio 0.7 (1.0-2.7) Lipase 148 U/L (73-393) Urine Color Pale yellow Urine Appearance Clear Urine pH 7 (4.5-8.0) Urine Specific [place] 1.010 (1.005-1.035) Urine Protein Negative (NEGATIVE) Urine Glucose (UA) Negative (NEGATIVE) Urine Ketones Negative (NEGATIVE) Urine Blood Negative (NEGATIVE) Urine Nitrite Negative (NEGATIVE) Urine Bilirubin Negative (NEGATIVE) Urine Urobilinogen Normal MG/DL (0.0-1.0) Urine Leukocyte Esterase 1+ (NEGATIVE) Urine RBC 0-2 /HPF (0 - 2) Urine WBC 2-4 /HPF (0 - 2) Urine Squamous Epithelial Cells Few /LPF (NONE/OCC) Urine Bacteria Few /HPF (NONE) Rhythm Strip Diag. Results EP Interpretation: yes Rate: 60 Rhythm: NSR, no PVC's, no ectopy CT/MRI/US Diagnostic Results CT/MRI/US Diagnostic Results : Impression CT abdomen pelvis Impression: Interim appendectomy Mild dilatation distal ileum with evidence of stasis of contents in mild wall thickening. Suspect on the basis of postoperative ileus. Early/partial small bowel obstruction at the level of the terminal ileum also possible but deemed less likely No evidence of significant postoperative complications otherwise Incidental findings as noted, including accessory splenule, prior hysterectomy, mild degenerative lumbar spondylosis This agrees with the preliminary interpretation provided overnight by [facility] teleradiology service. Last Vital Signs Date Time Temp Pulse Resp B/P (MAP) Pulse Ox O2 Delivery O2 Flow Rate FiO2 09/20/18 02:50 70 25 Room Air 09/20/18 02:50 98.8 155/79 99 Status: improved Disposition: ADMITTED INPATIENT Condition: Serious Referrals: [facility],REFERRING (PCP) Demetrice Jamil DO Sep 20, 2018 03:42
--- NOTE | 2018-09-20 03:58 | NUR ---
ER Nurse Note: Pt awaiting CT of abd. Left unit.
--- NOTE | 2018-09-20 04:36 | NUR ---
ER Nurse Note: Pt back from radiology; awaiting results and confirmation for transfer from [facility]. All safety measures met; will continue to montior.
--- NOTE | 2018-09-20 04:47 | NUR ---
ER Nurse Note: Report given to JAZ Munoz in [place] for continuty of care. Pt a&ox4, VSS, no signs of distress. Pt left with all belongings.
[2018-09-20 04:57] VITALS: BP 117/55
[2018-09-20 05:03] VITALS: BP 122/66
--- NOTE | 2018-09-20 05:16 | NUR ---
NURSE NOTES: RECEIVED PATIENT FROM ER, GOT REPORT FROM JAZ SILVA. PATIENT IN BED, AOX4. IV IN PLACE, PATENT. NO COMPLAINTS OF PAIN AT THIS TIME, PER PATIENT MORPHINE TOOK AWAY THE PAIN. NO S/S RESPIRATORY DISTRESS NOTED. REVIEWED PATIENT BELONGINGS, PATIENT REFUSED TO PUT CRESPO AND VALUABLES IN THE SAFE, PATIENT SIGNED BELONGINGS LIST. SKIN ASSESSMENT DONE, NO PRESSURE ULCERS OR OPEN WOUNDS NOTED. NOTED TO HAVE 3 SURGICAL SITES IN THE MID-ABDOMEN DRESSED WITH GAUZE AND TEGADERM. BED IN LOWEST POSITION, CALL LIGHT WITHIN REACH. WILL CONTINUE TO MONITOR.
--- NOTE | 2018-09-20 05:17 | NUR ---
NURSE NOTES: LEFT MESSAGE FOR DR. ROMANO FOR ADMISSION ORDERS, AWAITING RESPONSE.
--- NOTE | 2018-09-20 05:37 | NUR ---
NURSE NOTES: PATIENT BROUGHT MEDICATION BOTTLES - TYLENOL #3 AND STOOL SOFTENER. PUT IN PHARMACY BAG AND WILL BE BROUGHT DOWN. CHARGE NURSE AWARE.
[2018-09-20] MEDS ORDERED: Morphine Sulfate 4mg/ml Inj (IV USE ONLY) IVP PRN (06:30)
[2018-09-20] MEDS ORDERED: D5 1/2NS 1,000 ML IV SCH (06:30)
--- NOTE | 2018-09-20 07:30 | NUR ---
HAND-OFF: Report given to MARIA DEL CARMEN CERVANTES RN. Addendum: 09/20/18 at 0737 by CESAR ALICEA RN RN ENDORSED TO AM NURSE TO FOLLOW UP REGARDING CODE STATUS AND THAT PER DR. Tim ROMANO HE WOULD PUT IN REST OF ADMISSION ORDERS "LATER".
--- NOTE | 2018-09-20 07:30 | NUR ---
NURSE NOTES: Patient is in bed awake and able to verbalize needs. Patient is stable and complains of severe pain, will administer pain medication as ordered. Patient encouraged to use call light for assistance, verbalized understanding. Patient is in good spirits with call light within reach. Will continue to monitor.
[2018-09-20 08:00] VITALS: BP 127/46
--- NOTE | 2018-09-20 09:05 | Diagnostic Imaging Report ---
Clinical Indication: Abdominal pain for one week Technique: No oral contrast utilized, per emergency room physician request IV administration nonionic contrast. Venous phase spiral acquisition obtained through the abdomen and pelvis. Multiplanar reconstructions were generated. Total dose length product 986.01 mGycm. CTDIvol(s) 19.51 mGy. Dose reduction achieved using automated exposure control. Note that per the technologist, IV line leaked, resulting in delivery only minimal amount of intravascular contrast Comparison: 09/11/2018 Findings: There is evidence of recent appendectomy, with infiltration of the abdominal wall fat and subjacent musculature in the umbilical and subumbilical region, suggestion of a right lower quadrant laparoscopy port, absence of the appendix and surgical adrián in the region of the appendix. This is not evident previously. There is mild distention and wall thickening of the distal ileum, all with presence of small bowel feces indicating stasis of contents. No definite obstructive lesion demonstrated, although the terminal ileum is more normal in caliber. No fluid collection demonstrated. A few gas bubbles are seen within the incision. No free intraperitoneal gas is demonstrated. No evidence of diverticulosis or diverticulitis is demonstrated. The distal esophagus, stomach, duodenum are unremarkable. Poor contrast opacification limits assessment of the solid organs. The liver, gallbladder, bile ducts, pancreas, spleen, adrenals, kidneys are unremarkable. Incidental note is made of an accessory splenule. No pelvic mass or adenopathy. The uterus is not visualized, presumed surgically absent. The included lung bases demonstrate mild generalized groundglass opacity, likely reflecting dependent atelectatic change. The bones demonstrate mild degenerative changes of the lumbosacral junction. Impression: Interim appendectomy Mild dilatation distal ileum with evidence of stasis of contents in mild wall thickening. Suspect on the basis of postoperative ileus. Early/partial small bowel obstruction at the level of the terminal ileum also possible but deemed less likely No evidence of significant postoperative complications otherwise Incidental findings as noted, including accessory splenule, prior hysterectomy, mild degenerative lumbar spondylosis This agrees with the preliminary interpretation provided overnight by [facility] teleradiology service. The CT scanner at [facility] is accredited by the [employer] and the scans are performed using protocols designed to limit radiation exposure to as low as reasonably achievable to attain images of sufficient resolution adequate for diagnostic evaluation.
[2018-09-20 12:00] VITALS: BP 136/62
--- NOTE | 2018-09-20 13:08 | History & Physical ---
History and Physical History & Physicial HP dictated # [id number] Mark Nguyen MD Sep 20, 2018 13:07
--- NOTE | 2018-09-20 14:37 | Consultation ---
History of Present Illness General Reason for Hospitalization: Abdominal Pain Present Illness HPI 58 year old female well known to me from recent lap appy. states she was at home recovering until yesterday when she began to have cramping gas abdominal pain. no n/v/f/c. +BM. +flatus. states pain unlike prior and just gas pains in lower abdomen. was unsure if okay and came to ED for evaluation. Admitted for care and management. surgery called to evaluate for abdominal pain. patient seen, chart reviewed, patient examined. CT as noted. labs okay. Allergies: Coded Allergies: No Known Allergies (Unverified , 12/15/16) Medication History Scheduled Benazepril Hcl* (Benazepril Hcl*), 20 MG ORAL EVERY 12 HOURS, (Reported) Docusate Sodium* (Colace*), 100 MG ORAL TWICE A DAY, (Reported) Glipizide* (Glucotrol Xl*), 10 MG ORAL ACBREAKFAST, (Reported) Meloxicam* (Mobic*), 7.5 MG ORAL DAILY Metformin Hcl* (Metformin Hcl*), 1,000 MG ORAL DAILY, (Reported) Scheduled PRN Acetaminophen With Codeine (T#3) (Tylenol #3 Tab*), 1 TAB ORAL Q4H PRN for For Pain, (Reported) Discontinued Medications Aspirin* (Aspir 81*), 81 MG ORAL DAILY, (Reported) Discontinued Reason: MD discontinued med Patient History History Provided By: Patient, Medical Record, PMD Healthcare decision maker Resuscitation status Advanced Directive on File Past Medical/Surgical History Past Medical/Surgical History: (1) Upper respiratory infection (2) Bronchospasm (3) Diabetes (4) Abdominal pain Review of Systems Review of Symptoms General ROS: no weight loss or fever Psychological ROS: no depression or mood changes, no memory loss Ophthalmic ROS: no visual changes or eye irritation ENT ROS: no nasal congestion, hearing loss, dizziness Allergy and Immunology ROS: no allergic symptoms or urticaria Hematological and Lymphatic ROS: no swollen glands, unusual bleeding or bruising Endocrine ROS: no polyuria, polydipsia, weight changes, temperature intolerance Respiratory ROS: no cough, shortness of breath, or wheezing Cardiovascular ROS: no chest pain or dyspnea on exertion Gastrointestinal ROS: denies abdominal pain, no bright red blood in stool. Musculoskeletal ROS: no myalgias or arthralgias Neurological ROS: no TIA or stroke symptoms Dermatological ROS: no new or changing skin lesions, rashes or pruritis Physical Exam Physical Exam General appearance: alert, cooperative, no distress, appears stated age Head: Normocephalic, without obvious abnormality, atraumatic Eyes: conjunctivae/corneas clear. PERRL, EOM's intact. Fundi benign Throat: Lips, mucosa, and tongue normal. Teeth and gums normal Neck: supple, symmetrical, trachea midline, no adenopathy, thyroid: not enlarged, symmetric, no tenderness/mass/nodules, no carotid bruit and no JVD Lungs: clear to auscultation bilaterally Heart: regular rate and rhythm, S1, S2 normal, no murmur, click, rub or gallop Abdomen: soft, non-tender. Bowel sounds normal. No masses, no organomegaly Extremities: extremities normal, atraumatic, no cyanosis or edema Pulses: 2+ and symmetric Skin: Skin color, texture, turgor normal. No rashes or lesions Neurologic: Grossly normal Last 24 Hour Vital Signs Date Time Temp Pulse Resp B/P (MAP) Pulse Ox O2 Delivery O2 Flow Rate FiO2 09/20/18 12:00 97.6 61 19 136/62 (86) 97 09/20/18 09:00 Room Air 09/20/18 08:00 97.6 53 16 127/46 (73) 99 09/20/18 05:26 Room Air 09/20/18 05:03 97.9 60 19 122/66 (84) 99 09/20/18 04:57 98.6 62 17 117/55 99 Room Air 09/20/18 04:57 98.6 62 17 117/55 99 Room Air 09/20/18 03:57 98.7 09/20/18 02:50 70 25 Room Air 09/20/18 02:50 98.8 60 16 155/79 99 Room Air 09/20/18 02:32 98.8 70 25 155/79 95 Room Air Intake and Output 09/19/18 09/20/18 19:00 07:00 Intake Total 1000 ml Balance 1000 ml Intake IV Total 1000 ml # Voids 1 Laboratory Tests Test 09/20/18 02:50 09/20/18 03:33 White Blood Count 8.2 K/UL (4.8-10.8) Red Blood Count 4.11 M/UL (4.20-5.40) L Hemoglobin 10.9 G/DL (12.0-16.0) L Hematocrit 33.2 % (37.0-47.0) L Mean Corpuscular Volume 81 FL (80-99) Mean Corpuscular Hemoglobin 26.5 PG (27.0-31.0) L Mean Corpuscular Hemoglobin Concent 32.8 G/DL (32.0-36.0) Red Cell Distribution Width 13.8 % (11.6-14.8) Platelet Count 246 K/UL (150-450) Mean Platelet Volume 8.0 FL (6.5-10.1) Neutrophils (%) (Auto) 74.6 % (45.0-75.0) Lymphocytes (%) (Auto) 14.7 % (20.0-45.0) L Monocytes (%) (Auto) 7.3 % (1.0-10.0) Eosinophils (%) (Auto) 2.3 % (0.0-3.0) Basophils (%) (Auto) 1.2 % (0.0-2.0) Sodium Level 139 MMOL/L (136-145) Potassium Level 4.4 MMOL/L (3.5-5.1) Chloride Level 102 MMOL/L (98-107) Carbon Dioxide Level 28 MMOL/L (21-32) Anion Gap 9 mmol/L (5-15) Blood Urea Nitrogen 24 mg/dL (7-18) H Creatinine 1.0 MG/DL (0.55-1.30) Estimat Glomerular Filtration Rate 56.5 mL/min (>60) Glucose Level 166 MG/DL (74-106) H Calcium Level 9.2 MG/DL (8.5-10.1) Total Bilirubin 0.2 MG/DL (0.2-1.0) Aspartate Amino Transf (AST/SGOT) 15 U/L (15-37) Alanine Aminotransferase (ALT/SGPT) 28 U/L (12-78) Alkaline Phosphatase 73 U/L (46-116) Total Protein 8.3 G/DL (6.4-8.2) H Albumin 3.4 G/DL (3.4-5.0) Globulin 4.9 g/dL Albumin/Globulin Ratio 0.7 (1.0-2.7) L Lipase 148 U/L (73-393) Urine Color Pale yellow Urine Appearance Clear Urine pH 7 (4.5-8.0) Urine Specific [place] 1.010 (1.005-1.035) Urine Protein Negative (NEGATIVE) Urine Glucose (UA) Negative (NEGATIVE) Urine Ketones Negative (NEGATIVE) Urine Blood Negative (NEGATIVE) Urine Nitrite Negative (NEGATIVE) Urine Bilirubin Negative (NEGATIVE) Urine Urobilinogen Normal MG/DL (0.0-1.0) Urine Leukocyte Esterase 1+ (NEGATIVE) H Urine RBC 0-2 /HPF (0 - 2) Urine WBC 2-4 /HPF (0 - 2) Urine Squamous Epithelial Cells Few /LPF (NONE/OCC) Urine Bacteria Few /HPF (NONE) Microbiology Date/Time Source Procedure Growth Status 09/20/18 03:50 Rectum Received Height (Feet): 5 Height (Inches): 3.00 Weight (Pounds): 210 Medications Current Medications Medications (Trade) Dose Ordered Sig/Nguyen Route PRN Reason Start Time Stop Time Status Last Admin Dose Admin Dextrose/Sodium Chloride 1,000 ml @ 75 mls/hr [id number] IV 09/20/18 06:30 10/20/18 06:29 09/20/18 06:40 Iopamidol (Isovue-300 100ml) 100 ml NOW PRN INJ Radiology Procedure 09/20/18 02:45 Lansoprazole (Prevacid) 30 mg DAILY ORAL 09/20/18 11:30 10/20/18 11:29 09/20/18 12:02 Morphine Sulfate (Morphine Sulfate) 4 mg Q3H PRN IVP Severe Pain (Pain Scale 7-10) 09/20/18 06:30 09/27/18 06:29 09/20/18 07:57 Assessment/Plan Problem List: (1) Abdominal pain Assessment & Plan: Gaseous abdominal pain x 1 day states now resolving exam benign surgical wounds c/d/i labs okay tolerating diet likely ileus vs constipation vs enteritis now resolved CT w/ Impression: Interim appendectomy Mild dilatation distal ileum with evidence of stasis of contents in mild wall thickening. Suspect on the basis of postoperative ileus. Early/partial small bowel obstruction at the level of the terminal ileum also possible but deemed less likely No evidence of significant postoperative complications otherwise Incidental findings as noted, including accessory splenule, prior hysterectomy, mild degenerative lumbar spondylosis This agrees with the preliminary interpretation provided overnight by [facility] telerad[facility] service. -diet -d/c planning -f/u outpatient ICD Codes: R10.9 - Unspecified abdominal pain SNOMED: [id number] Primitivo Hart Sep 20, 2018 14:37
--- NOTE | 2018-09-20 15:36 | NUR ---
*-* INSURANCE *-* ALL CLINICALS AND REVIEWS HAVE BEEN FAXED TO; [facility] SEND ALL CLINICALS TO FAX- [phone]
--- NOTE | 2018-09-20 16:00 | NUR ---
CASE MANAGEMENT:REVIEW 58 YR OLD FEMALE PRESENTED TO ER CC: POST OP PAIN. S/P APPY ON 09/12/18. PAIN MEDICATION PRIOR TO PRESENTATION NOT HELPFUL SI: ABDOMINAL PAIN 98.7 70 25 155/79 95% ON RA H/H-10.9/33.2 BUN+24 GLUCOSE+166 IS: IV ZOFRAN X1 IV MORPHINE X1 1L NS BOLUS CT ABDOMEN : TO MED/SURG 3 [facility] PLAN: DISCHARGE HOME
--- NOTE | 2018-09-20 16:15 | NUR ---
NURSE NOTES: Patient discharged home as ordered. Patient is stable and denies pain or SOB. Thorough discharge instruction given to patient, verbalized understanding. Son is with patient and was given discharge teaching, verbalized understanding. No IV access. Skin is clean, dry, and intact. Surgical site clean, dry, and intact. Surgeon gave the OK for patient to resume working on thursday, patient made aware. Patient has all belongings and medications. Assisted into private vehicle by RAMIN.
--- NOTE | 2018-09-20 18:00 | History and Physical Report ---
DATE OF ADMISSION: 09/20/2018 CHIEF COMPLAINT: Abdominal pain. HISTORY OF PRESENT ILLNESS: This is a 58-year-old female, who just had appendectomy a week ago for acute appendicitis. The patient started having severe abdominal pain yesterday. She describes it mostly in the lower abdomen and some diffuse pain although to the ER reports epigastric pain, 10/10. The patient's pain was waxing and waning and finally she came to the emergency room and was admitted. She did have a CT scan of abdomen, which showed possible early ileus, but no other complication. Currently, she denies pain although she received some pain medication earlier. PAST MEDICAL HISTORY: History of hypertension, diabetes. MEDICATIONS: Reviewed in the EMR. SOCIAL HISTORY: No history of smoking or alcohol abuse. ALLERGIES: No known drug allergies. REVIEW OF SYSTEMS: Noncontributory. The patient did have a bowel movement yesterday and there was no nausea or vomiting. PHYSICAL EXAMINATION: GENERAL: The patient is a moderately obese female, in no acute distress. VITAL SIGNS: Blood pressure 136/62, pulse 61, respirations 19, temperature 97.6. HEENT: [place] conjunctivae. Anicteric sclerae. NECK: Supple. LUNGS: Clear to auscultation. HEART: S1, S2 without murmurs rubs. ABDOMEN: Soft, nontender. EXTREMITIES: No cyanosis or edema. LABORATORY FINDINGS: The CBC shows a WBC of 8200, hematocrit is 33.2, hemoglobin is 10.9, platelet 246,000. Chemistry panel shows a serum sodium 139, potassium 4.4, chloride 102, BUN is 24, creatinine 1, glucose is 166. AST 15, ALT of 28. Albumin is 3.4. The UA basically negative. ASSESSMENT: This is a 58-year-old female who was admitted with abdominal pain. In the ER, there was report that the patient has epigastric pain, so acute gastritis or a peptic ulcer disease needs to be ruled out, but the patient tells me her pain was mostly lower abdomen. It is possible that she had some mild ileus from previous surgery or even constipation. She is feeling better now. PLAN: The patient will be on full liquid diet. I started the patient on Prevacid 30 mg daily for possible acid reflux or peptic ulcer disease. The patient will be hydrated. Diet will be advanced. If she does not have any symptoms and hopefully we can discharge her soon. Mark Nguyen M.D. DR: JOSE JOB#: [id number] CC:
[2018-09-21] MEDS ORDERED: LACTULOSE20 GM/301 ORAL (06:40)
[2018-09-21] MEDS ORDERED: HYDROCODON-ACE1 EA15 ORAL (06:40)
--- NOTE | 2018-09-22 13:40 | Discharge Summary ---
Discharge Summary Discharge Summary _ DATE OF ADMISSION: 09/20/2018 DATE OF DISCHARGE: 09/20/2018 DISCHARGED BY: Dr. Nguyen: REASON FOR ADMISSION: 58 years old female, who just had an appendectomy, about a week ago due to acute appendicitis, presented with severe abdominal pain. Pain described in the lower abdomen , diffused; but in the emergency department she described pain as epigastric, 10 out of 10 on a scale 1-10. Per patient , pain was intermittent, waxing and waning, however finally she came to emergency room for evaluation . Laboratory workup revealed no leukocytosis, hemoglobin 10.9, hematocrit 32.2, stable platelet count. Stable electrolytes. BUN 24, creatinine 1.0. Stable LFT, lipase. CT of the abdomen and pelvis revealed interim appendectomy. Mild dilatation , distal ileum with evidence of stasis of contents in mild wall thickening. Suspect on the basis of postoperative ileus. Early/partial small bowel obstruction at the level of the terminal ileum was also possible , but deemed less likely No evidence of significant postoperative complications otherwise. Patient was admitted for further management. CONSULTANTS: surgery Dr. Hart [facility] COURSE: Patient admitted to the floor. Patient started on the IV fluids and full liquid diet. Pain management was addressed. Pain was controlled Bowel regimen instituted. Supportive care provided. Antiemetic provided as needed. Surgery consult was requested. GI prophylaxis provided. Surgeon seen and evaluated patient. Abdominal exam was benign. Abdominal pain resolved. Surgical wounds appeared clean , dry, and intact. Patient was able to tolerate diet. According to surgeon , patient likely had ileus versus constipation versus enteritis , which resolved by this time already. Surgeon advised to further advance diet and cleared patient for discharge . Recommended outpatient follow-up. Patient clinically stabilized tolerated diet , pain controlled. Patient was stable for discharge home Due to rapid and unexpected improvement in patient condition patient was discharged in 1 day FINAL DIAGNOSES: Abdominal pain Likely ileus versus constipation versus enteritis- resolved Status post recent appendectomy DISCHARGE MEDICATIONS: See Medication Reconciliation list. DISCHARGE INSTRUCTIONS: Patient was discharged home. Follow-up with surgeon as outpatient as advised by surgeon. I have been assigned to dictate discharge summary for this account. I was not involved in the patient's management. Mariah James NP Sep 22, 2018 13:40
--- NOTE | 2018-09-23 09:14 | NUR ---
*-* INSURANCE *-* ALL CLINICALS AND REVIEWS HAVE BEEN FAXED TO; [facility] SEND ALL CLINICALS TO FAX- [phone]
== END 2018-09-20 16:35 | disposition home or self-care (01) | DRG 251 ==
LOC: EMR 02:57 → 3E 03:22 → EDBEDREQ 03:57
DX: R10.9 Unspecified abdominal pain (principal); K56.7 Ileus, unspecified; K59.00 Constipation, unspecified; E11.9 Type 2 diabetes mellitus without complications; K52.9 Noninfective gastroenteritis and colitis, unspecified; I10 Essential (primary) hypertension; Z98.890 Other specified postprocedural states
CPT/HCPCS: 36415; 74177; 80053; 81003; 83690; 85025; 87081; 96361; 96374; 96375; 99285; J2405

== ENCOUNTER 2018-09-21 04:51 | Emergency (ER) | payer MEDICAID ==
[~2018-09-21] VITALS: Ht 160 cm; Wt 95.3 kg
[2018-09-21] MEDS ORDERED: Morphine Sulfate 10mg/ml Inj IVP ONE (05:15)
--- NOTE | 2018-09-21 05:20 | Emergency Room Report ---
History of Present Illness General Chief Complaint: General Complaint Source: Patient, Medical Record Present Illness HPI This is a 58-year-old female with history diabetes and high blood pressure. She presents with chief complaint of abdominal pain. She is status post appendectomy about 10 days ago. She was doing well until couple days ago. She came in yesterday for abdominal pain. CT scan show ileus. Labs unremarkable. She was doing well was discharged home this morning. She came back today because pain came back again. She says she's not passing gas. Last bowel movement was 2 days ago. No nausea no vomiting. Pain is sharp and crampy in the lower quadrant area. Pain is 9 out of 10. Worse with movement. Denies any other complaint. Tylenol 3 is not helping. Allergies: Coded Allergies: No Known Allergies (Unverified , 12/15/16) Patient History Past Medical History: see triage record, old chart reviewed, DM, HTN Past Surgical History: appy Pertinent Family History: none Social History: Denies: smoking Now: No Immunizations: other Reviewed Nursing Documentation: PMH: Agreed; PSxH: Agreed Nursing Documentation-PMH Hx Cardiac Problems: Yes Hx Hypertension: Yes Hx Diabetes: Yes Hx Cancer: No Hx Gastrointestinal Problems: No Hx Neurological Problems: No Review of Systems Eye: Denies: eye pain, blurred vision ENT: Denies: ear pain, nose congestion, throat swelling Respiratory: Denies: cough, shortness of breath Cardiovascular: Denies: chest pain, palpitations Gastrointestinal: Reports: abdominal pain; Denies: diarrhea, nausea, vomiting Musculoskeletal: Denies: back pain, joint pain Skin: Denies: rash Neurological: Denies: headache, numbness Endocrine: Denies: increased thirst, increased urine Hematologic/Lymphatic: Denies: easy bruising All Other Systems: negative except mentioned in HPI Physical Exam Vital Signs Date Time Temp Pulse Resp B/P (MAP) Pulse Ox O2 Delivery O2 Flow Rate FiO2 09/21/18 04:55 98.1 65 18 140/71 95 Room Air vitals normal Sp02 EP Interpretation: reviewed, normal General Appearance: well appearing, no apparent distress, alert Head: normocephalic, atraumatic Eyes: bilateral eye PERRL, bilateral eye EOMI ENT: hearing grossly normal, normal pharynx Neck: full range of motion, supple, no meningismus Respiratory: chest non-tender, lungs clear, normal breath sounds Cardiovascular #1: regular rate, rhythm, no murmur Gastrointestinal: no mass, no organomegaly, no bruit, non-distended, abnormal bowel sounds - Hyperactive, tenderness - Lower quadrants Musculoskeletal: back normal, gait/station normal, normal range of motion Psychiatric: mood/affect normal Skin: warm/dry Medical Decision Making Diagnostic Impression: Primary Impression: Abdominal pain Qualified Codes: R10.84 - Generalized abdominal pain Additional Impression: Constipation Qualified Codes: K59.00 - Constipation, unspecified ER Course Patient with abdominal pain postoperatively. This been 7 days now. There is no evidence of any obstruction. Patient eating and having bowel movement. She has severe constipation. I see no evidence of any volvulus or torsion. Most likely an ileus versus issue. Better after enema. No free air. We'll discharge home. Labs unremarkable. I see no need for CT scan she she had one less than 48 hours ago. Other X-Ray Diagnostic Results Other X-Ray Diagnostic Results : X-Ray ordered: Abdominal x-rays # of Views/Limited Vs Complete: 3 View Indication: Pain EP Interpretation: Yes Interpretation: no dislocation, no soft tissue swelling, nonspecific bowel gas, other - Constipation, no free air. Impression: Other - constipation Electronically Signed by: Brian Amos MD Last Vital Signs Date Time Temp Pulse Resp B/P (MAP) Pulse Ox O2 Delivery O2 Flow Rate FiO2 09/21/18 04:55 98.1 65 18 140/71 95 Room Air Status: improved Disposition: HOME, SELF-CARE Condition: Stable Scripts Hydrocodone/Acetaminophen 5-325* (HYDROCODONE/ACETAMINOPHEN 5-325*) 1 Each Tablet 1 TAB ORAL Q6H PRN for For Pain, #10 TAB 0 Refills Prov: Brian Amos MD 09/21/18 Lactulose (LACTULOSE*) 20 Gm/30 Ml Solution 30 ML ORAL DAILY, #120 ML 0 Refills Prov: Brian Amos MD 09/21/18 Referrals: [facility],REFERRING (PCP) Additional Instructions: Increase fluids. Increase fiber. May use enema. Follow-up with your DrMery in 2 to 3 days if not better. Return if worse. Brian Amos MD Sep 21, 2018 05:20
[2018-09-21 05:44] VITALS: BP 140/71
[2018-09-21 05:47] LABS: HEMATOCRIT 34.2 % (37.0-47.0); MEAN CORPUSCULAR VOLUME 82 FL (80-99); PLATELET COUNT 238 K/UL (150-450); RED BLOOD COUNT 4.16 M/UL (4.20-5.40); RED CELL DISTRIBUTION WIDTH 14.4 % (11.6-14.8); WHITE BLOOD COUNT 9.7 K/UL (4.8-10.8)
--- NOTE | 2018-09-21 05:48 | NUR ---
ED Nurse Note: Patient walked in with her , c/o abdominal pain. Per patient she was at [facility] ER yesterday for the same reason. AAO x4, VSS at this time, skin is dry, intact, warm to touch. Patient had appendisitis surgery at August, and after that she has difficulty to passes gases. Since yesterday pain became intolerable.
--- NOTE | 2018-09-21 06:00 | NUR ---
ED Nurse Note: Administered enema, waiting for BM.
[2018-09-21] MEDS ORDERED: Fleet's Enema 133ml RECTAL ONE (06:15)
[2018-09-21] MEDS ORDERED: HYDROCODON-ACE1 EA15 ORAL (06:40)
[2018-09-21] MEDS ORDERED: LACTULOSE20 GM/301 ORAL (06:40)
[2018-09-21 06:55] LABS: ANION GAP 10 mmol/L (5-15); BLOOD UREA NITROGEN 17 mg/dL (7-18); CARBON DIOXIDE 24 MMOL/L (21-32); CHLORIDE 106 MMOL/L (98-107); CREATININE 0.9 MG/DL (0.55-1.30); POTASSIUM 4.4 MMOL/L (3.5-5.1); SODIUM 140 MMOL/L (136-145)
[2018-09-21 07:04] VITALS: BP 117/60
--- NOTE | 2018-09-21 07:06 | NUR ---
ED Nurse Note: Pt cleared by health care Provider for discharge. DC instructions/prescription was given and explained to pt and verbalized understanding of teachings. All medical deviecs such as ID band and IV removed. Pt is AAO x4, ambulatory and left with all personal belongings.
--- NOTE | 2018-09-21 12:59 | Diagnostic Imaging Report ---
Indication: Abdominal pain Technique: Supine and left lateral decubitus views of the abdomen Comparison: 09/20/2018 CT scan Findings: Prominent right lower quadrant gas-filled mildly dilated small bowel loop is noted, appears similar to prior exam. Stool is seen in the ascending colon. No other bowel dilatation is demonstrated. No free interval luminal gas demonstrated. 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
== END 2018-09-21 07:07 | disposition home or self-care (01) ==
LOC: EMR 05:01
DX: R10.84 Generalized abdominal pain (principal); K59.00 Constipation, unspecified; E11.9 Type 2 diabetes mellitus without complications; I10 Essential (primary) hypertension; Z90.89 Acquired absence of other organs; Z98.890 Other specified postprocedural states
CPT/HCPCS: 36415; 74019; 80048; 82962; 85025; 96361; 96374; 96375; 99284; J2270; J2405

== ENCOUNTER 2020-02-26 01:03 | Emergency (ER) | payer MEDICAID ==
[~2020-02-26] VITALS: Ht 165.1 cm; Wt 90.7 kg
[~2020-02-26 01:03] MED LIST changes: +HYDROCODON-ACE1 EA15 ORAL; +LACTULOSE20 GM/301 ORAL
[2020-02-26 01:15] VITALS: BP 144/67
[2020-02-26] MEDS ORDERED: Aspirin Baby 81mg ORAL ONE (01:15)
--- NOTE | 2020-02-26 01:15 | NUR ---
ED Nurse Note: pt ambulated into ed from home CO SOB x 3 days. Pt states that SOB is unrelieved even after using resuce inhaler at home. Pt states that she was recently admitted to [facility] for same issue and stated that issue was s/p not resolved/condition remained the same. Pt aao x 4, ambulates with steady gait. VSS no ss of distress noted. ERMD at bedside. Awaiting further orders. Pt placed in gown and on monitor, placed on 2L NC for 100%.
--- NOTE | 2020-02-26 01:36 | Emergency Room Report ---
History of Present Illness General Chief Complaint: Dyspnea/Respdistress Present Illness HPI 59-year-old female with a history of diabetes here with shortness of breath. The patient was here approximately 2 weeks ago with the same complaint. At that time her lab work was largely unremarkable, EKG was normal, x-ray was normal. However on CT scan the patient had very mild pulmonary edema. She was given Lasix and admitted to the hospital. She was discharged after a few days. She says that she went home and has been feeling normal but then today began to feel much more short of breath. She says "I am just reacting to the smoke I think." Patient is tearful and able to speak in full sentences without any use of accessory respiratory musculature. She had a normal oxygen saturation on room air but because of her subjective shortness of breath she was put on a 2 L nasal cannula. Denies headaches, vision change, fevers, chills, chest pain, palpitations, back pain, abdominal pain, nausea, vomiting, diarrhea, dysuria. Allergies: Coded Allergies: No Known Allergies (Unverified , 12/15/16) COVID-19 Screening Contact w/high risk pt: No Experienced COVID-19 symptoms?: No COVID-19 Testing performed LOCOMOTIVE CRANE OPERATOR HELPER: No Nursing Documentation-PMH Hx Cardiac Problems: Yes Hx Hypertension: Yes Hx Diabetes: Yes Hx Cancer: No Hx Gastrointestinal Problems: Yes - Ileus, abd pain Hx Neurological Problems: No Review of Systems All Other Systems: negative except mentioned in HPI Physical Exam Vital Signs Date Time Temp Pulse Resp B/P (MAP) Pulse Ox O2 Delivery O2 Flow Rate FiO2 02/26/20 01:05 98.4 64 24 144/67 (92) 98 Room Air Sp02 EP Interpretation: reviewed, normal General Appearance: no apparent distress, alert, GCS 15, non-toxic Head: normocephalic, atraumatic Eyes: bilateral eye normal inspection, bilateral eye PERRL ENT: hearing grossly normal, normal pharynx, no angioedema, normal voice Neck: full range of motion, supple/symm/no masses Respiratory: chest non-tender, lungs clear, normal breath sounds, speaking full sentences Cardiovascular #1: regular rate, rhythm, no edema Cardiovascular #2: 2+ carotid (R), 2+ carotid (L), 2+ radial (R), 2+ radial (L) , 2+ dorsalis pedis (R), 2+ dorsalis pedis (L) Gastrointestinal: normal bowel sounds, non tender, soft, non-distended, no guarding, no rebound Rectal: deferred Genitourinary: normal inspection, no CVA tenderness Musculoskeletal: back normal, normal range of motion, calf tenderness, gait/ station normal, non-tender Neurologic: alert, motor strength/tone normal, sensory intact, responsive, speech normal Psychiatric: judgement/insight normal, memory normal, mood/affect normal, no suicidal/homicidal ideation, anxious, other - Appears highly anxious, is tearful Lymphatic: no adenopathy Medical Decision Making Diagnostic Impression: Primary Impression: Dyspnea Additional Impressions: Obesity (BMI 30-39.9) Anxiety ER Course Laboratory Tests Test 02/26/20 01:17 White Blood Count 6.5 K/UL (4.8-10.8) Red Blood Count 3.97 M/UL (4.20-5.40) L Hemoglobin 11.6 G/DL (12.0-16.0) L Hematocrit 34.6 % (37.0-47.0) L Mean Corpuscular Volume 87 FL (80-99) Mean Corpuscular Hemoglobin 29.2 PG (27.0-31.0) Mean Corpuscular Hemoglobin Concent 33.4 G/DL (32.0-36.0) Red Cell Distribution Width 13.0 % (11.6-14.8) Platelet Count 191 K/UL (150-450) Mean Platelet Volume 8.8 FL (6.5-10.1) Neutrophils (%) (Auto) 60.6 % (45.0-75.0) Lymphocytes (%) (Auto) 29.0 % (20.0-45.0) Monocytes (%) (Auto) 6.6 % (1.0-10.0) Eosinophils (%) (Auto) 2.5 % (0.0-3.0) Basophils (%) (Auto) 1.3 % (0.0-2.0) Sodium Level Pending Potassium Level Pending Chloride Level Pending Carbon Dioxide Level 22 MMOL/L (21-32) Blood Urea Nitrogen 25 mg/dL (7-18) H Creatinine 1.3 MG/DL (0.55-1.30) Estimated Glomerular Filtration Rate 41.6 mL/min (>60) Glucose Level 321 MG/DL (74-106) H Calcium Level 9.0 MG/DL (8.5-10.1) Total Bilirubin 0.3 MG/DL (0.2-1.0) Aspartate Amino Transferase (AST) 14 U/L (15-37) L Alanine Aminotransferase (ALT) 28 U/L (12-78) Alkaline Phosphatase 113 U/L (46-116) Troponin I 0.000 ng/mL (0.000-0.056) Pro-B-Type Natriuretic Peptide 106 pg/mL (0-125) Total Protein 7.5 G/DL (6.4-8.2) Albumin 3.5 G/DL (3.4-5.0) Globulin 4.0 g/dL Albumin/Globulin Ratio 0.9 (1.0-2.7) L Microbiology Date/Time Source Procedure Growth Status 02/26/20 01:17 Nasopharynx SARS-CoV-2 RdRp Gene Assay - Final Complete EKG: Rate 59 bpm. Sinus rhythm. No ectopy. Normal axis. No ST or T wave abnormalities. Chest x-ray: No acute cardiopulmonary disease. Single frontal view demonstrates normal cardiomediastinal silhouette. No consolidation or pneumothorax. No pleural effusions. No interval change when compared to the prior study Ddx: ACS, dissection, PE, PTX, pericarditis, myocarditis, musculoskeletal, GERD/ GI conditions, anxiety 59-year-old female recently discharged in the hospital for nonspecific shortness of breath here again for shortness of breath. Patient was hemodynamically stable in the emergency department and had completely normal vital signs on room air. Patient's lungs were clear, she had no evidence of deep venous thrombosis, no pulmonary embolism risk factors. EKG was completely unremarkable. Troponin negative. CBC and CMP also normal. Chest x-ray was normal as well. COVID test negative. Patient was tearful and complaining of shortness of breath on arrival. She was given 1 mg of Ativan IV and said "that medicine fixed my shortness of breath." When covid test came back negative the patient was also given a 15-minute DuoNeb treatment. She was observed on room air for another hour and her vital signs remained completely normal. She was in no acute distress and did not exhibit any signs of shortness of breath. She was speaking full sentences. She was given a prescription for an albuterol inhaler and instructions to come back to the emergency department if she has any worsening symptoms. She expressed understanding and was discharged. Last Vital Signs Date Time Temp Pulse Resp B/P (MAP) Pulse Ox O2 Delivery O2 Flow Rate FiO2 02/26/20 01:05 98.4 64 24 144/67 (92) 98 Room Air Scripts Albuterol Sulfate* (ALBUTEROL SULFATE HHN*) 2.5 Mg/3 Ml Vial.neb 2.5 MG HHN Q4H PRN for Shortness of Breath, #25 VIAL Prov: Rickey Nugent M.D. 02/26/20 Rickey Nugent M.D. Feb 26, 2020 01:36
--- NOTE | 2020-02-26 01:40 | NUR ---
ED Nurse Note: xray at bedside
[2020-02-26] MEDS ORDERED: LORazepam Inj 2mg/ml 1ml IV ONE (01:45)
[2020-02-26] MEDS ORDERED: Albuterol/Ipratropium 3ml neb HHN ONE (01:45)
--- NOTE | 2020-02-26 01:45 | NUR ---
ED Nurse Note: all blood work sent to labs. COVID 19 sent to lab. all medications administered, pt tolerated well no ss of distress noted. will continue to monitor.
--- NOTE | 2020-02-26 01:57 | Diagnostic Imaging Report ---
EXAM: XR Chest, 1 View CLINICAL HISTORY: SOB Comparison: CT chest and radiograph 02/12/2020. FINDINGS: Single frontal view demonstrates a normal cardiomediastinal silhouette. No focal consolidation or pneumothorax. No pleural effusions. The visualized osseous structures are within normal limits. No significant interval change when compared to the prior study. IMPRESSION: No acute cardiopulmonary disease.
[2020-02-26 02:24] LABS: BASOPHILS % (AUTO) 1.3 % (0.0-2.0); EOSINOPHILS % (AUTO) 2.5 % (0.0-3.0); HEMATOCRIT 34.6 % (37.0-47.0); HEMOGLOBIN 11.6 G/DL (12.0-16.0); MEAN CORPUSCULAR VOLUME 87 FL (80-99); MONOCYTES % (AUTO) 6.6 % (1.0-10.0); NEUTROPHILS % (AUTO) 60.6 % (45.0-75.0); PLATELET COUNT 191 K/UL (150-450); RED BLOOD COUNT 3.97 M/UL (4.20-5.40); WHITE BLOOD COUNT 6.5 K/UL (4.8-10.8)
--- NOTE | 2020-02-26 02:50 | NUR ---
ED Nurse Note: RT at bedside
[2020-02-26 03:09] LABS: ALANINE AMINOTRANSFERASE 28 U/L (12-78); ALBUMIN 3.5 G/DL (3.4-5.0); ALBUMIN/GLOBULIN RATIO 0.9 (1.0-2.7); ALKALINE PHOSPHATASE 113 U/L (46-116); ASPARTATE AMINO TRANSFERASE 14 U/L (15-37); BILIRUBIN,TOTAL 0.3 MG/DL (0.2-1.0); BLOOD UREA NITROGEN 25 mg/dL (7-18); CARBON DIOXIDE 22 MMOL/L (21-32); CREATININE 1.3 MG/DL (0.55-1.30)
[2020-02-26] MEDS ORDERED: ALBUTEROL2.5 MG/3 M HHN (03:17)
[2020-02-26 03:26] LABS: CHLORIDE 104 MMOL/L (98-107); POTASSIUM 4.4 MMOL/L (3.5-5.1); SODIUM 139 MMOL/L (136-145)
[2020-02-26 03:30] VITALS: BP 141/67
--- NOTE | 2020-02-26 03:45 | NUR ---
ED Nurse Note: ERMD at bedside
[2020-02-26 04:40] VITALS: BP 142/72
--- NOTE | 2020-02-26 04:40 | NUR ---
ER DISCHARGE NOTE: Patient is cleared to be discharged home per ERMD, pt is aox4, 98% on room air, with stable vital signs. pt was given dc and prescription instructions, pt was able to verbalize understanding, pt id band and iv site removed without complications. pt is able to ambulate with steady gait. pt took all belongings.
--- NOTE | 2020-02-29 21:55 | Cardiology Report ---
APPROVED REPORT EKG Measurement Heart [id number] ID [id number] <Conclusion> Sinus bradycardia Otherwise normal ECG
== END 2020-02-26 04:40 | disposition home or self-care (01) ==
LOC: EMR 01:19
DX: R06.00 Dyspnea, unspecified (principal); E66.9 Obesity, unspecified; F41.9 Anxiety disorder, unspecified; Z68.33 Body mass index [BMI] 33.0-33.9, adult; I10 Essential (primary) hypertension
CPT/HCPCS: 36415; 71045; 80053; 83880; 84484; 85025; 93005; 94640; 96374; U0002; Z7502; 99284; J7620

== ENCOUNTER 2020-08-18 01:12 | Inpatient (IN) | payer MEDICAID ==
[2020-08-18] VITALS (8 sets, daily range): BP systolic 94–129; BP diastolic 45–96
[~2020-08-18] VITALS: Ht 154.9 cm; Wt 101.6 kg
[~2020-08-18 01:12] MED LIST changes: +ALBUTEROL2.5 MG/3 M HHN
--- NOTE | 2020-08-18 01:26 | Emergency Room Report ---
History of Present Illness General Chief Complaint: Abdominal Pain Source: Patient Present Illness HPI This is a 60-year-old female with a history of diabetes and hypertension. She also has a previous appendectomy. She presents with chief complaint abdominal pain. Onset was 3 hours ago. Pain is diffuse but mostly upper quadrants. She has nausea but no vomiting. No diarrhea. Pain is 9 out of 10. No radiation of her pain. Nothing made it better. Nothing made it worse. Allergies: Coded Allergies: No Known Allergies (Unverified , 12/15/16) COVID-19 Screening Contact w/high risk pt: No Experienced COVID-19 symptoms?: No COVID-19 Testing performed ONLINE MARKETING SPECIALIST: No Patient History Past Medical History: see triage record, old chart reviewed, DM, HTN Past Surgical History: appy Pertinent Family History: none Social History: Denies: smoking Now: No Immunizations: other Reviewed Nursing Documentation: PMH: Agreed; PSxH: Agreed Nursing Documentation-PMH Hx Cardiac Problems: Yes Hx Hypertension: Yes Hx Diabetes: Yes Hx Cancer: No Hx Gastrointestinal Problems: Yes - Ileus, abd pain Hx Neurological Problems: No Review of Systems Eye: Denies: eye pain, blurred vision ENT: Denies: ear pain, nose congestion, throat swelling Respiratory: Denies: cough, shortness of breath Cardiovascular: Denies: chest pain, palpitations Gastrointestinal: Reports: abdominal pain, nausea; Denies: diarrhea, vomiting Musculoskeletal: Denies: back pain, joint pain Skin: Denies: rash Neurological: Denies: headache, numbness Endocrine: Denies: increased thirst, increased urine Hematologic/Lymphatic: Denies: easy bruising All Other Systems: negative except mentioned in HPI Physical Exam Vitals unremarkable Sp02 EP Interpretation: reviewed, normal General Appearance: well appearing, no apparent distress, alert, obese Head: normocephalic, atraumatic Eyes: bilateral eye PERRL, bilateral eye EOMI ENT: hearing grossly normal, normal pharynx Neck: full range of motion, supple, no meningismus Respiratory: chest non-tender, lungs clear, normal breath sounds Cardiovascular #1: regular rate, rhythm, no murmur Gastrointestinal: no mass, no organomegaly, no bruit, non-distended, tenderness - periumbilical, decreased bowel sounds Musculoskeletal: back normal, normal range of motion, gait/station normal Psychiatric: mood/affect normal Medical Decision Making Diagnostic Impression: Primary Impression: Incarcerated ventral hernia Additional Impressions: Small bowel obstruction Morbid obesity with BMI of 45.0-49.9, adult ER Course This patient presents with abdominal pain and vomiting. She had previous laparoscopic appendectomy that was done here in 2019. CT scan show incarcerated ventral/umbilical hernia with small bowel obstruction. Because of her body habitus and large pannus, I cannot tell if I was able to reduce the hernia or not. We will place an NG tube and admit for further work-up. I will consult surgery on her also. She also described symptom of obstructive sleep apnea. She said sometimes she stop breathing at night and her has to give her [id number] and wake her up. She never had work-up on this. CT/MRI/US Diagnostic Results CT/MRI/US Diagnostic Results : Imaging Test Ordered: CT abdomen pelvis Impression Read by radiologist. Findings suspicious for incarcerated hernia with resulting small bowel obstruction. Status: improved Disposition: ADMITTED INPATIENT Condition: Serious Brian Amos MD Aug 18, 2020 01:26
[2020-08-18] MEDS ORDERED: Morphine Sulfate 4mg/ml Inj (IV USE ONLY) IVP ONE ×2 (01:30→03:30)
[2020-08-18 01:53] LABS: BASOPHILS % (AUTO) 0.8 % (0.0-2.0); EOSINOPHILS % (AUTO) 1.3 % (0.0-3.0); HEMATOCRIT 38.3 % (37.0-47.0); HEMOGLOBIN 12.3 G/DL (12.0-16.0); LYMPHOCYTES % (AUTO) 11.5 % (20.0-45.0); MEAN CORPUSCULAR VOLUME 90 FL (80-99); MONOCYTES % (AUTO) 4.8 % (1.0-10.0); NEUTROPHILS % (AUTO) 81.6 % (45.0-75.0); PLATELET COUNT 209 K/UL (150-450); RED BLOOD COUNT 4.26 M/UL (4.20-5.40); RED CELL DISTRIBUTION WIDTH 12.7 % (11.6-14.8); WHITE BLOOD COUNT 10.5 K/UL (4.8-10.8)
[2020-08-18 02:02] LABS: CALCIUM 9.4 MG/DL (8.5-10.1); CREATININE 1.4 MG/DL (0.55-1.30); POTASSIUM 4.7 MMOL/L (3.5-5.1)
--- NOTE | 2020-08-18 02:05 | NUR ---
pt to ct via cart.
[2020-08-18 02:07] LABS: ALBUMIN 3.8 G/DL (3.4-5.0); ALBUMIN/GLOBULIN RATIO 0.9 (1.0-2.7); BILIRUBIN,TOTAL 0.2 MG/DL (0.2-1.0)
--- NOTE | 2020-08-18 02:34 | NUR ---
pt back to tx rm. connected back to monitor. v/s stable. pt in no distress. will continue to monitor pt closely.
--- NOTE | 2020-08-18 03:14 | Diagnostic Imaging Report ---
EXAM: CT Abdomen and Pelvis Without Intravenous Contrast CLINICAL HISTORY: ABD PAIN TECHNIQUE: Axial computed tomography images of the abdomen and pelvis without intravenous contrast. CTDI is 13.60 mGy and DLP is 674.10 mGy-cm. One or more of the following dose reduction techniques were used: automated exposure control, adjustment of the mA and/or kV according to patient size, use of iterative reconstruction technique. COMPARISON: 09/20/[address] with IV contrast. FINDINGS: Lung bases: Unremarkable. No mass. No consolidation. ABDOMEN: Liver: Unremarkable. Gallbladder and bile ducts: Unremarkable. No calcified stones. No ductal dilation. Pancreas: Unremarkable. No ductal dilation. Spleen: Unremarkable. No splenomegaly. Adrenals: Unremarkable. No mass. Kidneys and ureters: Unremarkable. No obstructing stones. No hydronephrosis. Stomach and bowel: Ventral periumbilical bowel-containing hernias associated with distention of small bowel loops containing fecal debris. There is evidence of previous bowel surgery. No mucosal thickening. PELVIS: Appendix: No findings to suggest acute appendicitis. Bladder: Unremarkable. No stones. Reproductive: Unremarkable as visualized. ABDOMEN and PELVIS: Intraperitoneal space: Unremarkable. No free air. No significant fluid collection. Bones/joints: No acute fracture. No dislocation. Soft tissues: See above. Vasculature: Unremarkable. No abdominal aortic aneurysm. Lymph nodes: Unremarkable. No enlarged lymph nodes. IMPRESSION: Findings are suspicious for an incarcerated hernia resulting in a small bowel obstruction. Urgent surgical consultation recommended.. <MYCVCSECTION> Communications: 08/18/20 03:15 Call Doctor Regarding Above results, called Dr Amos on 08/18 03:15 (-08:00)
--- NOTE | 2020-08-18 03:50 | NUR ---
pt ambulatory to washroom
--- NOTE | 2020-08-18 04:08 | NUR ---
18 [address] in place to right nare
[2020-08-18 04:36] LABS: APPEARANCE,URINE CLEAR; BILIRUBIN, URINE NEGATIVE (NEGATIVE); COLOR,URINE PALE YELLOW; GLUCOSE, URINE (UA) 4+ (NEGATIVE); KETONES,URINE NEGATIVE (NEGATIVE); LEUKOCYTE ESTERASE ,URINE NEGATIVE (NEGATIVE); NITRITE,URINE NEGATIVE (NEGATIVE); PH,URINE 6 (4.5-8.0); PROTEIN,URINE NEGATIVE (NEGATIVE); UROBILINOGEN,URINE NORMAL MG/DL (0.0-1.0)
--- NOTE | 2020-08-18 04:43 | NUR ---
report given to rn. bed 412-2 pt transported via cart by tech
--- NOTE | 2020-08-18 05:30 | NUR ---
NURSE NOTES: RECEIVED PATIENT LYING IN BED, AWAKE, ALERT/ORIENTED X4, TAJIK SPEAKING, ABLE TO VERBALIZE NEEDS IN THAI. VERY PLEASANT AND COOPERATIVE. ADMITTING DIAGNOSIS INCARCERATED HERNIA, SMALL BOWEL OBSTRUCTION, RIGHT NGT TUBE LIS / PATIENT MEDICATED IN ER FOR PAIN, DENIES PAIN DURING ASSESSMENT, PATIENT UNDER THE CARE OF DR. SOLO. IV INTACT TO RIGHT HAND/GAUGE 22, NO REDNESS/SWELLING NOTED. NO SIGNS AND SYMPTOMS OF ACUTE CARDIO RESPIRATORY DISTRESS/SHORTNESS OF BREATH, DENIES CHEST PAIN, NOTED WITH TRACE EDEMA. ABDOMEN ROUND/OBESE/HYPOACTIVE BOWEL SOUNDS, NO NAUSEA/VOMITING. SKIN ASSESSMENT, NO OPEN AREAS NOTED. ORIENTATED PATIENT TO ROOM/ENVIRONMENT. SIDE RAILS UP X2 FOR SAFETY, BED IN LOWEST POSITION FOR SAFETY, ENCOURAGED PATIENT TO UTILIZE CALL LIGHT FOR ASSISTANCE, VERBALIZE UNDERSTANDING. NAD.
[2020-08-18] MEDS ORDERED: ASPIRIN81 MG ORAL (06:47)
[2020-08-18] MEDS ORDERED: IBUPROFEN600 M1 ORAL (06:48)
--- NOTE | 2020-08-18 07:15 | NUR ---
NURSE HAND-OFF: Important Events on Shift:[NEW ADMISSION, INCARCERATED SMALL HERNIA/SMALL BOWEL OBSTRUCTION, LEFT MESSAGE FOR ADMITTING ORDERS] Patient Status: [STABLE,DENIES ABDOMINAL PAIN] Diet: [NPO, NGT LIS/RIGHT NARE] Pending Orders: [LEFT MESSAGE FOR ADMITTING ORDERS] Pending Results/Labs:[] Pending MD notification:[] Latest Vital Signs: Temperature 98.2 , Pulse 70 , B/P 108 /82 , Respiratory Rate 15 , O2 SAT 94 , Room Air, O2 Flow Rate 2.0 . Vital Sign Comment: [STABLE,AFEBRILE] Latest Michael Fall Score: 45 Fall Risk: High Risk Safety Measures: Call light Within Reach, Bed Alarm Zone 1, Side Rails Side Rails x2, Bed position Low and Locked. Fall Precautions: Yellow Socks Door Sign Patient Fall Education Report given to [ASYARN].
--- NOTE | 2020-08-18 07:52 | NUR ---
NURSE NOTES: Received pt from JERI Oakes. pt was resting NGT ILS is on. no acute distress. call light w/in reach.
[2020-08-18] MEDS ORDERED: HydrALAZINE 25mg tab ORAL PRN (08:30)
[2020-08-18] MEDS ORDERED: Acetaminophen 650 MG SUPP RECTAL PRN (08:30)
[2020-08-18] MEDS ORDERED: HYDROmorphone 1mg/ml Carpuject IVP PRN (08:30)
[2020-08-18] MEDS ORDERED: D5NS 1,000 ML IV SCH (09:30)
[2020-08-18] MEDS: Pantoprazole Inj IVP SCH (09:35)
[2020-08-18] MEDS: Heparin 5000 units/ml inj SUBQ SCH ×2 (09:37→20:20)
--- NOTE | 2020-08-18 10:00 | NUR ---
NURSE NOTES: Dr. Reagan came in and D/C the N/G tube.
--- NOTE | 2020-08-18 10:44 | Consultation ---
History of Present Illness General Date patient seen: Aug 18, 2020 Reason for Hospitalization: Abdominal Pain Present Illness HPI This is a 60-year-old female who I performed a laparoscopic appendectomy on in 2019 that has been doing well since presented to the emergency department [facility] last night complaining of acute onset generalized abdominal pain mainly in the upper quadrants. States that she had dinner with the family identified some abdominal discomfort persistently and then began to have nausea and emesis with one bout of nonbloody emesis so she asked her family to bring her in for evaluation. In ED labs okay CT with ventral hernia identified but how potential SBO. Surgery called to evaluate assist with care. Patient seen, patient evaluated, chart reviewed. Currently no nausea vomiting fever chills. States pain is resolved. No flatus today. Last bowel movement yesterday last flatus yesterday. NG tube was placed minimal output since. Allergies: Coded Allergies: No Known Allergies (Unverified , 12/15/16) COVID-19 Screening Contact w/high risk pt: No Experienced COVID-19 symptoms?: No Medication History Scheduled Aspirin* (Aspirin*), 81 MG ORAL DAILY, (Reported) Benazepril Hcl* (Benazepril Hcl*), 20 MG ORAL EVERY 12 HOURS, (Reported) Docusate Sodium* (Colace*), 100 MG ORAL TWICE A DAY, (Reported) Glipizide* (Glucotrol Xl*), 10 MG ORAL ACBREAKFAST, (Reported) Lactulose (Lactulose*), 30 ML ORAL DAILY Meloxicam* (Mobic*), 7.5 MG ORAL DAILY Metformin Hcl* (Metformin Hcl*), 1,000 MG ORAL DAILY, (Reported) Scheduled PRN Acetaminophen With Codeine (T#3) (Tylenol #3 Tab*), 1 TAB ORAL Q4H PRN for For Pain, (Reported) Albuterol Sulfate* (Albuterol Sulfate Hhn*), 2.5 MG HHN Q4H PRN for Shortness of Breath Hydrocodone/Acetaminophen 5-325* (Hydrocodone/Acetaminophen 5-325*), 1 TAB ORAL Q6H PRN for For Pain Ibuprofen* (Motrin*), 600 MG ORAL Q6H PRN for FOR PAIN, (Reported) Patient History History Provided By: Patient, Medical Record, PMD Healthcare decision maker Resuscitation status Advanced Directive on File Past Medical/Surgical History Past Medical/Surgical History: (1) Upper respiratory infection (2) Bronchospasm (3) Ileus (4) Abdominal pain (5) Diabetes (6) HTN (hypertension) (7) Dyspnea (8) Obesity (BMI 30-39.9) (9) Morbid obesity with BMI of 45.0-49.9, adult (10) Incarcerated ventral hernia (11) Small bowel obstruction Review of Systems Review of Symptoms General ROS: no weight loss or fever Psychological ROS: no depression or mood changes, no memory loss Ophthalmic ROS: no visual changes or eye irritation ENT ROS: no nasal congestion, hearing loss, dizziness Allergy and Immunology ROS: no allergic symptoms or urticaria Hematological and Lymphatic ROS: no swollen glands, unusual bleeding or bruising Endocrine ROS: no polyuria, polydipsia, weight changes, temperature intolerance Respiratory ROS: no cough, shortness of breath, or wheezing Cardiovascular ROS: no chest pain or dyspnea on exertion Gastrointestinal ROS: denies abdominal pain, bright red blood in stool. Musculoskeletal ROS: no myalgias or arthralgias Neurological ROS: no TIA or stroke symptoms Dermatological ROS: no new or changing skin lesions, rashes or pruritis Physical Exam Physical Exam General appearance: alert, cooperative, no distress, appears stated age Head: Normocephalic, without obvious abnormality, atraumatic Eyes: conjunctivae/corneas clear. PERRL, EOM's intact. Fundi benign Throat: Lips, mucosa, and tongue normal. Teeth and gums normal Neck: supple, symmetrical, trachea midline, no adenopathy, thyroid: not enlarged, symmetric, no tenderness/mass/nodules, no carotid bruit and no JVD Lungs: clear to auscultation bilaterally Heart: regular rate and rhythm, S1, S2 normal, no murmur, click, rub or gallop Abdomen: soft, non-tender. Bowel sounds normal. No masses, no organomegaly a periumbilical hernia identified. Reducible. Edges of the hernia identified approximately 3 cm x 3 cm wide. Extremities: extremities normal, atraumatic, no cyanosis or edema Pulses: 2+ and symmetric Skin: Skin color, texture, turgor normal. No rashes or lesions Neurologic: Grossly normal Last 24 Hour Vital Signs Date Time Temp Pulse Resp B/P (MAP) Pulse Ox O2 Delivery O2 Flow Rate FiO2 08/18/20 06:00 98.2 70 15 108/82 (91) 94 08/18/20 05:30 Room Air 08/18/20 04:12 98.6 08/18/20 04:12 98.6 08/18/20 04:10 81 14 129/81 100 Room Air 08/18/20 03:16 59 14 94/48 100 Nasal Cannula 2.0 08/18/20 01:56 98.6 61 14 98/45 98 Room Air 08/18/20 01:56 60 14 Room Air 08/18/20 01:14 97.3 78 16 103/78 (86) 96 Intake and Output 08/17/20 08/18/20 19:00 07:00 Intake Total 1000 ml Balance 1000 ml Intake Oral 0 ml IV Total 1000 ml # Voids 1 Laboratory Tests Test 08/18/20 01:44 08/18/20 04:14 White Blood Count 10.5 K/UL (4.8-10.8) Red Blood Count 4.26 M/UL (4.20-5.40) Hemoglobin 12.3 G/DL (12.0-16.0) Hematocrit 38.3 % (37.0-47.0) Mean Corpuscular Volume 90 FL (80-99) Mean Corpuscular Hemoglobin 28.8 PG (27.0-31.0) Mean Corpuscular Hemoglobin Concent 32.0 G/DL (32.0-36.0) Red Cell Distribution Width 12.7 % (11.6-14.8) Platelet Count 209 K/UL (150-450) Mean Platelet Volume 8.3 FL (6.5-10.1) Neutrophils (%) (Auto) 81.6 % (45.0-75.0) H Lymphocytes (%) (Auto) 11.5 % (20.0-45.0) L Monocytes (%) (Auto) 4.8 % (1.0-10.0) Eosinophils (%) (Auto) 1.3 % (0.0-3.0) Basophils (%) (Auto) 0.8 % (0.0-2.0) Sodium Level 141 MMOL/L (136-145) Potassium Level 4.7 MMOL/L (3.5-5.1) Chloride Level 106 MMOL/L (98-107) Carbon Dioxide Level 26 MMOL/L (21-32) Anion Gap 9 mmol/L (5-15) Blood Urea Nitrogen 31 mg/dL (7-18) H Creatinine 1.4 MG/DL (0.55-1.30) H Estimat Glomerular Filtration Rate 38.1 mL/min (>60) Glucose Level 171 MG/DL (74-106) H Calcium Level 9.4 MG/DL (8.5-10.1) Total Bilirubin 0.2 MG/DL (0.2-1.0) Aspartate Amino Transf (AST/SGOT) 13 U/L (15-37) L Alanine Aminotransferase (ALT/SGPT) 19 U/L (12-78) Alkaline Phosphatase 94 U/L (46-116) Total Protein 7.8 G/DL (6.4-8.2) Albumin 3.8 G/DL (3.4-5.0) Globulin 4.0 g/dL Albumin/Globulin Ratio 0.9 (1.0-2.7) L Lipase 149 U/L (73-393) Urine Color Pale yellow Urine Appearance Clear Urine pH 6 (4.5-8.0) Urine Specific [place] 1.010 (1.005-1.035) Urine Protein Negative (NEGATIVE) Urine Glucose (UA) 4+ (NEGATIVE) H Urine Ketones Negative (NEGATIVE) Urine Blood Negative (NEGATIVE) Urine Nitrite Negative (NEGATIVE) Urine Bilirubin Negative (NEGATIVE) Urine Urobilinogen Normal MG/DL (0.0-1.0) Urine Leukocyte Esterase Negative (NEGATIVE) Height (Feet): 5 Height (Inches): 1.00 Weight (Pounds): 224 Medications Current Medications Medications (Trade) Dose Ordered Sig/Nguyen Route PRN Reason Start Time Stop Time Status Last Admin Dose Admin Acetaminophen (Tylenol) 650 mg Q6H PRN RECTAL Moderate Pain (Pain Scale 4-6) 08/18/20 08:30 09/17/20 08:29 Dextrose (Dextrose 50%) 25 ml Q30M PRN IV Hypoglycemia 08/18/20 08:30 11/16/20 08:29 Dextrose (Dextrose 50%) 50 ml Q30M PRN IV Hypoglycemia 08/18/20 08:30 11/16/20 08:29 Dextrose/Sodium Chloride 1,000 ml @ 50 mls/hr Q20H IV 08/18/20 09:30 09/17/20 09:29 08/18/20 09:35 Heparin Sodium (Porcine) (Heparin 5000 units/ml) 5,000 units EVERY 12 HOURS SUBQ 08/18/20 09:30 10/02/20 09:29 08/18/20 09:37 Hydralazine HCl (Apresoline) 25 mg Q6H PRN ORAL For SBP>180 08/18/20 08:30 11/16/20 08:29 Hydromorphone HCl (Dilaudid) 0.5 mg Q3H PRN IVP Severe Pain (Pain Scale 7-10) 08/18/20 08:30 08/25/20 08:29 08/18/20 09:44 Insulin Aspart (NovoLOG) BEFORE MEALS AND HS SUBQ 08/18/20 11:30 11/16/20 11:29 Ondansetron HCl (Zofran) 4 mg Q6H PRN IVP Nausea & Vomiting 08/18/20 08:30 09/17/20 08:29 Pantoprazole (Protonix) 40 mg DAILY IVP 08/18/20 09:30 09/17/20 09:29 08/18/20 09:35 Sodium Chloride 1,000 ml @ 50 mls/hr Q20H IV 08/18/20 09:30 09/17/20 09:29 08/18/20 09:35 Assessment/Plan Problem List: (1) Morbid obesity with BMI of 45.0-49.9, adult ICD Codes: E66.01 - Morbid (severe) obesity due to excess calories; Z68.42 - Body mass index [BMI] 45.0-49.9, adult SNOMED: 600764734, 707782172, 38617656599139 (2) Upper respiratory infection ICD Codes: J06.9 - Acute upper respiratory infection, unspecified SNOMED: 88442270 (3) Incarcerated ventral hernia ICD Codes: K43.6 - Other and unspecified ventral hernia with obstruction, without gangrene SNOMED: 744143401 (4) Bronchospasm ICD Codes: J98.01 - Acute bronchospasm SNOMED: 0954818 (5) Diabetes ICD Codes: E11.9 - Type 2 diabetes mellitus without complications SNOMED: 90902869 (6) Dyspnea ICD Codes: R06.00 - Dyspnea, unspecified SNOMED: 782065259 (7) Ileus ICD Codes: K56.7 - Ileus, unspecified SNOMED: 919780804 (8) Small bowel obstruction Assessment & Plan: 60-year-old female prior laparoscopic appendectomy has been doing well for approximately 2 years now presents with abdominal pain nausea vomiting identified to have periumbilical hernia with bowel contents which are now reducible. Currently no nausea vomiting fever chills. Labs okay. Abdominal exam benign. Soft nontender nondistended bowel sounds present. States she is not having any pain currently. NG tube placed in the emergency de partment and since has had almost no output. I do long discussion with the patient and her son over the phone. CT findings reviewed. Abdominal exam reviewed. Currently hernia is reducible the hernia edges on the fascia are palpable. She does not seem to be currently obstructed and potential incarcerated hernia has been reduced. NG tube was removed at the bedside given minimal output and clinical examination. We will monitor over the course of the next 24 to 48 hours. Return of bowel function will start diet and plan discharge. Will plan for elective hernia repair which is what the patient and her son had requested if she is able to have a reduced hernia without complication at this time. All questions were answered. Thank you for letting participate patient's care will follow with recommendations ICD Codes: K56.609 - Unspecified intestinal obstruction, unspecified as to partial versus complete obstruction SNOMED: 153749010 (9) Abdominal pain ICD Codes: R10.9 - Unspecified abdominal pain SNOMED: 88632402 (10) HTN (hypertension) ICD Codes: I10 - Essential (primary) hypertension SNOMED: 86714637 (11) Obesity (BMI 30-39.9) ICD Codes: E66.9 - Obesity, unspecified SNOMED: 873654524, 498428390 Primitivo Hart Aug 18, 2020 10:44
[2020-08-18] MEDS: NovoLOG Insulin Flexpen SUBQ SCH ×3 (11:30→20:16)
[2020-08-18] MEDS ORDERED: Albuterol 90mcg Inhaler 8gm INH PRN (12:30)
--- NOTE | 2020-08-18 12:35 | History & Physical ---
History and Physical History & Physicial History and Physical HPI Patient is a 60-year-old female,s/p previous laparoscopic appendectomy in 2019 admitted with incarcerated ventral abdominal hernia, now succesfully reduced,she had c/o acute onset generalized abdominal pain mainly in the upper quadrants,currently this has improved,previous N/V. CT abdomen noted ventral hernia identified but how potential SBO. Currently no nausea vomiting fever chills. No flatus today. Last bowel movement yesterday last flatus yesterday. NG tube was placed in ED,now removed. Allergies: Coded Allergies: No Known Allergies (Unverified , 12/15/16) Past Medical History: Diabetes, Hypertension,Appendicitis,Asthma,Morbid Obesity Past Surgical History: Appendectomy Social History: NC Family History: NC Review of Systems: Negative aside from above Height (Feet): 5 Height (Inches): 1.00 Weight (Pounds): 224 Physical Exam Vital Signs Noted General appearance: WDWN,obese, alert, cooperative, no distress Head: Normocephalic, atraumatic Eyes: conjunctivae/corneas clear. PERRL, EOM's intact. Throat: Moist mm Neck: supple, symmetrical, trachea midline, no adenopathy, thyroid: not enlarged, symmetric, no tenderness/mass/nodules, no carotid bruit and no JVD Lungs: clear to auscultation bilaterally Heart: regular rate and rhythm, S1, S2 normal Abdomen: soft, non-tender. Bowel sounds normal. No masses, no organomegaly a periumbilical hernia identified. Reducible. Extremities: extremities normal, atraumatic, no cyanosis or edema, No rashes or lesions Neurologic: Grossly normal Laboratory Tests noted Test 08/18/20 01:44 08/18/20 04:14 White Blood Count 10.5 K/UL (4.8-10.8) Red Blood Count 4.26 M/UL (4.20-5.40) Hemoglobin 12.3 G/DL (12.0-16.0) Hematocrit 38.3 % (37.0-47.0) Mean Corpuscular Volume 90 FL (80-99) Mean Corpuscular Hemoglobin 28.8 PG (27.0-31.0) Mean Corpuscular Hemoglobin Concent 32.0 G/DL (32.0-36.0) Red Cell Distribution Width 12.7 % (11.6-14.8) Platelet Count 209 K/UL (150-450) Mean Platelet Volume 8.3 FL (6.5-10.1) Neutrophils (%) (Auto) 81.6 % (45.0-75.0) H Lymphocytes (%) (Auto) 11.5 % (20.0-45.0) L Monocytes (%) (Auto) 4.8 % (1.0-10.0) Eosinophils (%) (Auto) 1.3 % (0.0-3.0) Basophils (%) (Auto) 0.8 % (0.0-2.0) Sodium Level 141 MMOL/L (136-145) Potassium Level 4.7 MMOL/L (3.5-5.1) Chloride Level 106 MMOL/L (98-107) Carbon Dioxide Level 26 MMOL/L (21-32) Anion Gap 9 mmol/L (5-15) Blood Urea Nitrogen 31 mg/dL (7-18) H Creatinine 1.4 MG/DL (0.55-1.30) H Estimat Glomerular Filtration Rate 38.1 mL/min (>60) Glucose Level 171 MG/DL (74-106) H Calcium Level 9.4 MG/DL (8.5-10.1) Total Bilirubin 0.2 MG/DL (0.2-1.0) Aspartate Amino Transf (AST/SGOT) 13 U/L (15-37) L Alanine Aminotransferase (ALT/SGPT) 19 U/L (12-78) Alkaline Phosphatase 94 U/L (46-116) Total Protein 7.8 G/DL (6.4-8.2) Albumin 3.8 G/DL (3.4-5.0) Globulin 4.0 g/dL Albumin/Globulin Ratio 0.9 (1.0-2.7) L Lipase 149 U/L (73-393) Urine Color Pale yellow Urine Appearance Clear Urine pH 6 (4.5-8.0) Urine Specific [place] 1.010 (1.005-1.035) Urine Protein Negative (NEGATIVE) Urine Glucose (UA) 4+ (NEGATIVE) H Urine Ketones Negative (NEGATIVE) Urine Blood Negative (NEGATIVE) Urine Nitrite Negative (NEGATIVE) Urine Bilirubin Negative (NEGATIVE) Urine Urobilinogen Normal MG/DL (0.0-1.0) Urine Leukocyte Esterase Negative (NEGATIVE) Imaging noted Assessment/Plan Small bowel Obstruction Incarcerated Ventral Hernia now reduced Morbid Obesity Hypertension Diabetes Asthma Plan: IVF ISS Advance diet per Surgery as NGT DC PTAMedications PPX Monitor labs Sudeep Leija MD Aug 18, 2020 12:35
[2020-08-18] MEDS ORDERED: D5NS 1000ml IV ONE (13:16)
--- NOTE | 2020-08-18 19:12 | NUR ---
NURSE HAND-OFF: Important Events on Shift:[] Patient Status: [] Diet: [] Pending Orders: [] Pending Results/Labs:[] Pending MD notification:[] Latest Vital Signs: Temperature 97.8 , Pulse 55 , B/P 122 /65 , Respiratory Rate 15 , O2 SAT 94 , Room Air, O2 Flow Rate 2.0 . Vital Sign Comment: [] Latest Michael Fall Score: 45 Fall Risk: High Risk Safety Measures: Call light Within Reach, Bed Alarm Zone 1, Side Rails Side Rails x2, Bed position Low and Locked. Fall Precautions: Yellow Socks Report given to [JERI Oakes].
--- NOTE | 2020-08-18 19:26 | NUR ---
NURSE NOTES: RECEIVED PATIENT LYING IN BED, AWAKE, ALERT/ORIENTED X4, ABLE TO VERBALIZE NEEDS IN BERMUDIAN, DENIES PAIN. INCARCERATED VENTRAL HERNIA REDUCED/NO PLAN FOR SURGERY PER DR. SCHROEDER. NO SIGNS AND SYMPTOMS OF ACUTE CARDIO RESPIRATORY DISTRESS/SHORTNESS OF BREATH, DENIES CHEST PAIN, NOTED WITH TRACE EDEMA, NON PITTING. ABDOMEN ROUND,SOFT,NON TENDER, NPO EXCEPT ICE CHIPS AND MEDS. IV INTACT TO LEFT HAND/GAUGE 22, NO REDNESS/SWELLING, TOLERATING IV FLUIDS. SIDE RAILS UP X2, BED IN LOWEST POSITION FOR SAFETY, ENCOURAGED PATIENT TO UTILIZE CALL LIGHT FOR ASSISTANCE, VERBALIZED UNDERSTANDING, CONTINUE WITH CURRENT PLAN OF CARE, DCP ONGOING. NAD.
[2020-08-19] VITALS: BP 101/64
[2020-08-19 04:00] VITALS: BP 123/51
[2020-08-19] MEDS: NovoLOG Insulin Flexpen SUBQ SCH ×4 (06:01→21:00)
--- NOTE | 2020-08-19 07:15 | NUR ---
NURSE HAND-OFF: Important Events on Shift:[RESTED WELL THROUGHOUT THE NIGHT, PASSING GAS, NO BOWEL MOVEMENT] Patient Status: [FULL CODE, NAD] Diet: [NPO EXCEPT ICE CHIPS/MEDS] Pending Orders: [ABDOMINAL XRAY, AM LABS CMP, CBC 08/19 - 08/21, CBC 08/22-08/23] Pending Results/Labs:[] Pending MD notification:[] Latest Vital Signs: Temperature 98.2 , Pulse 65 , B/P 123 /51 , Respiratory Rate 18 , O2 SAT 94 , Room Air, O2 Flow Rate 2.0 . Vital Sign Comment: [STABLE, AFEBRILE] Latest Michael Fall Score: 45 Fall Risk: High Risk Safety Measures: Call light Within Reach, Bed Alarm Zone 1, Side Rails Side Rails x2, Bed position Low and Locked. Fall Precautions: Yellow Socks Report given to [VARGHESE,RN/CN].
[2020-08-19 08:00] VITALS: BP 133/57
--- NOTE | 2020-08-19 09:52 | Diagnostic Imaging Report ---
EXAM: XR Abdomen, 2 Views CLINICAL HISTORY: F/U TECHNIQUE: Frontal view of the abdomen/pelvis with upright view of the abdomen. COMPARISON: No relevant prior studies available. FINDINGS: Intraperitoneal space: No free air identified. Gastrointestinal tract: The bowel gas pattern is unremarkable without obstruction. There is mild constipation. Bones/joints: Unremarkable. IMPRESSION: The bowel gas pattern is unremarkable without obstruction. There is mild constipation. No free air identified.
[2020-08-19] MEDS: Aspirin Baby 81mg ORAL SCH (09:57)
[2020-08-19] MEDS: Pantoprazole Inj IVP SCH (09:57)
[2020-08-19] MEDS: Heparin 5000 units/ml inj SUBQ SCH ×2 (10:00→21:20)
[2020-08-19 10:28] LABS: BASOPHILS % (AUTO) 1.2 % (0.0-2.0); EOSINOPHILS % (AUTO) 3.2 % (0.0-3.0); HEMATOCRIT 34.7 % (37.0-47.0); HEMOGLOBIN 11.2 G/DL (12.0-16.0); LYMPHOCYTES % (AUTO) 21.5 % (20.0-45.0); MEAN CORPUSCULAR VOLUME 90 FL (80-99); MONOCYTES % (AUTO) 6.1 % (1.0-10.0); PLATELET COUNT 193 K/UL (150-450); RED BLOOD COUNT 3.86 M/UL (4.20-5.40); RED CELL DISTRIBUTION WIDTH 12.4 % (11.6-14.8); WHITE BLOOD COUNT 6.2 K/UL (4.8-10.8)
[2020-08-19 10:49] LABS: ALANINE AMINOTRANSFERASE 21 U/L (12-78); ALBUMIN 3.3 G/DL (3.4-5.0); ALBUMIN/GLOBULIN RATIO 0.8 (1.0-2.7); ALKALINE PHOSPHATASE 73 U/L (46-116); ANION GAP 9 mmol/L (5-15); ASPARTATE AMINO TRANSFERASE 16 U/L (15-37); BILIRUBIN,TOTAL 0.4 MG/DL (0.2-1.0); BLOOD UREA NITROGEN 15 mg/dL (7-18); CALCIUM 9.4 MG/DL (8.5-10.1); CARBON DIOXIDE 26 MMOL/L (21-32); CHLORIDE 111 MMOL/L (98-107); CREATININE 0.9 MG/DL (0.55-1.30); POTASSIUM 3.9 MMOL/L (3.5-5.1); SODIUM 146 MMOL/L (136-145)
--- NOTE | 2020-08-19 11:01 | Surgery Progress Note ---
Surgery Progress Note Subjective Additional Comments labs okay no pain no n/v/f/c kub okay non obstructive passing flatus Objective Last 24 Hour Vital Signs Date Time Temp Pulse Resp B/P (MAP) Pulse Ox O2 Delivery O2 Flow Rate FiO2 08/19/20 09:56 133/57 08/19/20 08:00 96.8 55 18 133/57 (82) 94 08/19/20 04:00 98.2 65 18 123/51 (75) 94 08/19/20 00:00 97.6 58 16 101/64 (76) 95 08/18/20 21:02 Room Air 08/18/20 20:00 97.3 53 18 119/58 (78) 96 08/18/20 16:00 97.8 55 15 122/65 (84) 94 08/18/20 11:36 98.0 61 15 123/52 (75) 95 I&O Intake and Output 08/18/20 08/19/20 19:00 07:00 Intake Total 1000 ml Balance 1000 ml IV Total 1000 ml # Voids 3 3 Cardiovascular: RSR Respiratory: clear Abdomen: soft, flat, non-tender, present bowel sounds, other - reducible hernia , non-distended Extremities: no edema, no tenderness, no cyanosis Laboratory Tests Test 08/18/20 11:33 08/18/20 16:41 08/18/20 20:16 08/19/20 05:59 POC Whole Blood Glucose 106 MG/DL (74-106) 96 MG/DL (74-106) Pending Pending Test 08/19/20 10:00 White Blood Count 6.2 K/UL (4.8-10.8) Red Blood Count 3.86 M/UL (4.20-5.40) L Hemoglobin 11.2 G/DL (12.0-16.0) L Hematocrit 34.7 % (37.0-47.0) L Mean Corpuscular Volume 90 FL (80-99) Mean Corpuscular Hemoglobin 29.0 PG (27.0-31.0) Mean Corpuscular Hemoglobin Concent 32.3 G/DL (32.0-36.0) Red Cell Distribution Width 12.4 % (11.6-14.8) Platelet Count 193 K/UL (150-450) Mean Platelet Volume 8.8 FL (6.5-10.1) Neutrophils (%) (Auto) 68.0 % (45.0-75.0) Lymphocytes (%) (Auto) 21.5 % (20.0-45.0) Monocytes (%) (Auto) 6.1 % (1.0-10.0) Eosinophils (%) (Auto) 3.2 % (0.0-3.0) H Basophils (%) (Auto) 1.2 % (0.0-2.0) Sodium Level 146 MMOL/L (136-145) H Potassium Level 3.9 MMOL/L (3.5-5.1) Chloride Level 111 MMOL/L (98-107) H Carbon Dioxide Level 26 MMOL/L (21-32) Anion Gap 9 mmol/L (5-15) Blood Urea Nitrogen 15 mg/dL (7-18) Creatinine 0.9 MG/DL (0.55-1.30) Estimat Glomerular Filtration Rate > 60 mL/min (>60) Glucose Level 91 MG/DL (74-106) Calcium Level 9.4 MG/DL (8.5-10.1) Total Bilirubin 0.4 MG/DL (0.2-1.0) Aspartate Amino Transf (AST/SGOT) 16 U/L (15-37) Alanine Aminotransferase (ALT/SGPT) 21 U/L (12-78) Alkaline Phosphatase 73 U/L (46-116) Total Protein 7.2 G/DL (6.4-8.2) Albumin 3.3 G/DL (3.4-5.0) L Globulin 3.9 g/dL Albumin/Globulin Ratio 0.8 (1.0-2.7) L Plan Problems: (1) Morbid obesity with BMI of 45.0-49.9, adult (2) Upper respiratory infection (3) Incarcerated ventral hernia (4) Bronchospasm (5) Diabetes (6) Dyspnea (7) Ileus (8) Small bowel obstruction Assessment & Plan: 60-year-old female prior laparoscopic appendectomy has been doing well for approximately 2 years now presents with abdominal pain nausea vomiting identified to have periumbilical hernia with bowel contents which are now reducible. Currently no nausea vomiting fever chills. Labs okay. Abdominal exam benign. Soft nontender nondistended bowel sounds present. States she is not having any pain currently. NG tube placed in the emergency department and since has had almost no output. I do long discussion with the patient and her son over the phone. CT findings reviewed. Abdominal exam reviewed. Currently hernia is reducible the hernia edges on the fascia are palpable. She does not seem to be currently obstructed and potential incarcerated hernia has been reduced. NG tube was removed at the bedside given minimal output and clinical examination. We will monitor over the course of the next 24 to 48 hours. Return of bowel function will start diet and plan discharge. Will plan for elective hernia repair which is what the patient and her son had requested if she is able to have a reduced hernia without complication at this time. All questions were answered. Thank you for letting participate patient's care will follow with recommendations bowel function returning kub okay no pain start trial diet (9) Abdominal pain (10) HTN (hypertension) (11) Obesity (BMI 30-39.9) Primitivo Hart Aug 19, 2020 11:01
[2020-08-19 12:00] VITALS: BP 129/65
--- NOTE | 2020-08-19 14:12 | NUR ---
CASE MANAGEMENT: INITIAL REVIEW 60 YO F PRESENTED TO OUR ED FROM HOME CC: ABD PAIN PMHx: diabetes and hypertension SI:INCARCERATED HERNIA. SBO. VS: T 97.3 HR 78 RR 16 B/P 103/78 SATS 96% ON RA LABS: BUN 31 CR 1.4 GLU 171 AST 13 IS: ZOFRAN IV X1 MORPHINE IV X2 NS BOLUS X2 KUB IMPRESSION: Findings are suspicious for an incarcerated hernia resulting in a small bowel obstruction. PATIENT ADMITTED FROM MED/SURG 08/18/2020 @ 0402 DCP: HOME PLAN OF CARE: start trial diet CONCURRENT REVIEW FOR 08/19/2020 SI:INCARCERATED HERNIA. SBO. VS: T 96.8 HR 55 RR 18 B/P 133/57 SATS 94% ON RA LABS: NA 146 CL 111 IS:NS @ 100 mL/HR LOTENSIN PO BID ASA PO QD INSULIN ASPART SUBQ AC/HS MED/SURG
[2020-08-19 16:00] VITALS: BP 152/72
--- NOTE | 2020-08-19 16:11 | Pulmonology Progress Note ---
Subjective ROS Limited/Unobtainable: No Allergies: Coded Allergies: No Known Allergies (Unverified , 12/15/16) Objective Last 24 Hour Vital Signs Date Time Temp Pulse Resp B/P (MAP) Pulse Ox O2 Delivery O2 Flow Rate FiO2 08/19/20 12:00 98.4 65 17 129/65 (86) 95 08/19/20 09:56 133/57 08/19/20 09:00 Room Air 08/19/20 08:00 96.8 55 18 133/57 (82) 94 08/19/20 04:00 98.2 65 18 123/51 (75) 94 08/19/20 00:00 97.6 58 16 101/64 (76) 95 08/18/20 21:02 Room Air 08/18/20 20:00 97.3 53 18 119/58 (78) 96 Intake and Output 08/18/20 08/19/20 19:00 07:00 Intake Total 1000 ml Balance 1000 ml IV Total 1000 ml # Voids 3 3 Laboratory Tests 08/18/20 16:41: POC Whole Blood Glucose 96 08/18/20 20:16: POC Whole Blood Glucose [Pending] 08/19/20 05:59: POC Whole Blood Glucose [Pending] 08/19/20 10:00: White Blood Count 6.2, Red Blood Count 3.86L, Hemoglobin 11.2L, Hematocrit 34.7L , Mean Corpuscular Volume 90, Mean Corpuscular Hemoglobin 29.0, Mean Corpuscular Hemoglobin Concent 32.3, Red Cell Distribution Width 12.4, Platelet Count 193, Mean Platelet Volume 8.8, Neutrophils (%) (Auto) 68.0, Lymphocytes (%) (Auto) 21.5, Monocytes (%) (Auto) 6.1, Eosinophils (%) (Auto) 3.2H, Basophils (%) (Auto) 1.2, Sodium Level 146H, Potassium Level 3.9, Chloride Level 111H, Carbon Dioxide Level 26, Anion Gap 9, Blood Urea Nitrogen 15, Creatinine 0.9, Estimat Glomerular Filtration Rate > 60, Glucose Level 91, Calcium Level 9.4, Total Bilirubin 0.4, Aspartate Amino Transf (AST/SGOT) 16, Alanine Aminotransferase (ALT/SGPT) 21, Alkaline Phosphatase 73, Total Protein 7.2, Albumin 3.3L, Globulin 3.9, Albumin/Globulin Ratio 0.8L 08/19/20 11:46: POC Whole Blood Glucose 109H Current Medications Medications (Trade) Dose Ordered Sig/Nguyen Route PRN Reason Start Time Stop Time Status Last Admin Dose Admin Acetaminophen (Tylenol) 650 mg Q6H PRN RECTAL Moderate Pain (Pain Scale 4-6) 08/18/20 08:30 09/17/20 08:29 Albuterol Sulfate (Proventil MDI) 2 puff Q4H PRN INH Shortness of Breath 08/18/20 12:30 11/16/20 12:29 Aspirin (ASA) 81 mg DAILY ORAL 08/19/20 09:00 10/03/20 08:59 08/19/20 09:57 Benazepril HCl (Lotensin) 20 mg BID ORAL 08/19/20 09:00 09/18/20 08:59 08/19/20 09:56 Dextrose (Dextrose 50%) 25 ml Q30M PRN IV Hypoglycemia 08/18/20 08:30 11/16/20 08:29 Dextrose (Dextrose 50%) 50 ml Q30M PRN IV Hypoglycemia 08/18/20 08:30 11/16/20 08:29 Heparin Sodium (Porcine) (Heparin 5000 units/ml) 5,000 units EVERY 12 HOURS SUBQ 08/18/20 09:30 10/02/20 09:29 08/19/20 10:00 Hydralazine HCl (Apresoline) 25 mg Q6H PRN ORAL For SBP>180 08/18/20 08:30 11/16/20 08:29 Hydromorphone HCl (Dilaudid) 0.5 mg Q3H PRN IVP Severe Pain (Pain Scale 7-10) 08/18/20 08:30 08/25/20 08:29 08/18/20 09:44 Insulin Aspart (NovoLOG) BEFORE MEALS AND HS SUBQ 08/18/20 11:30 11/16/20 11:29 Ondansetron HCl (Zofran) 4 mg Q6H PRN IVP Nausea & Vomiting 08/18/20 08:30 09/17/20 08:29 Pantoprazole (Protonix) 40 mg DAILY IVP 08/18/20 09:30 09/17/20 09:29 08/19/20 09:57 Sodium Chloride 1,000 ml @ 100 mls/hr Q10H IV 08/18/20 09:30 09/17/20 09:29 08/19/20 06:27 Assessment/Plan Assessment/Plan Progress Note HPI Patient is a 60-year-old female,s/p previous laparoscopic appendectomy in 2019 admitted with incarcerated ventral abdominal hernia, now succesfully reduced,she had c/o acute onset generalized abdominal pain mainly in the upper quadrants,currently this has improved,previous N/V. CT abdomen noted ventral hernia identified but how potential SBO. Currently no nausea vomiting fever c hills. NG tube was placed in ED,now removed. Passing flatus,tolerating diet Allergies: Coded Allergies: No Known Allergies (Unverified , 12/15/16) Past Medical History: Diabetes, Hypertension,Appendicitis,Asthma,Morbid Obesity Past Surgical History: Appendectomy Social History: [place] Family History: [place] Review of Systems: Negative aside from above Height (Feet): 5 Height (Inches): 1.00 Weight (Pounds): 224 Physical Exam Vital Signs Noted General appearance: WDWN,obese, alert, cooperative, no distress Head: Normocephalic, atraumatic Eyes: conjunctivae/corneas clear. PERRL Throat: Moist mm Neck: supple, symmetrical, trachea midline, no adenopathy, thyroid: not enlarged, symmetric, no tenderness/mass/nodules, no carotid bruit and no JVD Lungs: clear to auscultation bilaterally Heart: regular rate and rhythm, S1, S2 normal Abdomen: soft, non-tender. Bowel sounds normal. 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
--- NOTE | 2020-08-19 19:11 | NUR ---
NURSE HAND-OFF: Important Events on Shift:[] Patient Status: [] Diet: [Clear liq] Pending Orders: [] Pending Results/Labs:[] Pending MD notification:[] Latest Vital Signs: Temperature 98.5 , Pulse 59 , B/P 152 /72 , Respiratory Rate 18 , O2 SAT 96 , Room Air, O2 Flow Rate 2.0 . Vital Sign Comment: [] Latest Michael Fall Score: 45 Fall Risk: High Risk Safety Measures: Call light Within Reach, Bed Alarm Zone 1, Side Rails Side Rails x2, Bed position Low and Locked. Fall Precautions: Yellow Socks Report given to [JERI Valdez].
[2020-08-19 20:00] VITALS: BP 131/57
--- NOTE | 2020-08-19 20:00 | NUR ---
NURSE NOTES: RECEIVED PATIENT LYING IN BED, AWAKE, ALERT/ORIENTED X4, GEORGIAN SPEAKING, ABLE TO VERBALIZE NEEDS IN [place], DENIES PAIN. NO SIGNS AND SYMPTOMS OF ACUTE CARDIO RESPIRATORY DISTRESS/SHORTNESS OF BREATH, DENIES CHEST PAIN. IV INTACT TO RIGHT HAND/GAUGE 24, NO REDNESS/SWELLING NOTED, SALINE LOCK. ABDOMEN ROUND/NON TENDER/AUDIBLE BOWEL SOUNDS, PASSING GAS, NO BOWEL MOVEMENT, TOLERATING CLEAR LIQUID , DENIES ABDOMINAL PAIN. SIDE RAILS UP X2 FOR MOBILITY, BED IN LOWEST POSITION FOR SAFETY, ENCOURAGED PATIENT TO UTILIZE CALL LIGHT FOR ASSISTANCE, VERBALIZED UNDERSTANDING, CONTINUE WITH CURRENT PLAN OF CARE. NAD. DCP HOME 08/20/20, PATIENT AWARE.
[2020-08-20] VITALS: BP 106/50
[2020-08-20 04:00] VITALS: BP 102/51
[2020-08-20] MEDS: NovoLOG Insulin Flexpen SUBQ SCH ×2 (06:28→11:30)
[2020-08-20 07:03] LABS: BASOPHILS % (AUTO) 1.3 % (0.0-2.0); EOSINOPHILS % (AUTO) 3.7 % (0.0-3.0); HEMATOCRIT 34.3 % (37.0-47.0); HEMOGLOBIN 11.3 G/DL (12.0-16.0); LYMPHOCYTES % (AUTO) 24.9 % (20.0-45.0); MEAN CORPUSCULAR VOLUME 89 FL (80-99); MONOCYTES % (AUTO) 6.7 % (1.0-10.0); NEUTROPHILS % (AUTO) 63.5 % (45.0-75.0); PLATELET COUNT 198 K/UL (150-450); RED BLOOD COUNT 3.84 M/UL (4.20-5.40); RED CELL DISTRIBUTION WIDTH 12.4 % (11.6-14.8); WHITE BLOOD COUNT 5.5 K/UL (4.8-10.8)
[2020-08-20 07:22] LABS: ALBUMIN 3.2 G/DL (3.4-5.0); ALBUMIN/GLOBULIN RATIO 0.8 (1.0-2.7); BILIRUBIN,TOTAL 0.4 MG/DL (0.2-1.0); CALCIUM 9.1 MG/DL (8.5-10.1); POTASSIUM 3.8 MMOL/L (3.5-5.1)
--- NOTE | 2020-08-20 07:30 | NUR ---
NURSE HAND-OFF: Important Events on Shift:[RESTED WELL THROUGHOUT THE NIGHT, NAD. PASSING GAS, NO BOWEL MOVEMENT] Patient Status: [FULL CODE, STABLE] Diet: [CLEAR LIQUID DIET, TOLERATED WELL] Pending Orders: [AM LABS] Pending Results/Labs:[] Pending MD notification:[] Latest Vital Signs: Temperature 98.4 , Pulse 61 , B/P 102 /51 , Respiratory Rate 18 , O2 SAT 96 , Room Air, O2 Flow Rate 2.0 . Vital Sign Comment: [STABLE, AFEBRILE THROUGHOUT THE NIGHT] Latest Michael Fall Score: 45 Fall Risk: High Risk Safety Measures: Call light Within Reach, Bed Alarm Zone 1, Side Rails Side Rails x2, Bed position Low and Locked. Fall Precautions: Yellow Socks Report given to [JAZ MONAHAN].
[2020-08-20 08:00] VITALS: BP 129/80
--- NOTE | 2020-08-20 08:00 | NUR ---
NURSE NOTES: Pt lying in bed w/bed in lowest position and call light within reach. Pt A&Ox4, VSS, and in no apparent distress. IV site intact/asymptomatic w/IVF infusing and skin intact. Pt tolerating clear liquid diet well; plan is for her to D/C home today. Will continue to monitor.
[2020-08-20] MEDS ORDERED: HydrALAZINE 50mg tab ORAL PRN (08:15)
--- NOTE | 2020-08-20 10:17 | General Progress Note ---
Subjective Allergies: Coded Allergies: No Known Allergies (Unverified , 12/15/16) Subjective feeling well wants to advance diet Objective Last 24 Hour Vital Signs Date Time Temp Pulse Resp B/P (MAP) Pulse Ox O2 Delivery O2 Flow Rate FiO2 08/20/20 08:00 98.4 61 18 129/80 (96) 94 08/20/20 04:00 98.4 61 18 102/51 (68) 96 08/20/20 00:00 98.5 68 18 106/50 (68) 99 08/19/20 21:00 Room Air 08/19/20 20:00 98.6 60 18 131/57 (81) 96 08/19/20 17:36 152/72 08/19/20 16:00 98.5 59 18 152/72 (98) 96 08/19/20 12:00 98.4 65 17 129/65 (86) 95 Intake and Output 08/19/20 08/20/20 19:00 07:00 Intake Total 1360 ml 1280 ml Balance 1360 ml 1280 ml Intake Oral 360 ml 480 ml IV Total 1000 ml 800 ml # Voids 3 4 Laboratory Tests 08/19/20 11:46: POC Whole Blood Glucose 109H 08/19/20 17:34: POC Whole Blood Glucose [Pending] 08/19/20 21:15: POC Whole Blood Glucose [Pending] 08/20/20 06:25: White Blood Count 5.5, Red Blood Count 3.84L, Hemoglobin 11.3L, Hematocrit 34.3L , Mean Corpuscular Volume 89, Mean Corpuscular Hemoglobin 29.3, Mean Corpuscular Hemoglobin Concent 32.9, Red Cell Distribution Width 12.4, Platelet Count 198, Mean Platelet Volume 8.5, Neutrophils (%) (Auto) 63.5, Lymphocytes (%) (Auto) 24.9, Monocytes (%) (Auto) 6.7, Eosinophils (%) (Auto) 3.7H, Basophils (%) (Auto) 1.3, Sodium Level 146H, Potassium Level 3.8, Chloride Level 110H, Carbon Dioxide Level 28, Anion Gap 8, Blood Urea Nitrogen 13, Creatinine 1.0, Estimat Glomerular Filtration Rate 56.2, Glucose Level 120H, Calcium Level 9.1, Total Bilirubin 0.4, Aspartate Amino Transf (AST/SGOT) 15, Alanine Aminotransferase (ALT/SGPT) 29, Alkaline Phosphatase 68, Total Protein 7.0, Albumin 3.2L, Globulin 3.8, Albumin/Globulin Ratio 0.8L 08/20/20 06:27: POC Whole Blood Glucose [Pending] 08/20/20 06:57: POC Whole Blood Glucose 318H Height (Feet): 5 Height (Inches): 1.00 Weight (Pounds): 224 Objective WDWN NAD clear breath sounds bilaterally without rhonchi or wheeze [id number] without MRG NABS nontender no HSM no CCE nonfocal Assessment/Plan Assessment/Plan: Small bowel Obstruction Incarcerated Ventral Hernia now reduced Morbid Obesity Hypertension Diabetes Asthma Plan: advance diet dc per surgery discussed dc plans impression, plan, and exam edited and reviewed in detail care discussed with León Santo MD Aug 20, 2020 10:17
[2020-08-20] MEDS: Pantoprazole Inj IVP SCH (10:22)
[2020-08-20] MEDS: Aspirin Baby 81mg ORAL SCH (10:22)
[2020-08-20] MEDS: Heparin 5000 units/ml inj SUBQ SCH (10:23)
--- NOTE | 2020-08-20 11:28 | Surgery Progress Note ---
Surgery Progress Note Subjective Symptoms: improved, tolerating diet, passing flatus Objective Last 24 Hour Vital Signs Date Time Temp Pulse Resp B/P (MAP) Pulse Ox O2 Delivery O2 Flow Rate FiO2 08/20/20 10:21 129/80 08/20/20 09:00 Room Air 08/20/20 08:00 98.4 61 18 129/80 (96) 94 08/20/20 04:00 98.4 61 18 102/51 (68) 96 08/20/20 00:00 98.5 68 18 106/50 (68) 99 08/19/20 21:00 Room Air 08/19/20 20:00 98.6 60 18 131/57 (81) 96 08/19/20 17:36 152/72 08/19/20 16:00 98.5 59 18 152/72 (98) 96 08/19/20 12:00 98.4 65 17 129/65 (86) 95 I&O Intake and Output 08/19/20 08/20/20 19:00 07:00 Intake Total 1360 ml 1280 ml Balance 1360 ml 1280 ml Intake Oral 360 ml 480 ml IV Total 1000 ml 800 ml # Voids 3 4 Cardiovascular: RSR Respiratory: clear Abdomen: soft, flat, non-tender, present bowel sounds, non-distended Extremities: no edema, no tenderness, no cyanosis Laboratory Tests Test 08/19/20 11:46 08/19/20 17:34 08/19/20 21:15 08/20/20 06:25 POC Whole Blood Glucose 109 MG/DL (74-106) H Pending Pending White Blood Count 5.5 K/UL (4.8-10.8) Red Blood Count 3.84 M/UL (4.20-5.40) L Hemoglobin 11.3 G/DL (12.0-16.0) L Hematocrit 34.3 % (37.0-47.0) L Mean Corpuscular Volume 89 FL (80-99) Mean Corpuscular Hemoglobin 29.3 PG (27.0-31.0) Mean Corpuscular Hemoglobin Concent 32.9 G/DL (32.0-36.0) Red Cell Distribution Width 12.4 % (11.6-14.8) Platelet Count 198 K/UL (150-450) Mean Platelet Volume 8.5 FL (6.5-10.1) Neutrophils (%) (Auto) 63.5 % (45.0-75.0) Lymphocytes (%) (Auto) 24.9 % (20.0-45.0) Monocytes (%) (Auto) 6.7 % (1.0-10.0) Eosinophils (%) (Auto) 3.7 % (0.0-3.0) H Basophils (%) (Auto) 1.3 % (0.0-2.0) Sodium Level 146 MMOL/L (136-145) H Potassium Level 3.8 MMOL/L (3.5-5.1) Chloride Level 110 MMOL/L (98-107) H Carbon Dioxide Level 28 MMOL/L (21-32) Anion Gap 8 mmol/L (5-15) Blood Urea Nitrogen 13 mg/dL (7-18) Creatinine 1.0 MG/DL (0.55-1.30) Estimat Glomerular Filtration Rate 56.2 mL/min (>60) Glucose Level 120 MG/DL (74-106) H Calcium Level 9.1 MG/DL (8.5-10.1) Total Bilirubin 0.4 MG/DL (0.2-1.0) Aspartate Amino Transf (AST/SGOT) 15 U/L (15-37) Alanine Aminotransferase (ALT/SGPT) 29 U/L (12-78) Alkaline Phosphatase 68 U/L (46-116) Total Protein 7.0 G/DL (6.4-8.2) Albumin 3.2 G/DL (3.4-5.0) L Globulin 3.8 g/dL Albumin/Globulin Ratio 0.8 (1.0-2.7) L Test 08/20/20 06:27 08/20/20 06:57 POC Whole Blood Glucose Pending 318 MG/DL (74-106) H Plan Problems: (1) Morbid obesity with BMI of 45.0-49.9, adult (2) Upper respiratory infection (3) Incarcerated ventral hernia (4) Bronchospasm (5) Diabetes (6) Dyspnea (7) Ileus (8) Small bowel obstruction Assessment & Plan: 60-year-old female prior laparoscopic appendectomy has been doing well for approximately 2 years now presents with abdominal pain nausea vomiting identified to have periumbilical hernia with bowel contents which are now reducible. Currently no nausea vomiting fever chills. Labs okay. Abdominal exam benign. Soft nontender nondistended bowel sounds present. States she is not having any pain currently. NG tube placed in the emergency department and since has had almost no output. I do long discussion with the patient and her son over the phone. CT findings reviewed. Abdominal exam reviewed. Currently hernia is reducible the hernia edges on the fascia are palpable. She does not seem to be currently obstructed and potential incarcerated hernia has been reduced. NG tube was removed at the bedside given minimal output and clinical examination. We will monitor over the course of the next 24 to 48 hours. Return of bowel function will start diet and plan discharge. Will plan for elective hernia repair which is what the patient and her son had requested if she is able to have a reduced hernia without complication at this time. All questions were answered. Thank you for letting participate patient's care will follow with recommendations bowel function returning kub okay no pain start trial diet Tolerating diet passing flatus return of bowel function no nausea fever chills pain is been resolved for greater than 48 hours no complaints. Hernia is easily reducible. I long session with the patient regards to her care plan. She does not need emergency surgery for hernias is reducible and she does not have an obstruction but do recommend hernia being repaired. Recommend medical optimization prior. Weight loss diet exercise glucose control and once optimized patient will follow up with her PCP to get surgical referral outpatient elective hernia repair. Okay to discharge from surgical standpoint. (9) Abdominal pain (10) HTN (hypertension) (11) Obesity (BMI 30-39.9) Primitivo Hart Aug 20, 2020 11:28
[2020-08-20 12:00] VITALS: BP 142/69
--- NOTE | 2020-08-20 14:06 | NUR ---
NURSE NOTES: Pt escorted downstairs by MEDICAL SALES ASSOCIATE in stable condition and w/all belongings accounted for. Provided pt D/C summary and removed ID wristband/IV before D/C; instructed pt to f/u w/primary MD following hospital discharge.
--- NOTE | 2020-08-20 17:33 | NUR ---
INSURANCE CLINICALS/ DC INSTRUCTIONS FAXED TO [facility] FX [phone] PH [phone] OPT 3
--- NOTE | 2020-08-21 15:12 | Discharge Summary ---
Discharge Summary Discharge Summary _ Date of admission: 08/18/2020 Date of discharge: 08/20/[address] Rasheed History of Present Illness and Brief Hospital Course Ms. Pickard is a 60-year-old female with past medical history of diabetes mellitus and hypertension, who presented to ER for evaluation of abdominal pain x3 hours. Abdomen/pelvis CT was concerning for incarcerated hernia resulting in a small bowel obstruction. Because of her body habitus and large pannus, it was unable to tell whether the hernia was reducible or not. Patient was placed on a NG tube and was admitted to the hospital for further management. Since admission, patient only had a minimal output through the NG tube. NG tube was removed. Her hernia was reducible. Patient had a return of bowel function and was tolerating diet. She did not need emergency surgery for hernia. Patient was recommended to have elective hernia repair. Patient was also recommended to undergo medical optimization prior to the surgery including weight loss, diet, exercise, and glucose control. Patient was instructed to follow-up with her PCP to get a surgical referral as an outpatient for an elective hernia repair. Patient was medically stable for discharge and was discharged home on 08/20/2020. Consultants: Surgery Dr. Hart Discharge Condition Improved and stable Discharge Activity As tolerated Discharge Diet Regular Final diagnoses Morbid obesity with BMI of 42.3 Incarcerated ventral hernia, now reduced Asthma Diabetes mellitus Small bowel obstruction Hypertension I have been assigned to dictate discharge summary for this account. I was not involved in the patient's management Porter Mcmahon Aug 21, 2020 15:12
== END 2020-08-20 14:04 | disposition home or self-care (01) | DRG 254 ==
LOC: EMR 01:32 → 4E 04:02 → EDBEDREQ 04:39
DX: K43.6 Other and unspecified ventral hernia with obstruction, without gangrene (principal); E66.01 Morbid (severe) obesity due to excess calories; Z68.41 Body mass index [BMI] 40.0-44.9, adult; I10 Essential (primary) hypertension; J06.9 Acute upper respiratory infection, unspecified; E11.9 Type 2 diabetes mellitus without complications; J45.909 Unspecified asthma, uncomplicated
CPT/HCPCS: 36415; 74018; 74176; 80053; 81003; 82962; 83690; 85025; 96361; 96374; 96375; 96376; 99285; J1815; J2405; J7030

== ENCOUNTER 2020-09-10 09:19 | Emergency (ER) | payer MEDICAID ==
[~2020-09-10] VITALS: Ht 160 cm; Wt 95.3 kg
[~2020-09-10 09:19] MED LIST changes: +ASPIRIN81 MG ORAL; +IBUPROFEN600 M1 ORAL
--- NOTE | 2020-09-10 09:35 | NUR ---
ED Nurse Note:pt with symptoms as per triage. able to weight bear well.
--- NOTE | 2020-09-10 09:40 | NUR ---
ED Nurse Note:xray aware to do order
[2020-09-10] MEDS ORDERED: ACETAMINOPHEN-1 EAC1 ORAL (10:27)
--- NOTE | 2020-09-10 10:35 | NUR ---
ED Nurse Note:pt with knee wrapped with maurizio wrap and given d/c aci. pt able to ambulate well. aware and agrees to f/u plan
[2020-09-10 10:45] VITALS: BP 143/80
--- NOTE | 2020-09-10 12:01 | Emergency Room Report ---
History of Present Illness General Chief Complaint: Lower Extremity Injury Source: Patient Present Illness HPI 60-year-old female presents for evaluation. Complaining of right knee pain and swelling. States been having the symptoms on and off for 2 weeks. Cannot recall any specific fall or injury. States that the change in weather and the cold weather has likely precipitated her pain. Throbbing, 6 out of 10, nonradiating. Is able to bear weight. No other aggravating relieving factors. Denies any other associated symptoms Allergies: Coded Allergies: No Known Allergies (Unverified , 12/15/16) COVID-19 Screening Contact w/high risk pt: No Experienced COVID-19 symptoms?: No COVID-19 Testing performed MISSION ANALYST: No Patient History Last Menstrual Period: na Nursing Documentation-[facility] Past Medical History: No History, Except For Hx Cardiac Problems: Yes Hx Hypertension: Yes Hx Diabetes: Yes Hx Cancer: No Hx Gastrointestinal Problems: Yes Hx Neurological Problems: No Review of Systems All Other Systems: negative except mentioned in HPI Physical Exam Vital Signs Date Time Temp Pulse Resp B/P (MAP) Pulse Ox O2 Delivery O2 Flow Rate FiO2 09/10/20 09:35 97.5 66 20 143/80 (101) 97 Room Air Sp02 EP Interpretation: reviewed, normal General Appearance: no apparent distress, alert, GCS 15, non-toxic Head: normocephalic, atraumatic Eyes: bilateral eye normal inspection, bilateral eye PERRL ENT: hearing grossly normal, normal pharynx, no angioedema, normal voice Neck: full range of motion, supple/symm/no masses Respiratory: chest non-tender, lungs clear, normal breath sounds, speaking full sentences Cardiovascular #1: regular rate, rhythm, no edema Cardiovascular #2: 2+ carotid (R), 2+ carotid (L), 2+ radial (R), 2+ radial (L), 2+ dorsalis pedis (R), 2+ dorsalis pedis (L) Gastrointestinal: normal bowel sounds, non tender, soft, non-distended, no guarding, no rebound Rectal: deferred Genitourinary: normal inspection, no CVA tenderness Musculoskeletal: back normal, normal range of motion, gait/station normal, swelling - R knee Neurologic: alert, motor strength/tone normal, oriented x3, sensory intact, responsive, speech normal Psychiatric: judgement/insight normal, memory normal, mood/affect normal, no suicidal/homicidal ideation Reflexes: 3+ bicep (R), 3+ bicep (L), 3+ tricep (R), 3+ tricep (L), 3+ knee (R), 3+ knee (L) Lymphatic: no adenopathy Procedures Splinting Splinting : Consent: Verbal Pre-Made Type: [place] wrap Pre-Proc Neuro Vasc Exam: normal Post-Proc Neuro Vasc Exam: normal Patient Tolerated: Well Complications: None Medical Decision Making Diagnostic Impression: Primary Impression: Knee pain Qualified Codes: M25.561 - Pain in right knee ER Course Ankle sprain discharge hospital Course 57-year-old M presents to ED complaining of R foot pain s/p trip and fall Fracture, dislocation, sprain, contusion Clinical course Patient placed on stretcher. After initial history and physical, I ordered x- rays of right knee Xrays prelim read shows no acute fracture/dislocation. There is significant joint space narrowing. Consistent with inflammatory arthritis. Discussed with patient. Placed in [place] wrap. Safe for discharge with close outpatient follow-up. I will provide Ortho ref erral Diagnosis - knee pain Stable and discharged to home with prescription for tylenol #3. apply ice, keep elevated. weight bear as tolerated. Followup with PMD. Return to ED if symptoms recur or worsen Other X-Ray Diagnostic Results Other X-Ray Diagnostic Results : X-Ray ordered: R knee # of Views/Limited Vs Complete: 3 View Indication: Pain EP Interpretation: Yes Interpretation: no dislocation, no soft tissue swelling, no fractures Impression: Other - DJD Electronically Signed by: Electronically signed by Arnav Tay MD Last Vital Signs Date Time Temp Pulse Resp B/P (MAP) Pulse Ox O2 Delivery O2 Flow Rate FiO2 09/10/20 10:45 66 20 143/80 97 Room Air 09/10/20 09:35 97.5 Status: improved Disposition: HOME, SELF-CARE Condition: Stable Scripts Acetaminophen With Codeine (T#3) (TYLENOL #3 TAB*) Y Tab 1 TAB ORAL Q8H PRN for For Pain, #12 TAB Prov: Arnav Tay MD 09/10/20 Referrals: [facility]ERR[facility] Open 24 hour /7 days a week by Appointment Only [address] [facility] [id number] Patient Instructions: Knee Pain, [id number] Arnav Tay MD Sep 10, 2020 12:01
--- NOTE | 2020-09-10 12:43 | Diagnostic Imaging Report ---
Indication: Right knee pain Technique: 3 views of the right knee Comparison: None Findings: There is degenerative narrowing the medial joint compartment. There are medial osteophytes. No acute fracture. No dislocation. There are superior pole patellar osteophytes. No effusion. Impression: Degenerative changes. No acute bony trauma
== END 2020-09-10 10:35 | disposition home or self-care (01) ==
LOC: EMR 10:10
DX: M25.561 Pain in right knee (principal); I10 Essential (primary) hypertension; E11.9 Type 2 diabetes mellitus without complications
CPT/HCPCS: 73562; Z7502; 99283